=== PATIENT | male | born 1975 | race Caucasian/White ===

== ENCOUNTER 2016-07-06 18:30 | Emergency (ER) | payer MEDICARE, MEDICAID ==
[~2016-07-06] VITALS: Ht 177.8 cm; Wt 95.0 kg
[~2016-07-06 18:30] MED LIST: DULO1CAP2 PO; LITH300T3 PO; SERO100T PO
[2016-07-06 18:33] VITALS: BP 152/85; PULSE 68; RESP 14; TEMP 98.7; O2SAT 98
--- NOTE | 2016-07-06 22:57 | PD ---
HPI Chief Complaint: Psychiatric Symptoms Time Seen by Provider: 22:42 Travel History International Travel<30 days: No Contact w/Intl Traveler<30days: No Traveled to known affect area: No History of Present Illness HPI Patient is a 40-year-old male who presents emergency department for psychiatric evaluation. The patient states he has a history of schizoaffective disorder for which she takes lithium, Seroquel, and another antidepressant medication. The patient states she's been noncompliant with his medications for 2 and half weeks because he was only given a prescription for 5 days when he was discharged, last month, from the psychiatric department. The patient states he was supposed to follow-up at [facility], however, they will not take his insurance. The patient does complain of suicide ideation, denies any current homicidal ideation. He does note occasional auditory hallucinations, but denies any current voices. He denies any visual hallucinations or delusions. The patient did drink alcohol yesterday, last use marijuana 2 days ago, but denies any illicit drug use or alcohol use today. Symptoms are moderate, possibly exacerbated by history of schizoaffective disorder, and there are no current alleviating factors. PFSH Past Medical History Arthritis: No Asthma: No Autoimmune Disease: No Blood Disorders: No Anxiety: Yes Depression: Yes Heart Rhythm Problems: No Cancer: No Cardiovascular Problems: No High Cholesterol: No Chemotherapy: No Chest Pain: No Congestive Heart Failure: No COPD: No Cerebrovascular Accident: No Diabetes: No Diminished Hearing: No Endocrine: No GERD: No Genitourinary: No Headaches: No Hiatal Hernia: No Herniated Disk: Yes (x 4) Hypertension: Yes Immune Disorder: No Kidney Stones: No Musculoskeletal: Yes (herniated disk) Neurologic: No Psychiatric: Yes Reproductive: No Respiratory: No Migraines: No Myocardial Infarction: No Radiation Therapy: No Renal Failure: No Schizophrenia: Yes Seizures: Yes Sickle Cell Disease: No Sleep Apnea: No Thyroid Disease: No Ulcer: No Past Surgical History Abdominal Surgery: No AICD: No Arteriovenous Shunt: No Cardiac Surgery: No Ear Surgery: No Endocrine Surgery: No Eye Surgery: No Genitourinary Surgery: No Gynecologic Surgery: No Insulin Pump: No Joint Replacement: No Oral Surgery: No Pacemaker: No Thoracic Surgery: No Other Surgery: No Social History Alcohol Use: Yes (occassionally ) Tobacco Use: Yes (1PPD ) Substance Use: Yes (mArijuana) Allergies-Medications (Allergen,Severity, Reaction): Coded Allergies: Zoloft (Verified Allergy, Severe, Anaphylaxis, 07/06/16) Haldol (Verified Allergy, Mild, 07/06/16) Risperdal (Verified Allergy, Unknown, 07/06/16) Per CINTHIA Campa, [facility]. Reported Meds & Prescriptions Reported Meds & Active Scripts Active Seroquel (Quetiapine Fumarate) 100 Mg Tab 100 Mg PO DIRECTED 5 Days Take 100mg by mouth in the morning and 200mg by mouth at bedtime. [place] Carbonate 300 Mg Tab 300 Mg PO TID [address] (Duloxetine HCl) 30 Mg Capdr 30 Mg PO DAILY 5 Days Reported Lortab (Hydrocodone-Acetaminophen) 10-325 Mg Tab 1 Tab PO Q4H PRN Review of Systems Except as stated in HPI: all other systems reviewed are Neg General / Constitutional: No: Fever Cardiovascular: No: Chest Pain or Discomfort Respiratory: No: Shortness of Breath Gastrointestinal: No: Nausea, Vomiting, Abdominal Pain Psychiatric: Positive: Suicidal Ideations, Disorder of Thought, Mood Disorder, Substance Abuse, No: Homicidal Ideation Physical Exam Narrative GENERAL: Awake, alert, nontoxic-appearing 40-year-old male who appears his stated age and is in no acute respiratory distress. SKIN: Warm and dry. HEAD: Atraumatic. Normocephalic. EYES: Pupils equal and round. Apparent extra. The right eye. ENT: No nasal bleeding or discharge. Mucous membranes pink and moist. NECK: Trachea midline. No JVD. CARDIOVASCULAR: Regular rate and rhythm. No murmur appreciated. RESPIRATORY: No accessory muscle use. Clear to auscultation. Breath sounds equal bilaterally. MUSCULOSKELETAL: No obvious deformities. No clubbing. No cyanosis. No edema. NEUROLOGICAL: Awake and alert. No obvious cranial nerve deficits. Motor grossly within normal limits. Normal speech. Nonfocal. Oriented 4. Follows commands without difficulty. PSYCHIATRIC: Appropriate mood and affect; insight and judgment normal. Data Data Last Documented VS Vital Signs Date Time Temp Pulse Resp B/P Pulse Ox O2 Delivery O2 Flow Rate FiO2 07/06/16 23:00 58 16 07/06/16 18:33 98.7 152/85 98 Room Air Orders Complete Blood Count With Diff (07/06/16 22:50) Comprehensive Metabolic Panel (07/06/16 22:50) Drug Screen, Random Urine (07/06/16 22:50) Alcohol (Ethanol) (07/06/16 22:50) Psych Screen (07/06/16 22:50) [place] (Li) (07/06/16 22:50) Labs Laboratory Tests Test 07/07/16 00:00 White Blood Count 5.6 TH/MM3 Red Blood Count 5.59 MIL/MM3 Hemoglobin 15.9 GM/DL Hematocrit 46.1 % Mean Corpuscular Volume 82.4 FL Mean Corpuscular Hemoglobin 28.4 PG Mean Corpuscular Hemoglobin 34.5 % Concent Red Cell Distribution Width 13.7 % Platelet Count 198 TH/MM3 Mean Platelet Volume 9.7 FL Neutrophils (%) (Auto) 53.1 % Lymphocytes (%) (Auto) 28.4 % Monocytes (%) (Auto) 12.2 % Eosinophils (%) (Auto) 5.0 % Basophils (%) (Auto) 1.3 % Neutrophils # (Auto) 3.0 TH/MM3 Lymphocytes # (Auto) 1.6 TH/MM3 Monocytes # (Auto) 0.7 TH/MM3 Eosinophils # (Auto) 0.3 TH/MM3 Basophils # (Auto) 0.1 TH/MM3 CBC Comment DIFF FINAL Differential Comment Sodium Level 137 MEQ/L Potassium Level 4.1 MEQ/L Chloride Level 102 MEQ/L Carbon Dioxide Level 31.4 MEQ/L Anion Gap 4 MEQ/L Blood Urea Nitrogen 9 MG/DL Creatinine 0.99 MG/DL Estimat Glomerular Filtration 84 ML/MIN Rate Random Glucose 120 MG/DL Calcium Level 9.0 MG/DL Total Bilirubin 0.8 MG/DL Aspartate Amino Transf 23 U/L (AST/SGOT) Alanine Aminotransferase 27 U/L (ALT/SGPT) Alkaline Phosphatase 74 U/L Total Protein 6.7 GM/DL Albumin 4.0 GM/DL [place] Level LESS THAN 0.1 MEQ/L Ethyl Alcohol Level LESS THAN 3 MG/DL MDM Medical Decision Making Medical Screen Exam Complete: Yes Emergency Medical Condition: Yes Medical Record Reviewed: Yes Interpretation(s) Laboratory Tests Test 07/07/16 00:00 White Blood Count 5.6 TH/MM3 Red Blood Count 5.59 MIL/MM3 Hemoglobin 15.9 GM/DL Hematocrit 46.1 % Mean Corpuscular Volume 82.4 FL Mean Corpuscular Hemoglobin 28.4 PG Mean Corpuscular Hemoglobin 34.5 % Concent Red Cell Distribution Width 13.7 % Platelet Count 198 TH/MM3 Mean Platelet Volume 9.7 FL Neutrophils (%) (Auto) 53.1 % Lymphocytes (%) (Auto) 28.4 % Monocytes (%) (Auto) 12.2 % Eosinophils (%) (Auto) 5.0 % Basophils (%) (Auto) 1.3 % Neutrophils # (Auto) 3.0 TH/MM3 Lymphocytes # (Auto) 1.6 TH/MM3 Monocytes # (Auto) 0.7 TH/MM3 Eosinophils # (Auto) 0.3 TH/MM3 Basophils # (Auto) 0.1 TH/MM3 CBC Comment DIFF FINAL Differential Comment Sodium Level 137 MEQ/L Potassium Level 4.1 MEQ/L Chloride Level 102 MEQ/L Carbon Dioxide Level 31.4 MEQ/L Anion Gap 4 MEQ/L Blood Urea Nitrogen 9 MG/DL Creatinine 0.99 MG/DL Estimat Glomerular Filtration 84 ML/MIN Rate Random Glucose 120 MG/DL Calcium Level 9.0 MG/DL Total Bilirubin 0.8 MG/DL Aspartate Amino Transf 23 U/L (AST/SGOT) Alanine Aminotransferase 27 U/L (ALT/SGPT) Alkaline Phosphatase 74 U/L Total Protein 6.7 GM/DL Albumin 4.0 GM/DL [place] Level LESS THAN 0.1 MEQ/L Ethyl Alcohol Level LESS THAN 3 MG/DL Differential Diagnosis differential diagnosis includes schizoaffective disorder, mood disorder, substance induced mood disorder, suicidal ideation, depressive disorder, malingering. Narrative Course Labs are drawn and sent. Psychiatric evaluation was ordered. [place] is less than 0.1. Labs are unremarkable. The patient is medically cleared to be evaluated by psychiatry. Disposition as per psych. Diagnosis Primary Impression: Depression with suicidal ideation Additional Impression: Schizoaffective disorder, depressive type Condition: Stable Amrit Del Rio MD Jul 06, 2016 22:57
[2016-07-06] MEDS ORDERED: HYDR-3535 PO (23:43)
[2016-07-07 00:18] LABS: BASOPHIL # 0.1 TH/MM3 (0-0.2); BASOPHIL % 1.3 % (0.0-2.0); EOSINOPHIL # 0.3 TH/MM3 (0-0.4); HEMATOCRIT 46.1 % (39.0-51.0); HEMO FLAGS DIFF FINAL; LYMPH % 28.4 % (9.0-44.0); LYMPHOCYTE # 1.6 TH/MM3 (1.0-4.8); MEAN CELL VOLUME 82.4 FL (80.0-100.0); MEAN CORPUSCULAR HEMOGLOBIN 28.4 PG (27.0-34.0); MEAN CORPUSCULAR HGB CONC 34.5 % (32.0-36.0); MONO % 12.2 % (0.0-8.0); NEUT % 53.1 % (16.0-70.0); PLATELET COUNT 198 TH/MM3 (150-450); RED BLOOD COUNT 5.59 MIL/MM3 (4.50-5.90); RED CELL DISTRIBUTION WIDTH 13.7 % (11.6-17.2); WHITE BLOOD COUNT 5.6 TH/MM3 (4.0-11.0)
[2016-07-07 00:38] LABS: ALT (GPT) 27 U/L (12-78); ANION GAP 4 MEQ/L (5-15); AST (GOT) 23 U/L (15-37); BICARBONATE 31.4 MEQ/L (21.0-32.0); BLOOD UREA NITROGEN 9 MG/DL (7-18); CHLORIDE 102 MEQ/L (98-107); GLOMERULAR FILTRATION RATE 84 ML/MIN (>89); POTASSIUM 4.1 MEQ/L (3.5-5.1); SODIUM (NA) 137 MEQ/L (136-145)
[2016-07-07 00:41] LABS: ALKALINE PHOSPHATASE 74 U/L (45-117); TOTAL BILIRUBIN ADULT 0.8 MG/DL (0.2-1.0)
[2016-07-07 08:51] LABS: AMPHETAMINE, URINE NEG (NEG); BARBITURATES, URINE NEG (NEG); COCAINE, URINE NEG (NEG)
[2016-07-07 12:51] VITALS: BP 122/58; PULSE 56; RESP 18; TEMP 97.8; O2SAT 98
[2016-07-07 18:26] VITALS: BP 136/65; PULSE 88; RESP 17; O2SAT 95
[2016-07-07 22:43] VITALS: BP 139/71; PULSE 54; RESP 18; O2SAT 99
[2016-07-08 02:33] VITALS: BP 115/62; PULSE 57; RESP 18; O2SAT 100
[2016-07-08 06:27] VITALS: BP 115/67; PULSE 62; RESP 17; O2SAT 98
[2016-07-08 10:29] VITALS: BP 113/64; PULSE 68; RESP 16; O2SAT 98
--- NOTE | 2016-07-08 11:19 | PD ---
History of Present Illness Chief Complaint: Psychiatric Symptoms Time Seen by Provider: 10:45 Travel History International Travel<30 Days: No Contact w/Intl Traveler<30days: No Known affected area: No Legal Status Legal Status: Voluntary History of Present Illness: History of Present Illness HPI Patient is a 40-year-old male with history of schizoaffective disorder bipolar type who presents emergency department on a voluntary basis for psychiatric evaluation. As per Ed documentation included in this report "the patient states she's been noncompliant with his psychiatric medications for 2 and half weeks because he was only given a prescription for 5 days when he was discharged last month . The patient states he was supposed to follow-up at [facility] , however, they will not take his insurance. The patient does complain of suicide ideation, denies any current homicidal ideation. He does note occasional auditory hallucinations, but denies any current voices. He denies any visual hallucinations or delusions. The patient did drink alcohol yesterday , last use marijuana 2 days ago, but denies any illicit drug use or alcohol use today. No toxicology report is available at this time. BAL is less than 3. Patient has been monitored here in the ED for over 24 hours with no behavioral or suicidality.He has slept well and has eaten well. He has voiced no complaints. As per medical record review he was last hosp at [facility] on Jun 08 until May. At the time he was under the care of Dr. Suárez. In terms of psychiatric follow up he provides various different reasons for not adhering to his medications such as not having transportation, not having money to buy the medication. At some point he did report that his PCP Dr. Chong was prescribing his medications and that he planned on returning to him for follow up care. Patient alert and oriented, speech is clear and logical. He presents as very calm, engaging, cooperative. Reports he slept well.Does not appear to be responding to internal stimuli. There is no indication of any acute psychiatric symptomatology at this time. He reports that he has been experiencing difficulties for the past 12 years including that he believes that his house has been under video surveillance. He does not present any acute stressors prompting his seeking treatment at the ED except to say that he has been off his medications. Patient does not report suicidal ideation until we begin to discuss possible discharge from the ED. He then states " that I may become suicidal and may in fact try to obtain a weapon". When asked if he has a weapon he states he does not own any weapon but that he may know where to purchase one. PFSH Past Medical History Arthritis: No Asthma: No Autoimmune Disease: No Blood Disorders: No Anxiety: Yes Depression: Yes Heart Rhythm Problems: No Cancer: No Cardiovascular Problems: No High Cholesterol: No Chemotherapy: No Chest Pain: No Congestive Heart Failure: No COPD: No Cerebrovascular Accident: No Diabetes: No Diminished Hearing: No Endocrine: No GERD: No Genitourinary: No Headaches: No Hiatal Hernia: No Herniated Disk: Yes (x 4) Hypertension: Yes Immune Disorder: No Kidney Stones: No Musculoskeletal: Yes (herniated disk) Neurologic: No Psychiatric: Yes Reproductive: No Respiratory: No Migraines: No Myocardial Infarction: No Radiation Therapy: No Renal Failure: No Schizophrenia: Yes Seizures: Yes Sickle Cell Disease: No Sleep Apnea: No Thyroid Disease: No Ulcer: No Tetanus Vaccination: Unknown Influenza Vaccination: No Past Surgical History Surgical History: No Previous Surgery Abdominal Surgery: No AICD: No Arteriovenous Shunt: No Cardiac Surgery: No Ear Surgery: No Endocrine Surgery: No Eye Surgery: No Genitourinary Surgery: No Gynecologic Surgery: No Insulin Pump: No Joint Replacement: No Oral Surgery: No Pacemaker: No Thoracic Surgery: No Other Surgery: No Psychiatric History Psychiatric History Hx Psychiatric Treatment: [facility], [facility] [place] History of Inpatient [place]: [place] [place] Guns or firearms in home: No Social History Single male who lives by himself in a motel room. he reports he owns a home that he is remodeling. He reports he is disabled. Hx Alcohol Use: Yes (occassionally ) Hx Tobacco Use: Yes (1PPD ) Hx Substance Use: Yes (mArijuana) Substance Use Type: Crack, Marijuana, Cocaine Hx of Substance Use Treatment: No Family Psychiatric History Mother with reported hx of schizophrenia Allergies-Medications (Allergen,Severity, Reaction): Coded Allergies: Zoloft (Verified Allergy, Severe, Anaphylaxis, 07/06/16) Haldol (Verified Allergy, Mild, 07/06/16) Risperdal (Verified Allergy, Unknown, 07/06/16) Per CINTHIA Campa, [facility]. Reported Meds & Prescriptions Reported Meds & Active Scripts Active Seroquel (Quetiapine Fumarate) 100 Mg Tab 100 Mg PO DIRECTED 5 Days Take 100mg by mouth in the morning and 200mg by mouth at bedtime. [place] Carbonate 300 Mg Tab 300 Mg PO TID [address] (Duloxetine HCl) 30 Mg Capdr 30 Mg PO DAILY 5 Days Reported Lortab (Hydrocodone-Acetaminophen) 10-325 Mg Tab 1 Tab PO Q4H PRN Review of Systems Except as stated in HPI: all other systems reviewed are Neg Psychiatric: COMPLAINS OF: Mood changes Exam Alert: Yes [place]: Person (ox4) Mood: Calm Affect: Euthymic Speech: Clear, Logical Eye Contact: Indirect Memory Intact: Comment (not impaired) Hallucinations: Other (negative) Delusions: No Suicidal: Ideation (negative. On[place] conditional upon discussion of discharge. ) Homicidal: Ideation (Negative) Insight/Judgement Poor. Poor MDM Medical Decision Making Medical Record Reviewed: Yes Assessment/Plan 40 year old male with history of Schizoaffective disorder who presents under a voluntary status under a voluntary status who reported that he may become suicidal in the future if he were to be discharged. He also requests to be transferred to another facility and provides me with a brochure from [employer]. He is clearly bargaining and appears to be at least malingering and exaggerating his symptomatology in order to obtain assisted or other secondary gain. he does not present inminnent risk to self at this time and his symptoms appear to be conditional in nature. Patient at this time does not meet criteria for BA. He will be discharged at this time with a 10 day supply of medication Instructed to follow up with [facility]. Prior to leaving RN in [facility] pod informed me that patient refused his taxi home as he wanted to go to the mall to walk aroaund. Orders Diet Regular Basic (07/07/16 Lunch) Diet Regular Basic (07/07/16 Dinner) Hydroxyzine Pamoate (Vistaril) (07/07/16 21:45) Diet Regular Basic (07/08/16 Breakfast) Diet Regular Basic (07/08/16 Lunch) Results Vital Signs Date Time Temp Pulse Resp B/P Pulse Ox O2 Delivery O2 Flow Rate FiO2 07/08/16 10:29 68 16 113/64 98 Room Air 07/08/16 06:27 62 17 115/67 98 07/08/16 02:33 57 18 115/62 100 Room Air 07/07/16 22:43 54 18 139/71 99 Room Air 07/07/16 18:26 88 17 136/65 95 Room Air 07/07/16 12:51 97.8 56 18 122/58 98 Room Air Diagnosis Primary Impression: Adjustment disorder with mixed disturbance of emotions and conduct Additional Impression: Schizoaffective disorder, bipolar type Ruled Out: Depression with suicidal ideation Psychiatrically Cleared: Yes Prescriptions Quetiapine (Seroquel)100 Mg [id number] Mg PO BID #20 TAB Ref 0 Prov:Arianna Barksdale ARN 07/08/16 [place]ate 300 Mg [id number] Mg PO TID #30 CAP Ref 0 Prov:Arianna Barksdale ARN 07/08/16 Duloxetine (Jose STOVALL)30 Mg Capdr30 Mg PO DAILY #10 CAP Ref 0 Prov:Arianna Barksdale ARN 07/08/16 Disposition: 01 DISCHARGE HOME Condition: Stable Problem Qualifiers Arianna Barksdale ARN Jul 08, 2016 11:18
[2016-07-08] MEDS ORDERED: CYMB30CA PO (11:29)
[2016-07-08] MEDS ORDERED: LITH300C2 PO (11:30)
[2016-07-08] MEDS ORDERED: SERO100T PO (11:32)
[2016-07-08] MEDS ORDERED: LITHIUM CARBONATE 300 MG TAB PO SCH (13:00)
[2016-07-08] MEDS ORDERED: QUEtiapine FUMARATE 100 MG TAB PO SCH (21:00)
[2016-07-09] MEDS ORDERED: DULoxetine HCl DR 30 MG CAP PO SCH (09:00)
== END 2016-07-08 12:15 | disposition home or self-care (01) ==
LOC: NEPA 18:30 → NEPJ 07-08 12:15
DX: F43.25 Adjustment disorder with mixed disturbance of emotions and conduct (principal); F25.0 Schizoaffective disorder, bipolar type; I10 Essential (primary) hypertension; F17.210 Nicotine dependence, cigarettes, uncomplicated
CPT/HCPCS: 80053; 80178; 80307; 80320; 85025; 99284

== ENCOUNTER 2016-07-08 22:00 | Inpatient (IN) | payer MEDICARE, MEDICAID ==
[~2016-07-08] VITALS: Ht 177.8 cm; Wt 86.7 kg
[~2016-07-08 22:00] MED LIST changes: +CYMB30CA PO; +HYDR-3535 PO; +LITH300C2 PO
[2016-07-08 22:11] VITALS: BP 141/82; PULSE 80; RESP 16; TEMP 98.1; O2SAT 100
--- NOTE | 2016-07-08 22:23 | PD ---
HPI Chief Complaint: Psychiatric Symptoms Time Seen by Provider: 22:10 Travel History International Travel<30 days: No Contact w/Intl Traveler<30days: No Traveled to known affect area: No History of Present Illness HPI This is a 40-year-old male who reports a history of schizophrenia, bipolar disorder, anxiety and depression. He presents under [place] act initiated by the [employer]. According to his paperwork, "Yara stated he attempted to commit suicide 3 days ago which did not work. On today's date Yara stated he was having the urge to kill himself again." The patient reports that he came here voluntarily on July 06 for psychiatric evaluation. He was discharged this morning and he says that [place] and [place]. He was feeling increasingly depressed and suicidal and this prompted him to call 911. He was then placed under [place] act. He denies any drug or alcohol use tonight. He has been prescribed Seroquel, lithium and Cymbalta in the past and was given refills this morning however he never made it to the pharmacy to get them filled. He says that he's been feeling depressed, suicidal. He believes that there are cameras in his house and so he has been living in a motel for the past 9 months in order to avoid the cameras. He does not currently see a psychiatrist. He has no other complaints at this time. [facility] Past Medical History Arthritis: No Asthma: No Autoimmune Disease: No Blood Disorders: No Anxiety: Yes Depression: Yes Heart Rhythm Problems: No Cancer: No Cardiovascular Problems: No High Cholesterol: No Chemotherapy: No Chest Pain: No Congestive Heart Failure: No COPD: No Cerebrovascular Accident: No Diabetes: No Diminished Hearing: No Endocrine: No GERD: No Genitourinary: No Headaches: No Hiatal Hernia: No Herniated Disk: Yes (x 4) Hypertension: Yes Immune Disorder: No Kidney Stones: No Musculoskeletal: Yes (herniated disk) Neurologic: No Psychiatric: Yes Reproductive: No Respiratory: No Migraines: No Myocardial Infarction: No Radiation Therapy: No Renal Failure: No Schizophrenia: Yes Seizures: Yes Sickle Cell Disease: No Sleep Apnea: No Thyroid Disease: No Ulcer: No Tetanus Vaccination: Never Vaccinated Influenza Vaccination: No Past Surgical History Surgical History: No Previous Surgery Abdominal Surgery: No AICD: No Arteriovenous Shunt: No Cardiac Surgery: No Ear Surgery: No Endocrine Surgery: No Eye Surgery: No Genitourinary Surgery: No Gynecologic Surgery: No Insulin Pump: No Joint Replacement: No Oral Surgery: No Pacemaker: No Thoracic Surgery: No Other Surgery: No Social History Alcohol Use: Yes (occassionally ) Tobacco Use: Yes (1PPD ) Substance Use: Yes (mArijuana) Allergies-Medications (Allergen,Severity, Reaction): Coded Allergies: Zoloft (Verified Allergy, Severe, Anaphylaxis, 07/08/16) Haldol (Verified Allergy, Mild, 07/08/16) Risperdal (Verified Allergy, Unknown, 07/08/16) Per CINTHIA Campa, [facility]. Reported Meds & Prescriptions Reported Meds & Active Scripts Active Seroquel (Quetiapine Fumarate) 100 Mg Tab 100 Mg PO BID [place] Carbonate 300 Mg Cap 300 Mg PO TID Cymbalta DR (Duloxetine HCl) 30 Mg Capdr 30 Mg PO DAILY Seroquel (Quetiapine Fumarate) 100 Mg Tab 100 Mg PO DIRECTED 5 Days Take 100mg by mouth in the morning and 200mg by mouth at bedtime. [place] Carbonate 300 Mg Tab 300 Mg PO TID [address] (Duloxetine HCl) 30 Mg Capdr 30 Mg PO DAILY 5 Days Reported Lortab (Hydrocodone-Acetaminophen) 10-325 Mg Tab 1 Tab PO Q4H PRN Review of Systems Except as stated in HPI: all other systems reviewed are Neg Physical Exam Narrative GENERAL: Well-developed well-nourished male in no acute distress SKIN: Warm and dry. HEAD: Atraumatic. Normocephalic. EYES: Pupils equal and round. No scleral icterus. No injection or drainage. ENT: No nasal bleeding or discharge. Mucous membranes pink and moist. NECK: Trachea midline. No JVD. CARDIOVASCULAR: Regular rate and rhythm. No murmur appreciated. RESPIRATORY: No accessory muscle use. Clear to auscultation. Breath sounds equal bilaterally. GASTROINTESTINAL: Abdomen soft, non-tender, nondistended. MUSCULOSKELETAL: No obvious deformities. NEUROLOGICAL: Awake and alert. No obvious cranial nerve deficits. Motor grossly within normal limits. Normal speech. PSYCHIATRIC: Insight and judgment appear limited. Appropriate mood. Data Data Last Documented VS Vital Signs Date Time Temp Pulse Resp B/P Pulse Ox O2 Delivery O2 Flow Rate FiO2 07/08/16 22:11 98.1 80 16 141/82 100 Orders Drug Screen, Random Urine (07/08/16 22:16) Alcohol (Ethanol) (07/08/16 22:16) Psych Screen (07/08/16 22:16) [place] (Li) (07/08/16 22:16) Labs Laboratory Tests Test 07/08/16 22:10 [place] Level 1.4 MEQ/L Ethyl Alcohol Level LESS THAN 3 MG/DL MDM Medical Decision Making Medical Screen Exam Complete: Yes Emergency Medical Condition: Yes Medical Record Reviewed: Yes Differential Diagnosis Schizophrenia, medication noncompliance, acute psychosis, bipolar disorder, substance induced mood disorder, malingering Narrative Course 40-year-old male who reports a history of bipolar disorder and schizophrenia presents under [place] act for evaluation of suicidal ideation. He was just discharged this morning by psychiatry. He was given refills of Seroquel, lithium and Cymbalta however he has not started taking them. I have reviewed his lab work from 2 days ago and it was unremarkable. We will recheck his lithium level today although he says that he has not been taking the lithium. We will also recheck a drug screen and an alcohol level. Mental health screening discussed with the patient. Psychiatric screen ordered. The patient is medically cleared for psychiatric disposition. Dom Haddad Jul 08, 2016 22:23
[2016-07-09 01:23] LABS: AMPHETAMINE, URINE NEG (NEG); BARBITURATES, URINE NEG (NEG); COCAINE, URINE NEG (NEG)
[2016-07-09 06:00] VITALS: BP 97/52; PULSE 54; RESP 18; O2SAT 98
[2016-07-09 10:39] VITALS: BP 114/57; PULSE 55; RESP 17; TEMP 98.4; O2SAT 100
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
[2016-07-09] MEDS ORDERED: MAGNESIUM HYDROXIDE SUSP 30 ML CUP PO PRN (12:45)
[2016-07-09] MEDS ORDERED: LORazepam 2 MG/ML VIAL IM PRN ×2 (12:45)
[2016-07-09] MEDS ORDERED: ALUMINUM/MAGNESIUM/SIMETH 30 ML CUP PO PRN (12:45)
[2016-07-09] MEDS ORDERED: LITHIUM CARBONATE 300 MG TAB PO SCH (14:00)
[2016-07-09 14:06] VITALS: BP 114/57
[2016-07-09 14:23] VITALS: BP 111/68; PULSE 68; RESP 18; TEMP 98.4; O2SAT 97
[2016-07-09] MEDS: NICOTINE 21 MG/24 HR PATCH T-DERMAL SCH (15:34)
[2016-07-09] MEDS: DULoxetine HCl DR 30 MG CAP PO SCH (20:51)
[2016-07-09] MEDS: ACETAMINOPHEN 325 MG TAB PO PRN (20:51)
[2016-07-09] MEDS: LORazepam 0.5 MG TAB PO PRN (20:51)
[2016-07-09] MEDS: QUEtiapine FUMARATE 200 MG TAB PO SCH (21:48)
[2016-07-10 06:15] VITALS: BP 104/68; PULSE 52; RESP 18; TEMP 97.6
[2016-07-10 07:29] LABS: ANION GAP 6 MEQ/L (5-15); BLOOD UREA NITROGEN 13 MG/DL (7-18); CHLORIDE 104 MEQ/L (98-107); GLOMERULAR FILTRATION RATE 87 ML/MIN (>89); POTASSIUM 3.7 MEQ/L (3.5-5.1); SODIUM (NA) 140 MEQ/L (136-145)
[2016-07-10 07:30] LABS: HDL CHOLESTEROL 34.2 MG/DL (40.0-60.0)
[2016-07-10 07:31] LABS: LDL CHOLESTEROL 89 MG/DL (0-99)
[2016-07-10] MEDS: NICOTINE 21 MG/24 HR PATCH T-DERMAL SCH (08:27)
[2016-07-10] MEDS: QUEtiapine FUMARATE 100 MG TAB PO SCH (08:27)
[2016-07-10] MEDS: DULoxetine HCl DR 30 MG CAP PO SCH ×2 (09:17→20:10)
[2016-07-10] MEDS: LORazepam 0.5 MG TAB PO PRN (09:17)
[2016-07-10 10:44] LABS: HEMOGLOBIN A1a 0.7 %; HEMOGLOBIN A1b 1.2 %; HEMOGLOBIN Ao 88.1 %; HEMOGLOBIN LA1C 1.7 %; HEMOGLOBIN P3 3.1 %
--- NOTE | 2016-07-10 11:11 | HHI.PYPN ---
Subjective Remarks Patient was seen and discussed with the wait staff. Patient reported that he still has been feeling frustrated depressed but willing to continue to take the medication. No behavior or management problem reported. He still has lot of anger built-in and feels like he is going to explode. But his learning to control. Encouraged to participate in all the therapeutic activity on the floor. We will ask high school social science teacher to assist in finding an appropriate place. Continue with the same treatment Review of Systems Except as stated in HPI: all other systems reviewed are Neg Psychiatric: COMPLAINS OF: Mood changes, Depression, Delusions Objective Alert: Yes [place]: Person, Place, Situation Mood: Anxious, Depressed, Other (feels frustrated and angry) Affect: Labile Memory Intact: Recent (impaired) Hallucinations: Other (denies any active auditory or visual hallucinations) Delusions: Yes Delusion Type: Paranoid Suicidal: Ideation (denied any suicidal ideation intentions or plan) Homicidal: Ideation (denies but feels angry and wants to hurt people) Insight/Judgement Limited Labs Test 07/10/16 05:43 Sodium Level 140 MEQ/L Potassium Level 3.7 MEQ/L Chloride Level 104 MEQ/L Carbon Dioxide Level 30.0 MEQ/L Anion Gap 6 MEQ/L Blood Urea Nitrogen 13 MG/DL Creatinine 0.96 MG/DL Estimat Glomerular Filtration 87 ML/MIN Rate Random Glucose 81 MG/DL Calcium Level 9.0 MG/DL Triglycerides Level 146 MG/DL Cholesterol Level 152 MG/DL LDL Cholesterol 89 MG/DL HDL Cholesterol 34.2 MG/DL Cholesterol/HDL Ratio 4.44 RATIO Vitals/IOs Vital Signs Date Time Temp Pulse Resp B/P Pulse Ox O2 Delivery O2 Flow Rate FiO2 07/10/16 06:15 97.6 52 18 104/68 07/09/16 14:23 97 07/09/16 06:00 Room Air Intake and Output 07/09/16 07/09/16 07/10/16 08:00 16:00 00:00 Intake Total 480 ml Balance 480 ml Assessment & Plan Problem List: (1) Schizoaffective disorder, depressive type ICD Code: F25.1 (2) Cannabis abuse ICD Code: F12.10 Assessment & Plan Estimated LOS: days Justification for Cont. Inpt. Risk of decompensation and monitoring of the medication Request HC Surrog/Guard Advoc?: No Renzo Black MD Jul 10, 2016 11:11
[2016-07-10] MEDS: ACETAMINOPHEN 325 MG TAB PO PRN ×2 (14:36→20:10)
[2016-07-10 19:38] VITALS: BP 116/65; PULSE 73; RESP 17; TEMP 98.1; O2SAT 97
[2016-07-10] MEDS: QUEtiapine FUMARATE 200 MG TAB PO SCH (20:10)
[2016-07-10] MEDS: LORazepam 1 MG TAB PO PRN (20:10)
[2016-07-11 05:20] VITALS: BP 115/68; PULSE 60; RESP 16; TEMP 97.8
[2016-07-11] MEDS: QUEtiapine FUMARATE 100 MG TAB PO SCH (08:50)
[2016-07-11] MEDS: LORazepam 1 MG TAB PO PRN ×2 (08:50→18:16)
[2016-07-11] MEDS: NICOTINE 21 MG/24 HR PATCH T-DERMAL SCH (08:50)
[2016-07-11] MEDS: DULoxetine HCl DR 30 MG CAP PO SCH ×2 (08:50→20:39)
[2016-07-11] MEDS: ACETAMINOPHEN 325 MG TAB PO PRN (08:50)
[2016-07-11] MEDS: REMOVE OLD NICODERM (NICOTINE) PATCH TD SCH (08:50)
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
[2016-07-11] MEDS: IBUPROFEN 800 MG TAB PO PRN (18:16)
[2016-07-11 19:03] VITALS: BP 138/72; PULSE 73; RESP 18; O2SAT 97
[2016-07-11] MEDS: QUEtiapine FUMARATE 200 MG TAB PO SCH (20:39)
[2016-07-12] MEDS: LORazepam 1 MG TAB PO PRN ×3 (05:08→20:13)
[2016-07-12] MEDS: IBUPROFEN 800 MG TAB PO PRN ×3 (05:08→20:14)
[2016-07-12 05:33] VITALS: BP 129/58; PULSE 69; RESP 16; TEMP 96.6; O2SAT 96
[2016-07-12] MEDS: REMOVE OLD NICODERM (NICOTINE) PATCH TD SCH (09:00)
[2016-07-12] MEDS: DULoxetine HCl DR 30 MG CAP PO SCH ×2 (09:01→20:15)
[2016-07-12] MEDS: QUEtiapine FUMARATE 100 MG TAB PO SCH (09:02)
[2016-07-12] MEDS: NICOTINE 21 MG/24 HR PATCH T-DERMAL SCH (09:02)
--- NOTE | 2016-07-12 15:11 | HHI.PYPN ---
Subjective Remarks Patient was seen and case discussed with nursing. is perseverative on getting inpatient treatment for his hep C. Patient was advised this is an outpatient treatment protocol. Continues to think that cameras were in his house. Keeping to himself sleeping through most of the day Objective Alert: Yes [place]: Person, Place, Situation Mood: Anxious, Depressed, Other (feels frustrated and angry) Affect: Labile Memory Intact: Recent (impaired) Hallucinations: Other (denies any active auditory or visual hallucinations) Delusions: Yes Delusion Type: Paranoid Suicidal: Ideation (denied any suicidal ideation intentions or plan) Homicidal: Ideation (denies but feels angry and wants to hurt people) Insight/Judgement Poor Vitals/IOs Vital Signs Date Time Temp Pulse Resp B/P Pulse Ox O2 Delivery O2 Flow Rate FiO2 07/12/16 05:33 96.6 69 16 129/58 96 07/09/16 06:00 Room Air Assessment & Plan Problem List: (1) Schizoaffective disorder, depressive type ICD Code: F25.1 (2) Cannabis abuse ICD Code: F12.10 Assessment & Plan Continue current treatment plan Justification for Cont. Inpt. Patient would decompensate in a less restrictive setting Request HC Surrog/Guard Advoc?: No Bishop Doe DO Jul 12, 2016 15:11
[2016-07-12 18:45] VITALS: BP 119/58; PULSE 66; RESP 16; O2SAT 95
[2016-07-12] MEDS: QUEtiapine FUMARATE 200 MG TAB PO SCH (20:15)
[2016-07-13] MEDS: IBUPROFEN 800 MG TAB PO PRN ×3 (05:21→18:58)
[2016-07-13] MEDS: LORazepam 1 MG TAB PO PRN ×2 (05:21→11:28)
[2016-07-13 05:47] VITALS: BP 109/71; PULSE 63; RESP 16; TEMP 97; O2SAT 100
[2016-07-13] MEDS: DULoxetine HCl DR 30 MG CAP PO SCH ×2 (08:44→20:37)
[2016-07-13] MEDS: QUEtiapine FUMARATE 100 MG TAB PO SCH (08:44)
[2016-07-13] MEDS: REMOVE OLD NICODERM (NICOTINE) PATCH TD SCH (08:45)
[2016-07-13] MEDS: NICOTINE 21 MG/24 HR PATCH T-DERMAL SCH (08:45)
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
[2016-07-13] MEDS: diphenhydrAMINE HCL 50 MG CAP PO PRN (18:58)
[2016-07-13 19:10] VITALS: BP 126/82; PULSE 65; RESP 18; TEMP 97.2; O2SAT 100
[2016-07-13] MEDS: QUEtiapine FUMARATE 200 MG TAB PO SCH (20:37)
[2016-07-14] MEDS: LORazepam 1 MG TAB PO PRN ×2 (04:00→15:05)
[2016-07-14] MEDS: IBUPROFEN 800 MG TAB PO PRN ×3 (04:00→21:10)
[2016-07-14 06:02] VITALS: BP 124/60; PULSE 57; RESP 17; TEMP 97.4; O2SAT 100
[2016-07-14] MEDS: QUEtiapine FUMARATE 100 MG TAB PO SCH (08:53)
[2016-07-14] MEDS: DULoxetine HCl DR 30 MG CAP PO SCH ×2 (08:53→20:25)
[2016-07-14] MEDS: NICOTINE 21 MG/24 HR PATCH T-DERMAL SCH (08:55)
[2016-07-14] MEDS: REMOVE OLD NICODERM (NICOTINE) PATCH TD SCH (08:55)
--- NOTE | 2016-07-14 11:43 | HHI.PYPN ---
Subjective Remarks Patient was seen and discussed with the staffing coordinator. Patient reported that he has been feeling more depressed and frustrated wants to go back on the lithium but her his lithium level was 1.4 we will redraw the lithium level and see how much it is. No behavior or management problem reported. Patient is willing to go to an [facility] because he has been having difficulty with the outpatient follow-up when he runs out of the medication and comes back into the hospital and he wants to stop the cycle. Denied any active suicidal ideation intentions or plan. caseworker protective services to assist. Continue with the same treatment Review of Systems Except as stated in HPI: all other systems reviewed are Neg Psychiatric: COMPLAINS OF: Anxiety, Mood changes, Depression Objective Alert: Yes [place]: Person, Place, Situation Mood: Anxious, Depressed, Other (feels frustrated ) Affect: Labile Memory Intact: Recent (impaired) Hallucinations: Other (denies any active auditory or visual hallucinations) Delusions: Yes Delusion Type: Paranoid Suicidal: Ideation (patient denied any suicidal ideation or plan in the hospital) Homicidal: Ideation (patient denies any suicidal homicidal ideation or plan while he is in the hospital) Insight/Judgement Fair to limited Vitals/IOs Vital Signs Date Time Temp Pulse Resp B/P Pulse Ox O2 Delivery O2 Flow Rate FiO2 07/14/16 06:02 97.4 57 17 124/60 100 Assessment & Plan Problem List: (1) Schizoaffective disorder, depressive type ICD Code: F25.1 (2) Cannabis abuse ICD Code: F12.10 Assessment & Plan Estimated LOS: days Justification for Cont. Inpt. Risk for decompensation at a lower level of care and noncompliance Request HC Surrog/Guard Advoc?: No Renzo Black MD Jul 14, 2016 11:43
[2016-07-14 20:00] VITALS: BP 126/65; PULSE 67; RESP 18; TEMP 97.3
[2016-07-14] MEDS: QUEtiapine FUMARATE 200 MG TAB PO SCH (20:25)
[2016-07-15] MEDS: LORazepam 1 MG TAB PO PRN ×2 (05:19→17:23)
[2016-07-15] MEDS: IBUPROFEN 800 MG TAB PO PRN ×2 (05:20→17:23)
[2016-07-15 06:03] VITALS: BP 99/55; PULSE 53; RESP 18; TEMP 97.7; O2SAT 98
[2016-07-15] MEDS: DULoxetine HCl DR 30 MG CAP PO SCH ×2 (08:32→20:40)
[2016-07-15] MEDS: QUEtiapine FUMARATE 100 MG TAB PO SCH (08:32)
[2016-07-15] MEDS: NICOTINE 21 MG/24 HR PATCH T-DERMAL SCH (08:33)
[2016-07-15] MEDS: REMOVE OLD NICODERM (NICOTINE) PATCH TD SCH (08:33)
--- NOTE | 2016-07-15 13:29 | HHI.PYPN ---
Subjective Remarks Patient was seen and discussed with the staff radiologist. Patient claimed that he has been doing okay but still feels depressed and lonely and frustrated. Patient also reported that he feels safe in the hospital. Because of his past history of noncompliance in taking medication or running out of the medication he was encouraged to go to an [facility] we will ask social science teacher to check availability. No behavior or management problem reported. Patient is compliant in taking medication. No side effects were complained. Continue with the same treatment Review of Systems Except as stated in HPI: all other systems reviewed are Neg Psychiatric: COMPLAINS OF: Mood changes, Depression Objective Alert: Yes [place]: Person, Place, Situation Mood: Anxious, Depressed, Other (feels frustrated ) Affect: Labile Memory Intact: Recent (impaired) Hallucinations: Other (denies any active auditory or visual hallucinations) Delusions: Yes Delusion Type: Paranoid Suicidal: Ideation (patient denied any suicidal ideation or plan in the hospital) Homicidal: Ideation (patient denies any suicidal homicidal ideation or plan while he is in the hospital) Insight/Judgement Fair Vitals/IOs Vital Signs Date Time Temp Pulse Resp B/P Pulse Ox O2 Delivery O2 Flow Rate FiO2 07/15/16 06:03 97.7 53 18 99/55 98 Assessment & Plan Problem List: (1) Schizoaffective disorder, depressive type ICD Code: F25.1 (2) Cannabis abuse ICD Code: F12.10 Assessment & Plan Estimated LOS: days Justification for Cont. Inpt. Risk of decompensation and safety issue monitoring of the medication Request HC Surrog/Guard Advoc?: No Renzo Black MD Jul 15, 2016 13:29
[2016-07-15 18:00] VITALS: BP 147/76; PULSE 67; RESP 18; TEMP 98.9; O2SAT 100
[2016-07-15 20:28] VITALS: BP 147/76; PULSE 67; RESP 18; TEMP 98.9
[2016-07-15] MEDS: QUEtiapine FUMARATE 200 MG TAB PO SCH (20:41)
[2016-07-15] MEDS: diphenhydrAMINE HCL 50 MG CAP PO PRN (20:41)
[2016-07-16] MEDS: IBUPROFEN 800 MG TAB PO PRN ×3 (05:17→21:38)
[2016-07-16] MEDS: LORazepam 1 MG TAB PO PRN ×2 (05:17→17:15)
[2016-07-16 06:22] VITALS: BP 112/74; PULSE 59; RESP 16; TEMP 97.9
[2016-07-16] MEDS: NICOTINE 21 MG/24 HR PATCH T-DERMAL SCH (09:00)
[2016-07-16] MEDS: REMOVE OLD NICODERM (NICOTINE) PATCH TD SCH (09:00)
[2016-07-16] MEDS: QUEtiapine FUMARATE 100 MG TAB PO SCH (09:01)
[2016-07-16] MEDS: DULoxetine HCl DR 30 MG CAP PO SCH ×2 (09:02→21:32)
--- NOTE | 2016-07-16 11:12 | HHI.PYPN ---
Subjective Remarks Patient was seen and discussed with the staff training and development manager. Patient claimed that he has been feeling sad and depressed and tends to isolate himself and keeps to himself he was encouraged to participate in all the therapeutic activity on the floor. No behavior or management problem reported. Patient is worried about his transportation upon discharge and going to the doctors and getting the medication. Historically he has been running out of the medication and decompensating. Patient wants to resume his lithium will check his lithium level. Continue with the same treatment Review of Systems Except as stated in HPI: all other systems reviewed are Neg Psychiatric: COMPLAINS OF: Mood changes, Depression Objective Alert: Yes [place]: Person, Place, Situation Mood: Anxious, Depressed, Other (feels frustrated ) Affect: Labile Memory Intact: Recent (impaired) Hallucinations: Other (denies any active auditory or visual hallucinations) Delusions: Yes Delusion Type: Paranoid Suicidal: Ideation (patient denied any suicidal ideation or plan in the hospital) Homicidal: Ideation (patient denies any suicidal homicidal ideation or plan while he is in the hospital) Insight/Judgement Fair Remarks Attention and concentration improving. Gait normal. Language normal. Fund of knowledge average Labs Test 07/15/16 11:33 [place] Level LESS THAN 0.1 MEQ/L Vitals/IOs Vital Signs Date Time Temp Pulse Resp B/P Pulse Ox O2 Delivery O2 Flow Rate FiO2 07/16/16 06:22 97.9 59 16 112/74 07/15/16 18:00 100 Assessment & Plan Problem List: (1) Schizoaffective disorder, depressive type ICD Code: F25.1 (2) Cannabis abuse ICD Code: F12.10 Assessment & Plan Estimated LOS: days Justification for Cont. Inpt. Monitoring of the medication and risk for decompensation at a lower level of care Request HC Surrog/Guard Advoc?: No Renzo Black MD Jul 16, 2016 11:12
[2016-07-16] MEDS: LITHIUM CARBONATE 300 MG TAB PO SCH ×2 (14:39→21:34)
[2016-07-16 18:00] VITALS: BP 125/67; PULSE 63; RESP 18; TEMP 98.6; O2SAT 97
[2016-07-16] MEDS: diphenhydrAMINE HCL 50 MG CAP PO PRN (18:18)
[2016-07-16] MEDS: QUEtiapine FUMARATE 200 MG TAB PO SCH (21:32)
[2016-07-17] MEDS: LITHIUM CARBONATE 300 MG TAB PO SCH ×3 (05:03→20:01)
[2016-07-17] MEDS: LORazepam 1 MG TAB PO PRN ×2 (05:06→17:09)
[2016-07-17] MEDS: IBUPROFEN 800 MG TAB PO PRN ×2 (05:08→17:09)
[2016-07-17 05:59] VITALS: BP 107/62; PULSE 55; RESP 18; TEMP 97.6
[2016-07-17] MEDS: REMOVE OLD NICODERM (NICOTINE) PATCH TD SCH (09:00)
[2016-07-17] MEDS: DULoxetine HCl DR 30 MG CAP PO SCH ×2 (10:05→20:00)
[2016-07-17] MEDS: NICOTINE 21 MG/24 HR PATCH T-DERMAL SCH (10:06)
[2016-07-17] MEDS: QUEtiapine FUMARATE 100 MG TAB PO SCH (10:06)
--- NOTE | 2016-07-17 11:32 | HHI.PYPN ---
Subjective Remarks Patient was seen and discussed with the staffing director. Patient reported that he has been feeling little bit better on the lithium. But he is also complaining of auditory hallucination and visual hallucinations he has some trouble sleeping last night he was encouraged to stay out of the room and participate in all the therapeutic activity on the floor. No behavior problem reported. Denied any suicidal ideation intentions or plan. support services coordinator to assist him in trying to find an appropriate place for him continue with the same treatment Review of Systems Except as stated in HPI: all other systems reviewed are Neg Psychiatric: COMPLAINS OF: Mood changes, Depression, Hallucinations Objective Alert: Yes [place]: Person, Place, Situation Mood: Anxious, Depressed, Other (feels frustrated ) Affect: Labile Memory Intact: Recent (impaired) Hallucinations: Auditory, Visual Delusions: Yes Delusion Type: Paranoid Suicidal: Ideation (patient denied any suicidal ideation or plan in the hospital) Homicidal: Ideation (patient denies any suicidal homicidal ideation or plan while he is in the hospital) Insight/Judgement Fair to limited Vitals/IOs Vital Signs Date Time Temp Pulse Resp B/P Pulse Ox O2 Delivery O2 Flow Rate FiO2 07/17/16 05:59 97.6 55 18 107/62 07/16/16 18:00 97 Intake and Output 07/16/16 07/16/16 07/17/16 08:00 16:00 00:00 Intake Total 240 ml Balance 240 ml Assessment & Plan Problem List: (1) Schizoaffective disorder, depressive type ICD Code: F25.1 (2) Cannabis abuse ICD Code: F12.10 Assessment & Plan Estimated LOS: days Justification for Cont. Inpt. Monitoring of the medication and discussed decompensation Request HC Surrog/Guard Advoc?: No Renzo Black MD Jul 17, 2016 11:32
[2016-07-17 18:53] VITALS: BP 132/58; PULSE 69; RESP 18; O2SAT 98
[2016-07-17] MEDS: QUEtiapine FUMARATE 200 MG TAB PO SCH (20:00)
[2016-07-17] MEDS: diphenhydrAMINE HCL 50 MG CAP PO PRN (20:00)
[2016-07-18] MEDS: LORazepam 1 MG TAB PO PRN ×2 (05:15→16:37)
[2016-07-18 05:45] VITALS: BP 124/70; PULSE 57; RESP 16; TEMP 98
[2016-07-18] MEDS: LITHIUM CARBONATE 300 MG TAB PO SCH ×3 (05:56→21:02)
[2016-07-18] MEDS: IBUPROFEN 800 MG TAB PO PRN ×3 (05:56→20:20)
[2016-07-18] MEDS: REMOVE OLD NICODERM (NICOTINE) PATCH TD SCH (08:40)
[2016-07-18] MEDS: NICOTINE 21 MG/24 HR PATCH T-DERMAL SCH (08:40)
[2016-07-18] MEDS: QUEtiapine FUMARATE 100 MG TAB PO SCH (08:40)
[2016-07-18] MEDS: DULoxetine HCl DR 30 MG CAP PO SCH ×2 (08:40→20:20)
--- NOTE | 2016-07-18 17:50 | HHI.PYPN ---
Subjective Remarks Pt seen and discussed with staff. Pt c/o of depressed mood and feeling anxious and paranoid. Reports voices telling him cameras are watching him. [place] recently started and pt reports that historically lithium has worked well for his mood. No side effects. No SI/HI. Objective Alert: Yes [place]: Person, Place, Situation Mood: Anxious, Depressed, Other (feels frustrated ) Affect: Labile Memory Intact: Recent (impaired) Hallucinations: Auditory Delusions: Yes Delusion Type: Paranoid Suicidal: Ideation (patient denied any suicidal ideation or plan in the hospital) Homicidal: Ideation (patient denies any suicidal homicidal ideation or plan while he is in the hospital) Insight/Judgement poor Vitals/IOs Vital Signs Date Time Temp Pulse Resp B/P Pulse Ox O2 Delivery O2 Flow Rate FiO2 07/18/16 08:40 18 07/18/16 05:45 98.0 57 124/70 07/17/16 18:53 98 Assessment & Plan Problem List: (1) Schizoaffective disorder, depressive type ICD Code: F25.1 (2) Cannabis abuse ICD Code: F12.10 Assessment & Plan Continue current tx plan. Estimated LOS: days Justification for Cont. Inpt. impairments in reality testing. Request HC Surrog/Guard Advoc?: Jyotsna Carpenter MD Jul 18, 2016 17:50
[2016-07-18] MEDS: QUEtiapine FUMARATE 200 MG TAB PO SCH (20:20)
[2016-07-18] MEDS: diphenhydrAMINE HCL 50 MG CAP PO PRN (20:20)
[2016-07-18 21:39] VITALS: BP 133/77; PULSE 65; RESP 16; TEMP 98; O2SAT 96
[2016-07-19] MEDS: LORazepam 1 MG TAB PO PRN ×2 (05:20→16:54)
[2016-07-19] MEDS: LITHIUM CARBONATE 300 MG TAB PO SCH ×3 (05:20→22:00)
[2016-07-19] MEDS: IBUPROFEN 800 MG TAB PO PRN ×4 (05:23→21:19)
[2016-07-19 06:00] VITALS: BP 122/77; PULSE 67; RESP 16; TEMP 97.8
[2016-07-19] MEDS: REMOVE OLD NICODERM (NICOTINE) PATCH TD SCH (09:00)
[2016-07-19] MEDS: DULoxetine HCl DR 30 MG CAP PO SCH ×2 (10:14→21:00)
[2016-07-19] MEDS: NICOTINE 21 MG/24 HR PATCH T-DERMAL SCH (10:14)
[2016-07-19] MEDS: QUEtiapine FUMARATE 100 MG TAB PO SCH ×2 (10:16→21:00)
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
[2016-07-19 21:03] VITALS: BP 126/65; PULSE 72; TEMP 99.3; O2SAT 95
[2016-07-19] MEDS: diphenhydrAMINE HCL 50 MG CAP PO PRN (21:19)
[2016-07-20] MEDS: LORazepam 1 MG TAB PO PRN ×2 (05:25→20:02)
[2016-07-20] MEDS: IBUPROFEN 800 MG TAB PO PRN ×3 (05:26→15:50)
[2016-07-20 05:53] VITALS: BP 117/66; PULSE 68; RESP 16; TEMP 97.9
[2016-07-20] MEDS: LITHIUM CARBONATE 300 MG TAB PO SCH ×3 (06:00→21:10)
[2016-07-20] MEDS: REMOVE OLD NICODERM (NICOTINE) PATCH TD SCH (09:00)
[2016-07-20] MEDS: DULoxetine HCl DR 30 MG CAP PO SCH ×2 (09:22→20:02)
[2016-07-20] MEDS: QUEtiapine FUMARATE 100 MG TAB PO SCH ×2 (09:22→20:02)
[2016-07-20] MEDS: NICOTINE 21 MG/24 HR PATCH T-DERMAL SCH (09:23)
--- NOTE | 2016-07-20 10:50 | HHI.PYPN ---
Subjective Remarks Patient was seen and discussed with the staff development manager. Patient reported that he has not been feeling good he has been having some nightmare also complained of hearing voices feels frustrated. No other behavior or management problem reported. No side effects were complained. Continue with the same treatment adjust the medication Review of Systems Except as stated in HPI: all other systems reviewed are Neg Psychiatric: COMPLAINS OF: Mood changes, Depression, Hallucinations, Delusions Objective Alert: Yes [place]: Person, Place, Situation Mood: Anxious, Depressed, Other (having nightmares) Affect: Labile Memory Intact: Recent (impaired) Hallucinations: Auditory Delusions: Yes Delusion Type: Paranoid Suicidal: Ideation (patient denied any suicidal ideation or plan in the hospital) Homicidal: Ideation (patient denies any suicidal homicidal ideation or plan while he is in the hospital) Insight/Judgement Limited to fair Vitals/IOs Vital Signs Date Time Temp Pulse Resp B/P Pulse Ox O2 Delivery O2 Flow Rate FiO2 07/20/16 05:53 97.9 68 16 117/66 07/19/16 21:03 95 Assessment & Plan Problem List: (1) Schizoaffective disorder, depressive type ICD Code: F25.1 (2) Cannabis abuse ICD Code: F12.10 Assessment & Plan Estimated LOS: days Justification for Cont. Inpt. Monitoring of the medication and risk of decompensation Request HC Surrog/Guard Advoc?: Renzo Carrasco MD Jul 20, 2016 10:50
[2016-07-20 19:00] VITALS: BP 114/58; PULSE 76; RESP 12; TEMP 97.6; O2SAT 96
[2016-07-20] MEDS: diphenhydrAMINE HCL 50 MG CAP PO PRN (21:10)
[2016-07-21] MEDS: LITHIUM CARBONATE 300 MG TAB PO SCH ×3 (06:03→21:24)
[2016-07-21 06:17] VITALS: BP 116/68; PULSE 78; RESP 17; TEMP 97.6
[2016-07-21] MEDS: DULoxetine HCl DR 30 MG CAP PO SCH ×2 (08:52→20:36)
[2016-07-21] MEDS: QUEtiapine FUMARATE 100 MG TAB PO SCH ×2 (08:52→20:36)
[2016-07-21] MEDS: NICOTINE 21 MG/24 HR PATCH T-DERMAL SCH (08:52)
[2016-07-21] MEDS: REMOVE OLD NICODERM (NICOTINE) PATCH TD SCH (08:53)
[2016-07-21] MEDS: LORazepam 1 MG TAB PO PRN (09:26)
[2016-07-21] MEDS: IBUPROFEN 800 MG TAB PO PRN ×2 (09:27→19:26)
--- NOTE | 2016-07-21 10:25 | HHI.PYPN ---
Subjective Remarks Patient was seen and discussed with the staff toxicologist. Patient claims that he has been hearing voices telling him to hurt himself or someone else but his learning to control those impulses. He tends to isolate himself and keeps in his room he was encouraged to participate in all the therapeutic activity on the floor. No side effects were complained. Continue with the same treatment adjust the medication Review of Systems Except as stated in HPI: all other systems reviewed are Neg Psychiatric: COMPLAINS OF: Mood changes, Depression, Hallucinations Objective Alert: Yes [place]: Person, Place, Situation Mood: Anxious, Depressed, Other (having nightmares) Affect: Labile Memory Intact: Recent (impaired) Hallucinations: Auditory Delusions: Yes Delusion Type: Paranoid Suicidal: Ideation (patient denied any suicidal ideation or plan in the hospital) Homicidal: Ideation (patient denies any suicidal homicidal ideation or plan while he is in the hospital) Insight/Judgement Fair to limited Vitals/IOs Vital Signs Date Time Temp Pulse Resp B/P Pulse Ox O2 Delivery O2 Flow Rate FiO2 07/21/16 06:17 97.6 78 17 116/68 07/20/16 19:00 96 Assessment & Plan Problem List: (1) Schizoaffective disorder, depressive type ICD Code: F25.1 (2) Cannabis abuse ICD Code: F12.10 Assessment & Plan Estimated LOS: days Justification for Cont. Inpt. His current decompensation and monitoring of the medication Request HC Surrog/Guard Advoc?: No Renzo Black MD Jul 21, 2016 10:25
[2016-07-21] MEDS: ARIPiprazole 10 MG TAB PO SCH (11:39)
[2016-07-21 18:30] VITALS: BP 119/67; PULSE 82; RESP 18; TEMP 97.8; O2SAT 98
[2016-07-21] MEDS: LORazepam 0.5 MG TAB PO PRN (19:26)
[2016-07-22] MEDS: LITHIUM CARBONATE 300 MG TAB PO SCH ×3 (05:17→20:26)
[2016-07-22 05:56] VITALS: BP 108/57; PULSE 70; RESP 18; TEMP 96.9; O2SAT 100
[2016-07-22] MEDS: DULoxetine HCl DR 30 MG CAP PO SCH ×2 (08:21→20:26)
[2016-07-22] MEDS: NICOTINE 21 MG/24 HR PATCH T-DERMAL SCH (08:21)
[2016-07-22] MEDS: REMOVE OLD NICODERM (NICOTINE) PATCH TD SCH (08:21)
[2016-07-22] MEDS: ARIPiprazole 10 MG TAB PO SCH (08:21)
[2016-07-22] MEDS: LORazepam 0.5 MG TAB PO PRN ×2 (08:58→20:25)
[2016-07-22] MEDS: IBUPROFEN 800 MG TAB PO PRN ×2 (08:58→20:25)
--- NOTE | 2016-07-22 11:00 | HHI.PYPN ---
Subjective Remarks Patient was seen and discussed with the director of staff development. Patient claimed that he has been feeling better on the medication. No side effects were complained. He has been feeling somewhat depressed. We will adjust the medication. student services coordinator to assist in aftercare and discharge planning as patient does not wish to go to an assisted living facility. Patient denied any suicidal ideation intentions or plan. Review of Systems Except as stated in HPI: all other systems reviewed are Neg Psychiatric: COMPLAINS OF: Mood changes, Depression Objective Alert: Yes [place]: Person, Place, Situation Mood: Anxious, Depressed, Other (having nightmares) Affect: Labile Memory Intact: Recent (impaired) Hallucinations: Auditory (patient claims auditory hallucinations but he doesn' t seem to be may be manipulative to stay in the hospital) Delusions: Yes Delusion Type: Other (guarded) Suicidal: Ideation (patient denied any suicidal ideation or plan in the hospital) Homicidal: Ideation (patient denies any suicidal homicidal ideation or plan while he is in the hospital) Insight/Judgement Fair Labs Test 07/22/16 06:12 [place] Level 1.0 MEQ/L Vitals/IOs Vital Signs Date Time Temp Pulse Resp B/P Pulse Ox O2 Delivery O2 Flow Rate FiO2 07/22/16 05:56 96.9 70 18 108/57 100 Assessment & Plan Problem List: (1) Schizoaffective disorder, depressive type ICD Code: F25.1 (2) Cannabis abuse ICD Code: F12.10 Assessment & Plan Estimated LOS: days Justification for Cont. Inpt. Monitoring of the medication and risk of decompensation at a lower level of care Request HC Surrog/Guard Advoc?: No Renzo Black MD Jul 22, 2016 11:00
[2016-07-22 18:40] VITALS: BP 143/68; PULSE 73; RESP 18; TEMP 98.5; O2SAT 98
[2016-07-22] MEDS: diphenhydrAMINE HCL 50 MG CAP PO PRN (20:26)
[2016-07-22] MEDS: QUEtiapine FUMARATE 100 MG TAB PO SCH (20:26)
[2016-07-23 05:00] VITALS: BP 132/61; PULSE 63; RESP 18; TEMP 98.1; O2SAT 97
[2016-07-23] MEDS: LORazepam 0.5 MG TAB PO PRN ×2 (05:49→14:57)
[2016-07-23] MEDS: IBUPROFEN 800 MG TAB PO PRN ×2 (05:49→15:51)
[2016-07-23] MEDS: LITHIUM CARBONATE 300 MG TAB PO SCH ×3 (05:49→20:56)
[2016-07-23] MEDS: REMOVE OLD NICODERM (NICOTINE) PATCH TD SCH (09:00)
[2016-07-23] MEDS: ARIPiprazole 10 MG TAB PO SCH (09:21)
[2016-07-23] MEDS: DULoxetine HCl DR 30 MG CAP PO SCH ×2 (09:21→20:56)
[2016-07-23] MEDS: NICOTINE 21 MG/24 HR PATCH T-DERMAL SCH (09:22)
--- NOTE | 2016-07-23 10:24 | HHI.PYPN ---
Subjective Remarks Patient was seen and discussed with the staff forester. Patient reported that he has been feeling little bit better and wants to go back to his home willing to take the medication and follow-up as an outpatient. Denied any suicidal and/or homicidal ideation intentions or plan no behavior or management problem reported. He keeps to himself. No side effects were complained. Advised to continue with the same treatment probably discharge tomorrow we will ask social worker aide to assist Review of Systems Except as stated in HPI: all other systems reviewed are Neg Psychiatric: COMPLAINS OF: Mood changes, Depression Objective Alert: Yes [place]: Person, Place, Situation Mood: Anxious, Depressed Affect: Labile Memory Intact: Recent (impaired) Hallucinations: Auditory (patient denies any auditory or visual hallucination at this time) Delusions: Yes Delusion Type: Other (guarded) Suicidal: Ideation (patient denied any suicidal ideation or plan in the hospital) Homicidal: Ideation (patient denies any suicidal homicidal ideation or plan while he is in the hospital) Insight/Judgement Fair to limited Vitals/IOs Vital Signs Date Time Temp Pulse Resp B/P Pulse Ox O2 Delivery O2 Flow Rate FiO2 07/23/16 05:00 98.1 63 18 132/61 97 Assessment & Plan Problem List: (1) Schizoaffective disorder, depressive type ICD Code: F25.1 (2) Cannabis abuse ICD Code: F12.10 Assessment & Plan Estimated LOS: days Justification for Cont. Inpt. Monitoring of the medication and discharge planning Request HC Surrog/Guard Advoc?: No Renzo Black MD Jul 23, 2016 10:24
[2016-07-23 18:20] VITALS: BP 137/84; PULSE 79; RESP 17; TEMP 79.9; O2SAT 100
[2016-07-23] MEDS: QUEtiapine FUMARATE 100 MG TAB PO SCH (21:09)
[2016-07-23] MEDS: diphenhydrAMINE HCL 50 MG CAP PO PRN (21:09)
[2016-07-24] MEDS: LORazepam 0.5 MG TAB PO PRN ×2 (02:03→11:32)
[2016-07-24] MEDS: IBUPROFEN 800 MG TAB PO PRN ×2 (02:04→09:26)
[2016-07-24 05:07] VITALS: BP 116/75; PULSE 64; RESP 16; TEMP 97.6
[2016-07-24] MEDS: LITHIUM CARBONATE 300 MG TAB PO SCH ×2 (05:52→14:00)
[2016-07-24] MEDS: REMOVE OLD NICODERM (NICOTINE) PATCH TD SCH (09:00)
[2016-07-24] MEDS: ARIPiprazole 10 MG TAB PO SCH (09:19)
[2016-07-24] MEDS: DULoxetine HCl DR 30 MG CAP PO SCH (09:19)
[2016-07-24] MEDS: NICOTINE 21 MG/24 HR PATCH T-DERMAL SCH (09:20)
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
[2016-07-24] MEDS ORDERED: ARIP1TAB12 PO (10:30)
[2016-07-24] MEDS ORDERED: LITH300T3 PO (10:30)
[2016-07-24] MEDS ORDERED: DULO1CAP2 PO (10:30)
[2016-07-24] MEDS ORDERED: QUET1TAB8 PO (10:30)
== END 2016-07-24 14:38 | disposition home or self-care (01) | DRG 885 ==
LOC: NEPA 22:00 → NEDA 07-09 12:42 → H260 07-09 13:51
PROVIDERS: ADMIT Psychiatry & Neurology Psychiatry; ATTEND Psychiatry & Neurology Psychiatry
DX: F25.1 Schizoaffective disorder, depressive type (principal); R45.851 Suicidal ideations; R45.850 Homicidal ideations; F22 Delusional disorders; I10 Essential (primary) hypertension; B19.20 Unspecified viral hepatitis C without hepatic coma; F31.9 Bipolar disorder, unspecified; Z91.19 Patient's noncompliance with other medical treatment and regimen; F10.10 Alcohol abuse, uncomplicated; F12.10 Cannabis abuse, uncomplicated; Z72.0 Tobacco use
CPT/HCPCS: 80048; 80061; 80178; 80307; 80320; 83036; 99284; J2060; Q0163

== ENCOUNTER 2016-07-25 16:29 | Emergency (ER) | payer MEDICARE, MEDICAID ==
[~2016-07-25] VITALS: Ht 177.8 cm; Wt 87.0 kg
[~2016-07-25 16:29] MED LIST changes: +ARIP1TAB12 PO; +QUET1TAB8 PO
[2016-07-25 16:37] VITALS: BP 183/91; PULSE 95; RESP 18; TEMP 98.8; O2SAT 96
--- NOTE | 2016-07-25 16:42 | PD ---
HPI Chief Complaint: Psychiatric Symptoms Time Seen by Provider: 16:42 Travel History International Travel<30 days: No Contact w/Intl Traveler<30days: No Traveled to known affect area: No History of Present Illness HPI 40-year-old male presents to the emergency department under pitts act for psychiatric evaluation. Per the pitts act report the patient is expressing suicidal and homicidal ideations. The patient states that he is seeing people that are not there and hearing voices. States that there are people that put cameras in his house and have been spying on him. States that he hears voices from the TV telling him to shoot the people who are spying on him and then to shoot himself in the head. He denies any attempts to harm himself. Denies any ingestion of substances. Admits to drinking 1 shot of vodka last night. Admits to using marijuana occasionally. Denies any fever, chills, nausea, vomiting, chest pain, short of breath, abdominal pain. He does complain of feeling very anxious right now. No other complaints. PFSH Past Medical History Arthritis: No Asthma: No Autoimmune Disease: No Blood Disorders: No Anxiety: Yes Depression: Yes Heart Rhythm Problems: No High Cholesterol: No Chemotherapy: No Chest Pain: No Congestive Heart Failure: No COPD: No Cerebrovascular Accident: No Diminished Hearing: No Endocrine: No GERD: No Genitourinary: No Hiatal Hernia: No Herniated Disk: Yes (x 4) Hypertension: Yes Immune Disorder: No Kidney Stones: No Musculoskeletal: Yes (herniated disk) Neurologic: No Reproductive: No Respiratory: No Migraines: No Myocardial Infarction: No Radiation Therapy: No Renal Failure: No Schizophrenia: Yes Sickle Cell Disease: No Sleep Apnea: No Thyroid Disease: No Ulcer: No Past Surgical History Abdominal Surgery: No AICD: No Arteriovenous Shunt: No Cardiac Surgery: No Ear Surgery: No Endocrine Surgery: No Eye Surgery: No Genitourinary Surgery: No Gynecologic Surgery: No Insulin Pump: No Joint Replacement: No Oral Surgery: No Pacemaker: No Thoracic Surgery: No Other Surgery: No Social History Alcohol Use: Yes (occassionally ) Tobacco Use: Yes (1PPD ) Substance Use: Yes (MARIJUANA OCC) Allergies-Medications (Allergen,Severity, Reaction): Coded Allergies: Zoloft (Verified Allergy, Severe, Anaphylaxis, 07/25/16) Haldol (Verified Allergy, Mild, 07/25/16) Risperdal (Verified Allergy, Unknown, 07/25/16) Per CINTHIA Campa, [facility]. Reported Meds & Prescriptions Reported Meds & Active Scripts Active Quetiapine (Quetiapine Fumarate) 100 Mg Tab 300 Mg PO HS [address] (Duloxetine HCl) 30 Mg Capdr 30 Mg PO BID 14 Days Aripiprazole 10 Mg Tab 10 Mg PO DAILY 14 Days Peterson Carbonate 300 Mg Tab 300 Mg PO TID 5 Days Reported Lortab (Hydrocodone-Acetaminophen) 10-325 Mg Tab 1 Tab PO Q4H PRN Review of Systems Except as stated in HPI: all other systems reviewed are Neg Physical Exam Narrative GENERAL: Well-nourished and well-developed male patient in no acute distress. SKIN: Warm and dry. HEAD: Normocephalic and atraumatic. EYES: No injection, drainage, or hyphema noted. PERRLA. EOMI. ENT: No nasal drainage noted. Oropharynx is clear. NECK: Supple and the trachea is midline. CARDIOVASCULAR: Regular rate and rhythm. RESPIRATORY: Breath sounds are equal bilaterally with no accessory muscle use, wheezing, rhonchi, or crackles. GASTROINTESTINAL: Abdomen is soft, non-tender, and nondistended. MUSCULOSKELETAL: No obvious deformities, swelling, cyanosis, or ecchymosis is present throughout the upper and lower extremities. Patient has full range of motion without any signs of neurovascular compromise. NEUROLOGICAL: Awake, alert, and oriented. Normal speech and gait. Cranial nerves are grossly intact. Data Data Last Documented VS Vital Signs Date Time Temp Pulse Resp B/P Pulse Ox O2 Delivery O2 Flow Rate FiO2 07/25/16 16:37 98.8 95 18 183/91 96 Orders Complete Blood Count With Diff (07/25/16 16:41) Comprehensive Metabolic Panel (07/25/16 16:41) Drug Screen, Random Urine (07/25/16 16:41) Alcohol (Ethanol) (07/25/16 16:41) Salicylates (Aspirin) (07/25/16 16:41) Tylenol (Acetaminophen) (07/25/16 16:41) Psych Screen (07/25/16 16:41) Lorazepam (Ativan) (07/25/16 16:45) [place] (Li) (07/25/16 16:52) Iv Access Insert/Monitor (07/25/16 18:11) Sodium Chlor 0.9% 1000 Ml Inj (Ns 1000 M (07/25/16 18:11) Sodium Chloride 0.9% Flush (Ns Flush) (07/25/16 18:15) Sodium Chlor 0.9% 1000 Ml Inj (Ns 1000 M (07/25/16 18:11) Labs Laboratory Tests Test 07/25/16 16:46 White Blood Count 10.8 TH/MM3 Red Blood Count 5.57 MIL/MM3 Hemoglobin 16.1 GM/DL Hematocrit 46.9 % Mean Corpuscular Volume 84.2 FL Mean Corpuscular Hemoglobin 29.0 PG Mean Corpuscular Hemoglobin 34.4 % Concent Red Cell Distribution Width 13.6 % Platelet Count 242 TH/MM3 Mean Platelet Volume 9.2 FL Neutrophils (%) (Auto) 77.0 % Lymphocytes (%) (Auto) 9.8 % Monocytes (%) (Auto) 9.0 % Eosinophils (%) (Auto) 3.7 % Basophils (%) (Auto) 0.5 % Neutrophils # (Auto) 8.3 TH/MM3 Lymphocytes # (Auto) 1.1 TH/MM3 Monocytes # (Auto) 1.0 TH/MM3 Eosinophils # (Auto) 0.4 TH/MM3 Basophils # (Auto) 0.0 TH/MM3 CBC Comment DIFF FINAL Differential Comment Sodium Level 138 MEQ/L Potassium Level 3.9 MEQ/L Chloride Level 101 MEQ/L Carbon Dioxide Level 32.3 MEQ/L Anion Gap 5 MEQ/L Blood Urea Nitrogen 9 MG/DL Creatinine 1.33 MG/DL Estimat Glomerular Filtration 60 ML/MIN Rate Random Glucose 107 MG/DL Calcium Level 9.3 MG/DL Total Bilirubin 0.5 MG/DL Aspartate Amino Transf 24 U/L (AST/SGOT) Alanine Aminotransferase 60 U/L (ALT/SGPT) Alkaline Phosphatase 81 U/L Total Protein 7.5 GM/DL Albumin 4.4 GM/DL Salicylates Level LESS THAN 1.7 MG/DL Acetaminophen Level LESS THAN 2.0 MCG/ML Ethyl Alcohol Level LESS THAN 3 MG/DL MDM Medical Decision Making Medical Screen Exam Complete: Yes Emergency Medical Condition: Yes Differential Diagnosis Differential: Depression versus adjustment reaction versus anxiety versus PTSD versus psychosis NOS versus mood disorder NOS versus substance induced mood disorder versus ODD versus adjustment reaction versus schizophrenia versus bipolar disorder versus schizoaffective versus electrolyte abnormality Narrative Course Patient presents under a Pitts act. Physical examination and vital signs are essentially unremarkable. Patient has no medical complaints to report. Psych screen has been ordered. CBC is unremarkable. CMP does reveal some renal insufficiency with an elevated creatinine of 1.33, GFR 60. This is increased from the patient's baseline. He is given 2 L of IV fluid here in the emergency department. Salicylates is less than 1.7. Acetaminophen less than 2.0. EtOH less than 3. Patient has remained stable and without complaint here in the emergency department. He is medically clear for psychiatric evaluation and disposition. Diagnosis Primary Impression: Schizoaffective disorder, depressive type Additional Impression: Mild dehydration Gabby Quinonez Jul 25, 2016 16:42
[2016-07-25] MEDS ORDERED: LORazepam 1 MG TAB PO ONE (16:45)
[2016-07-25 17:29] LABS: AUTOMATED NEUTROPHIL # 8.3 TH/MM3 (1.8-7.7); BASOPHIL % 0.5 % (0.0-2.0); EOSINOPHIL # 0.4 TH/MM3 (0-0.4); EOSINOPHIL % 3.7 % (0.0-4.0); HEMATOCRIT 46.9 % (39.0-51.0); HEMO FLAGS DIFF FINAL; LYMPH % 9.8 % (9.0-44.0); LYMPHOCYTE # 1.1 TH/MM3 (1.0-4.8); MEAN CELL VOLUME 84.2 FL (80.0-100.0); MEAN CORPUSCULAR HGB CONC 34.4 % (32.0-36.0); PLATELET COUNT 242 TH/MM3 (150-450); RED BLOOD COUNT 5.57 MIL/MM3 (4.50-5.90); RED CELL DISTRIBUTION WIDTH 13.6 % (11.6-17.2); WHITE BLOOD COUNT 10.8 TH/MM3 (4.0-11.0)
[2016-07-25 17:40] LABS: ALT (GPT) 60 U/L (12-78); ANION GAP 5 MEQ/L (5-15); AST (GOT) 24 U/L (15-37); BICARBONATE 32.3 MEQ/L (21.0-32.0); BLOOD UREA NITROGEN 9 MG/DL (7-18); CHLORIDE 101 MEQ/L (98-107); GLOMERULAR FILTRATION RATE 60 ML/MIN (>89); POTASSIUM 3.9 MEQ/L (3.5-5.1); SODIUM (NA) 138 MEQ/L (136-145)
[2016-07-25 17:48] LABS: ALKALINE PHOSPHATASE 81 U/L (45-117); TOTAL BILIRUBIN ADULT 0.5 MG/DL (0.2-1.0)
[2016-07-25 17:52] LABS: ACETAMINOPHEN LESS THAN 2.0 MCG/ML (10.0-30.0)
[2016-07-25] MEDS ORDERED: SODIUM CHLOR 0.9% 1000 ML INJ 1,000 ML IV SCH ×2 (18:11)
[2016-07-25] MEDS ORDERED: SODIUM CHLORIDE 0.9% FLUSH 5 ML FLUSH IVF PRN (18:15)
[2016-07-25 19:38] LABS: AMPHETAMINE, URINE NEG (NEG); BARBITURATES, URINE NEG (NEG); COCAINE, URINE NEG (NEG)
[2016-07-25] MEDS ORDERED: ACETAMINOPHEN 500 MG CPLT PO ONE (20:30)
[2016-07-25 22:18] VITALS: BP 128/62; PULSE 85; RESP 18; TEMP 98.7; O2SAT 95
[2016-07-26 03:04] VITALS: BP 126/64; PULSE 90; RESP 17; O2SAT 98
[2016-07-26 06:19] VITALS: BP 117/60; PULSE 91; RESP 19; O2SAT 98
[2016-07-26 10:32] VITALS: BP 157/72; PULSE 91; RESP 18; O2SAT 99
--- NOTE | 2016-07-26 12:35 | PD ---
History of Present Illness Chief Complaint: Psychiatric Symptoms Time Seen by Provider: 11:50 Travel History International Travel<30 Days: No Contact w/Intl Traveler<30days: No Known affected area: No Legal Status Legal Status: Pitts Act Pitts Act Signed By: Betsy Sandy History of Present Illness: History of Present Illness 40-year-old male with history of schizoaffective disorder who presents to the emergency department under pitts act initiated by SANDOR. . Per the pitts act report the police were called to a hotel room in response to a suicidal person. The patient reported t police that he felt like he was going to have a seizure and that he was not feeling well. He went on to tell them that he believes that there were cameras in his home and that he was " going to blow those people away and that they deserve to ". He also reported that " he was going to kill himself and everyone else involved". He also reported that he felt like " his soul was about to be ripped from his body". The patient reported to ED staff that" he is seeing people that are not there and hearing voices States that he hears voices from the TV telling him to shoot the people who are spying on him and then to shoot himself in the head. He denies any attempts to harm himself ". His toxicology is negative for substances and his LI level is 0.6 meq. This patient has been monitored in J pod and he has not presented any behavioral concerns or any suicidality. [place] [facility] [place] E[place] reveals that he was discharged from the [facility] on Jul 24, 2015. He initially presented on a voluntary basis and was released after an evaluation. He then according to the record " went to the mall and spent the day there and then called the police and reported feeling suicidal and was placed under a BA". The patient is seen. He is asleep but awakens easily. He is alert and oriented. Speech is clear. He does not present significantly depressed although he states " I have been having bad suicidal depression and I feel that I will eventually will kill myself if I am discharged". He then goes on to present a list of reasons why he believes that he needs to be on the inpatient unit including feeling suicidal, believing that he saw a cat that was not a cat but an empty bottle, seeing shadows of people that are not there, hearing whispers that are frightening". He does not appear internally stimulated or distracted by these occurrences during our interview. He goes on to explain that his last hospitalization did not " fully stabilize me and I need further time to get my medications adjusted. He reports that he has blurred vision on the Seroquel and that when he take s the Abilify he feels like he is getting ready to " jump out of my skin". Brandi is clearly attempting by nay means possible to regain admission to IPU at this time. PFSH Past Medical History Arthritis: No Asthma: No Autoimmune Disease: No Blood Disorders: No Anxiety: Yes Depression: Yes Heart Rhythm Problems: No High Cholesterol: No Chemotherapy: No Chest Pain: No Congestive Heart Failure: No COPD: No Cerebrovascular Accident: No Diminished Hearing: No Endocrine: No GERD: No Genitourinary: No Hiatal Hernia: No Herniated Disk: Yes (x 4) Hypertension: Yes Immune Disorder: No Kidney Stones: No Musculoskeletal: Yes (herniated disk) Neurologic: No Reproductive: No Respiratory: No Migraines: No Myocardial Infarction: No Radiation Therapy: No Renal Failure: No Schizophrenia: Yes Sickle Cell Disease: No Sleep Apnea: No Thyroid Disease: No Ulcer: No Past Surgical History Abdominal Surgery: No AICD: No Arteriovenous Shunt: No Cardiac Surgery: No Ear Surgery: No Endocrine Surgery: No Eye Surgery: No Genitourinary Surgery: No Gynecologic Surgery: No Insulin Pump: No Joint Replacement: No Oral Surgery: No Pacemaker: No Thoracic Surgery: No Other Surgery: No Psychiatric History Psychiatric History Hx Psychiatric Treatment[place] [facility] [place] 24, [place]. History of Inpatient Treatment: Yes Guns or firearms in home: No Social History Single male with no children. Completed high school. He is on disability secondary to his vision impairment. Denies service and denies legal history. Hx Alcohol Use: Yes (occassionally ) Hx Tobacco Use: Yes (1PPD ) Hx Substance Use: Yes (MARIJUANA OCC) Substance Use Type: Crack, Marijuana, Cocaine Hx of Substance Use Treatment: No Family Psychiatric History None reported Allergies-Medications (Allergen,Severity, Reaction): Coded Allergies: Zoloft (Verified Allergy, Severe, Anaphylaxis, 07/25/16) Haldol (Verified Allergy, Mild, 07/25/16) Risperdal (Verified Allergy, Unknown, 07/25/16) Per CINTHIA Campa, [facility]. Reported Meds & Prescriptions Reported Meds & Active Scripts Active Quetiapine (Quetiapine Fumarate) 100 Mg Tab 300 Mg PO HS [address] (Duloxetine HCl) 30 Mg Capdr 30 Mg PO BID 14 Days Aripiprazole 10 Mg Tab 10 Mg PO DAILY 14 Days [place] Carbonate 300 Mg Tab 300 Mg PO TID 5 Days Reported Lortab (Hydrocodone-Acetaminophen) 10-325 Mg Tab 1 Tab PO Q4H PRN Review of Systems Except as stated in HPI: all other systems reviewed are Neg Psychiatric: COMPLAINS OF: Suicidal Ideation Exam Alert: Yes [place]: Person (ox4) Mood: Calm Affect: Euthymic Speech: Clear, Logical Eye Contact: Indirect Memory Intact: Comment (not impaired) Hallucinations: Auditory (reports hear a whisper) Delusions: Yes Delusion Type: Paranoid (reports that his house is bugged and wired) Suicidal: Ideation (reports he will eventually kill himself if he is discharged ) Homicidal: Ideation (reported on Ba) Insight/Judgement POor. Poor MDM Medical Decision Making Assessment/Plan 40 year old male with hx of schizoaffective disorder who was released from inpatient psychiatric unit on jul 24, 2016 who return on a BA for both suicidal and homicidal ideation.He presents multiple complains including that he believes that current prescribed medications are not helping him. Out of abundance of caution he will be maintained here in J pod until a bed becomes available at [facility]. He is insisting that we sent him to [place] but he has no insurance so he does not qualify for admission. Orders Complete Blood Count With Diff (07/25/16 16:41) Comprehensive Metabolic Panel (07/25/16 16:41) Drug Screen, Random Urine (07/25/16 16:41) Alcohol (Ethanol) (07/25/16 16:41) Salicylates (Aspirin) (07/25/16 16:41) Tylenol (Acetaminophen) (07/25/16 16:41) Psych Screen (07/25/16 16:41) Lorazepam (Ativan) (07/25/16 16:45) [place] (Li) (07/25/16 16:52) Iv Access Insert/Monitor (07/25/16 18:11) Sodium Chlor 0.9% 1000 Ml Inj (Ns 1000 M (07/25/16 18:11) Sodium Chloride 0.9% Flush (Ns Flush) (07/25/16 18:15) Sodium Chlor 0.9% 1000 Ml Inj (Ns 1000 M (07/25/16 18:11) Acetaminophen (Tylenol) (07/25/16 20:30) Diet Regular Basic (07/26/16 Breakfast) Diet Regular Basic (07/26/16 Lunch) Results Vital Signs Date Time Temp Pulse Resp B/P Pulse Ox O2 Delivery O2 Flow Rate FiO2 07/26/16 10:32 91 18 157/72 99 07/26/16 06:19 91 19 117/60 98 Room Air 07/26/16 03:04 90 17 126/64 98 07/25/16 22:18 98.7 85 18 128/62 95 Room Air 07/25/16 21:47 16 07/25/16 16:37 98.8 95 18 183/91 96 Laboratory Tests Test 07/25/16 07/25/16 07/25/16 16:46 17:06 19:24 White Blood Count 10.8 Red Blood Count 5.57 Hemoglobin 16.1 Hematocrit 46.9 Mean Corpuscular Volume 84.2 Mean Corpuscular Hemoglobin 29.0 Mean Corpuscular Hemoglobin 34.4 Concent Red Cell Distribution Width 13.6 Platelet Count 242 Mean Platelet Volume 9.2 Neutrophils (%) (Auto) 77.0 Lymphocytes (%) (Auto) 9.8 Monocytes (%) (Auto) 9.0 Eosinophils (%) (Auto) 3.7 Basophils (%) (Auto) 0.5 Neutrophils # (Auto) 8.3 Lymphocytes # (Auto) 1.1 Monocytes # (Auto) 1.0 Eosinophils # (Auto) 0.4 Basophils # (Auto) 0.0 CBC Comment DIFF FINAL Differential Comment Sodium Level 138 Potassium Level 3.9 Chloride Level 101 Carbon Dioxide Level 32.3 Anion Gap 5 Blood Urea Nitrogen 9 Creatinine 1.33 Estimat Glomerular Filtration 60 Rate Random Glucose 107 Calcium Level 9.3 Total Bilirubin 0.5 Aspartate Amino Transf 24 (AST/SGOT) Alanine Aminotransferase 60 (ALT/SGPT) Alkaline Phosphatase 81 Total Protein 7.5 Albumin 4.4 Salicylates Level LESS THAN 1.7 Acetaminophen Level LESS THAN 2.0 Ethyl Alcohol Level LESS THAN 3 [place] Level 0.6 Urine Opiates Screen NEG Urine Barbiturates Screen NEG Urine Amphetamines Screen NEG Urine Benzodiazepines Screen NEG Urine Cocaine Screen NEG Urine Cannabinoids Screen NEG Diagnosis Primary Impression: Schizoaffective disorder, depressive type Additional Impression: Mild dehydration Problem Qualifiers Arianna Barksdale Jul 26, 2016 12:35
[2016-07-26 15:05] VITALS: BP 147/72; PULSE 74; RESP 18
[2016-07-26] MEDS ORDERED: LITHIUM CARBONATE 300 MG TAB PO SCH (18:00)
[2016-07-26] MEDS ORDERED: DULoxetine HCl DR 30 MG CAP PO SCH (21:00)
[2016-07-26 22:30] VITALS: BP 145/77; PULSE 65; RESP 18; TEMP 97.5; O2SAT 96
[2016-07-27 02:19] VITALS: BP 129/69; PULSE 63; RESP 18; TEMP 97.3; O2SAT 99
[2016-07-27] MEDS ORDERED: ARIPiprazole 10 MG TAB PO SCH (09:00)
== END 2016-07-27 02:21 ==
LOC: NEPE 16:29 → NEPJ 07-27 02:21
DX: F25.1 Schizoaffective disorder, depressive type (principal); E86.0 Dehydration
CPT/HCPCS: 80053; 80178; 80307; 80320; 85025; 96360; 96361; 99283; J7030; 80329; G0480

== ENCOUNTER 2016-08-14 14:35 | Inpatient (IN) | payer OTHER, MEDICARE, MEDICAID ==
[~2016-08-14] VITALS: Ht 177.8 cm; Wt 83.4 kg
[~2016-08-14 14:35] MED LIST changes: -CYMB30CA PO; -LITH300C2 PO; -SERO100T PO
[2016-08-14 15:07] VITALS: BP 132/75; PULSE 70; RESP 18; TEMP 98.9; O2SAT 99
[2016-08-14] MEDS ORDERED: ALUMINUM/MAGNESIUM/SIMETH 30 ML CUP PO PRN (15:30)
[2016-08-14] MEDS ORDERED: MAGNESIUM HYDROXIDE SUSP 30 ML CUP PO PRN (15:30)
--- NOTE | 2016-08-14 15:32 | HHI.HP ---
Provisional Diagnosis Admission Date Aug 14, 2016 at 14:35 Ione I. Schizoaffective disorder bipolar type F 25.0, rule out substance-induced mood disorder f19.94 Certification of Person's Competence To Provide Express and Informed Consent I have personally examined Darius Livingston , a person being served at [facility] on, Aug 14, 2016 15:21. Express and informed consent means consent voluntarily given in writing, by a competent person, after sufficient explanation and disclosure of the subject matter involved to enable the person to make a knowing and willful decision without any element of force, fraud, deceit, duress, or other form of constraint or coercion. This person is 18 years of age or older, is not now known to be incompetent to consent to treatment with a guardian advocate, and does not have a health care surrogate or proxy currently making medical treatment decisions. I have found this person to be one of the following: []x Competent to provide express and informed consent, as defined above, for voluntary admission to this facility and is competent to provide express and informed consent for treatment. He/she has the consistent capacity to make well reasoned, willful, and knowing decisions concerning his or her medical or mental health treatment. The person fully and consistently understands the purpose of the admission for examination/placement and is fully capable of personally exercising all rights assured [place] [] Incompetent to provide express and informed consent to voluntary admission, and this is incompetent to provide express and informed consent to treatment. The person must be transferred to involuntary status and a petition for a guardian advocate filed with the Circuit Court. [] Refusing to provide express and informed consent to voluntary admission but is competent to provide express and informed consent for treatment. The person must be discharged or transferred to involuntary status. Form shall be completed within 24 hours of a person's arrival at the receiving facility and filed in the clinical record of each person: 1. Admitted on a voluntary basis 2. Permitted to provide express and informed consent to his/her own treatment 3. Allowed to transfer from involuntary to voluntary status 4. Prior to permitting a person to consent to his or her own treatment after having been previously found incompetent to consent to treatment. History of Present Illness Capacity: Has Capacity HPI Patient is a 40-year-old white male well known to us from multiple prior contacts. In fact this is patient's ninth mental health visit to [facility] since mid September 2015. He comes here under Pitts act from [facility] signed by a Matty COULTER stating see report from psych. Patient is seen screen at that facility urine toxicology positive for cocaine and marijuana. It appears she initially went there because he stated he was on his medications for one to 2 weeks. And feeling somewhat out of control. He did make vague suicidal statements at bedtime thus the [employer] act and transported here once he was medically cleared. At the present time patient sitting quietly in his room patient did recognize me from prior contact with him many years ago at [facility]. He states he is living up in [facility] at this time he ran out of his medications. He is a client at [facility] at the outpatient facility. Says she's been compliant with them. Though he does frequently use marijuana in the community. He stated the cocaine was at one time "hip" because he wanted to calm down not began his medication. At this time he does denies suicidality homicidality voices or visions. Patient does wish to get back on his medications. We did discuss options with him. He does feel somewhat insecure leaving the unit at this time he would like to get restarted on his medications in this environment and be discharged tomorrow. I agreed to that. Thus we'll son is medications as per the med reconciliation form [facility] and I am discharging tomorrow with prescriptions for him to fill in [facility] to follow-up with [facility] outpatient also make recommendation for follow-up AA/NA and follow- up voluntary says Mr. Tan substance abuse assessment Review of Systems Except as stated in HPI: all other systems reviewed are Neg Past Psych History Psychological trauma history Denies Violence risk - others (6 mos) Low Violence risk - self (6 mos) Low Substance Abuse History Drugs/Alcohol past 12 months Patient vague about alcohol use in this frequent marijuana use and intermittent cocaine use Past Family Social History Coded Allergies: Zoloft (Verified Allergy, Severe, Anaphylaxis, 07/25/16) Haldol (Verified Allergy, Mild, 07/25/16) Risperdal (Verified Allergy, Unknown, 07/25/16) Per CINTHIA Campa, [facility]. Past Medical History Patient has significant visual disabilities Active Scripts Quetiapine 100 Mg [id number] Mg PO HS 14 Days Ref 1 Prov:Renzo Black MD 07/24/[address] 30 Mg Capdr30 Mg PO BID 14 Days Ref 1 Prov:Renzo Black MD 07/24/16 Aripiprazole 10 Mg Tab10 Mg PO DAILY 14 Days Ref 1 Prov:Renzo Black MD 07/24/16 [place] Carbonate 300 Mg [id number] Mg PO TID 5 Days Ref 5 Prov:Wood Jiménez MD 06/12/16 Reported Medications Hydrocodone-Acetaminophen (Lortab)10-325 Mg Tab1 Tab PO Q4H PRN (PAIN) Ref 0 07/06/16 Current Medications Medications (Trade) Dose Ordered Sig/Carleen Route Start Time Stop Time Status Last Admin (Abilify) 10 mg DAILY PO 08/14/16 15:00 UNV (Cymbalta Dr) 30 mg BID PO 08/14/16 21:00 UNV (Lithotabs) 300 mg TID PO 08/14/16 18:00 UNV (SEROquel) 300 mg HS PO 08/14/16 21:00 UNV (Benadryl) 50 mg HS PRN PO 08/14/16 15:30 UNV (Tylenol) 650 mg Q4H PRN PO 08/14/16 15:30 UNV (Milk Of Magnesia Liq) 30 ml DAILY PRN PO 08/14/16 15:30 UNV (Mag-Al Plus Susp Liq) 30 ml Q6H PRN PO 08/14/16 15:30 UNV (Atarax) 50 mg Q6H PRN PO 08/14/16 15:30 UNV Family History Unknown at this time Social History Patient single lives by himself and [facility] Patient's Strengths (min. 2) Patient verbally able to access healthcare Physical Exam Patient seen screened for hospital [facility] exam reviewed and agreed with vital signs blood pressure 132/75 pulse 70 respirations 18 Vital Signs Vital Signs Date Time Temp Pulse Resp B/P Pulse Ox O2 Delivery O2 Flow Rate FiO2 08/14/16 15:07 98.9 70 18 132/75 99 Mental Status Examination Alert oriented somewhat disheveled white male visual limitations noted has thick currently orangey blond hair guarded but cooperative patient seen with nurse Carpio and medical student Karen Appearance Disheveled Speech: Rapid Orientation: x3 Memory: Unremarkable Thought Process: Logical, Linear Thought Content: Unremarkable Hallucination Type: None Attention and Concentration: Other (fair) Suicidal Ideation: No Previous Suicide Attempts: No Homicidal Ideation: No Previous Homicide Attempts: No Insight: Poor Judgement: Poor Affect: Euthymic, Irritable (slightly) Mood: Euthymic (to mildly labile) Motor Activity: Normal gait Assessment & Plan Problem List: (1) Schizoaffective disorder, bipolar type ICD Code: F25.0 (2) Drug-induced mood disorder ICD Code: F19.94 Assessment & Plan Estimated LOS: days patient to be restarted on his medications continue admission overnight patient to be discharged tomorrow with Rx is 1 month to follow-up outpatient [facility] Tan act also make referral to Zack Tan for voluntary assessment sinus abuse history, and referral to AA/NA Discharge Planning See above Request HC Surrog/Guard Advoc?: No Trevon Donald MD Aug 14, 2016 15:32
[2016-08-14] MEDS: LITHIUM CARBONATE 300 MG TAB PO SCH (17:31)
[2016-08-14] MEDS: hydrOXYzine HCL 50 MG TAB PO PRN (17:33)
[2016-08-14 18:48] VITALS: BP 137/70; PULSE 70; RESP 18; TEMP 97.8; O2SAT 96
[2016-08-14] MEDS: QUEtiapine FUMARATE 300 MG TAB PO SCH (20:57)
[2016-08-14] MEDS: DULoxetine HCl DR 30 MG CAP PO SCH (20:57)
[2016-08-14] MEDS ORDERED: diphenhydrAMINE HCL 50 MG CAP PO PRN (21:00)
[2016-08-15 05:54] VITALS: BP 113/60; PULSE 70; RESP 16; TEMP 96.5; O2SAT 98
[2016-08-15] MEDS: REMOVE OLD PATCH T-DERMAL SCH (09:00)
[2016-08-15] MEDS: LITHIUM CARBONATE 300 MG TAB PO SCH ×3 (09:58→17:20)
[2016-08-15] MEDS: NICOTINE 14 MG/24 HR PATCH T-DERMAL SCH (09:59)
[2016-08-15] MEDS: ARIPiprazole 10 MG TAB PO SCH (09:59)
[2016-08-15] MEDS: DULoxetine HCl DR 30 MG CAP PO SCH ×2 (09:59→20:47)
[2016-08-15] MEDS: hydrOXYzine HCL 50 MG TAB PO PRN ×2 (12:11→17:20)
--- NOTE | 2016-08-15 15:35 | HHI.PYPN ---
Subjective Remarks Pt seen and discussed with staff. Pt reports that he is tolerating medications without side effects. He reports mood is better today and less agitated. SI thoughts have decreased. He has been pacing the halls but has not been aggressive. No HI. Objective Alert: Yes [place]: Person, Place, Date, Situation Mood: Calm, Depressed Affect: Restricted Memory Intact: Immediate, Recent, Remote Hallucinations: Other (none) Delusions: No Delusion Type: Other (none) Suicidal: Plan (denies), Ideation (decreased) Homicidal: Ideation (none) Insight/Judgement limited Vitals/IOs Vital Signs Date Time Temp Pulse Resp B/P Pulse Ox O2 Delivery O2 Flow Rate FiO2 08/15/16 05:54 96.5 70 16 113/60 98 Intake and Output 08/14/16 08/14/16 08/15/16 08:00 16:00 00:00 Intake Total 480 ml Balance 480 ml Assessment & Plan Problem List: (1) Schizoaffective disorder, bipolar type ICD Code: F25.0 (2) Drug-induced mood disorder ICD Code: F19.94 Assessment & Plan Continue current tx plan. Estimated LOS: days Justification for Cont. Inpt. monitoring for impairments in safety Request HC Surrog/Guard Advoc?: No Jyotsna Bryan MD Aug 15, 2016 15:34
[2016-08-15] MEDS: ACETAMINOPHEN 325 MG TAB PO PRN (17:21)
[2016-08-15 18:48] VITALS: BP 132/72; PULSE 74; RESP 17; TEMP 98.6; O2SAT 98
[2016-08-15] MEDS: QUEtiapine FUMARATE 300 MG TAB PO SCH (20:47)
[2016-08-16 05:30] VITALS: BP 114/65; PULSE 72; RESP 17; TEMP 97.8; O2SAT 97
[2016-08-16] MEDS: NICOTINE 14 MG/24 HR PATCH T-DERMAL SCH (08:50)
[2016-08-16] MEDS: DULoxetine HCl DR 30 MG CAP PO SCH ×2 (08:50→20:33)
[2016-08-16] MEDS: LITHIUM CARBONATE 300 MG TAB PO SCH ×3 (08:50→17:45)
[2016-08-16] MEDS: ARIPiprazole 10 MG TAB PO SCH (08:50)
[2016-08-16] MEDS: REMOVE OLD PATCH T-DERMAL SCH (08:50)
[2016-08-16] MEDS: hydrOXYzine HCL 50 MG TAB PO PRN ×2 (09:03→15:47)
[2016-08-16] MEDS: ACETAMINOPHEN 325 MG TAB PO PRN (15:47)
--- NOTE | 2016-08-16 16:17 | HHI.PYPN ---
Subjective Remarks Pt seen and discussed with staff. Pt reports mood is improved and states that he has not had AH today. He denies SI today. No medication side effects. No agitation or behavioral problems. Objective Alert: Yes [place]: Person, Place, Date, Situation Mood: Calm Affect: Euthymic Memory Intact: Immediate, Recent, Remote Hallucinations: Other (none) Delusions: No Delusion Type: Other (none) Suicidal: Plan (denies), Ideation (decreased) Homicidal: Ideation (none) Insight/Judgement limited Labs Test 08/16/16 06:04 Green Level Level 0.4 MEQ/L Vitals/IOs Vital Signs Date Time Temp Pulse Resp B/P Pulse Ox O2 Delivery O2 Flow Rate FiO2 08/16/16 05:30 97.8 72 17 114/65 97 Assessment & Plan Problem List: (1) Schizoaffective disorder, bipolar type ICD Code: F25.0 (2) Drug-induced mood disorder ICD Code: F19.94 Assessment & Plan Pt improving. Continue current tx plan. Estimated LOS: days Justification for Cont. Inpt. risk of decompensation. Request HC Surrog/Guard Advoc?: Jyotsna Carpenter MD Aug 16, 2016 16:17
[2016-08-16 18:27] VITALS: BP 133/67; PULSE 74; RESP 16; TEMP 98.5; O2SAT 99
[2016-08-16] MEDS: QUEtiapine FUMARATE 300 MG TAB PO SCH (20:33)
[2016-08-17 05:01] VITALS: BP 116/61; PULSE 60; RESP 18; TEMP 97.8; O2SAT 98
[2016-08-17] MEDS: LITHIUM CARBONATE 300 MG TAB PO SCH ×2 (08:36→13:00)
[2016-08-17] MEDS: ARIPiprazole 10 MG TAB PO SCH (08:36)
[2016-08-17] MEDS: DULoxetine HCl DR 30 MG CAP PO SCH (08:36)
[2016-08-17] MEDS: hydrOXYzine HCL 50 MG TAB PO PRN (08:38)
[2016-08-17] MEDS: ACETAMINOPHEN 325 MG TAB PO PRN (08:38)
[2016-08-17] MEDS: NICOTINE 14 MG/24 HR PATCH T-DERMAL SCH (09:00)
[2016-08-17] MEDS: REMOVE OLD PATCH T-DERMAL SCH (09:00)
[2016-08-17] MEDS ORDERED: QUET1TAB10 PO (13:25)
[2016-08-17] MEDS ORDERED: ARIP1TAB12 PO (13:25)
[2016-08-17] MEDS ORDERED: DULO1CAP2 PO (13:25)
[2016-08-17] MEDS ORDERED: LITH300T3 PO (13:25)
--- NOTE | 2016-08-17 13:33 | HHI.DS ---
Psychiatry Discharge Summary Inpatient Psychiatric care?: Yes Advance Directive: No Reason Not Provided: Due to Patient Condition Mental Health AdvanceDirective: No Health Care Proxy: No Admission Admission Date Aug 14, 2016 at 14:35 Admission Diagnosis: (1) Schizoaffective disorder, bipolar type ICD Code: F25.0 (2) Cannabis abuse ICD Code: F12.10 Brief History Patient is a 40-year-old white male well known to us from multiple prior contacts. In fact this is patient's ninth mental health visit to [facility] since mid September 2015. He comes here under [employer] act from [facility] signed by a Matty Mccloud PAC stating see report from psych. Patient is seen screen at that facility urine toxicology positive for cocaine and marijuana. It appears she initially went there because he stated he was on his medications for one to 2 weeks. And feeling somewhat out of control. He did make vague suicidal statements at bedtime thus the [employer] act and transported here once he was medically cleared. At the present time patient sitting quietly in his room patient did recognize me from prior contact with him many years ago at [facility]. He states he is living up in [facility] at this time he ran out of his medications. He is a client at [facility] at the outpatient facility. Says she's been compliant with them. Though he does frequently use marijuana in the community. He stated the cocaine was at one time "hip" because he wanted to calm down not began his medication. At this time he does denies suicidality homicidality voices or visions. Patient does wish to get back on his medications. We did discuss options with him. He does feel somewhat insecure leaving the unit at this time he would like to get restarted on his medications in this environment and be discharged tomorrow. I agreed to that. Thus we'll son is medications as [facility] and I am discharging tomorrow with prescriptions for him to fill in [facility] to follow-up with [facility] outpatient also make recommendation for follow-up AA/NA and follow- up voluntary says Mr. Tan substance abuse assessment Tobacco Use In Past 30 Days: 5 or More Cigarettes/Day Alcohol Use: Monthly or Less Hospital Course Patient seen in the hospital was uneventful show compliance with his medications from admission. I did need to monitor the lithium levels to assure that it was within therapeutic range. What Cheer level drawn on 08/16 came back at 0.4. Patient seen with treatment team today states he had a good weekend denies suicidality homicidality voices or visions does wish to be discharged states he would like [facility] to fill month supply medication to make some remains compliant with it and has a supply until his appointment with [facility]. We will do that. We also gave strong recommendations and admonition for complete sobriety. 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 Patient reassured us that he does not have that intent though there is some skepticism on our part is to his ability to maintain this. In any event at the present time he no longer meets criteria for inpatient psychiatric hospitalization thus will discharged today referred to his home, Rx 1 month with supply of medication given a follow-up [facility] outpatient Results Blood Pressure 116 / 61 Vital Signs Date Time Temp Pulse Resp B/P Pulse Ox O2 Delivery O2 Flow Rate FiO2 08/17/16 05:01 97.8 60 18 116/61 98 Laboratory Tests Test 08/16/16 06:04 What Cheer Level 0.4 MEQ/L (0.5-1.5) Laboratory Results Test 08/16/16 06:04 What Cheer Level 0.4 MEQ/L (0.5-1.5) Summary of Procedures None done Pending results at discharge: No Medications # of Antipsychotic meds at D/C: 2 Appropriate >1 Antipsych meds?: 1 Approp Antipsych med options 1 - Minimum of three failed multiple trials of monotherapy. 2 - Documented plan to taper to monotherapy due to previous use of multiple meds OR cross-taper in progress at D/C. 3 - Documentation of augmentation of Clozapine. 4 - Justification other than those listed in allowable values 1-3, document here : Discharge Discharge Date: Aug 17, 2016 Discharge Diagnosis: (1) Schizoaffective disorder, bipolar type Diagnosis: Principal ICD Code: F25.0 (2) Cannabis abuse Diagnosis: Secondary ICD Code: F12.10 Mental Status Exam at Disch Alert oriented white male sitting calmly with us in treatment team he is normal active, mood is euthymic affect showed good range intensity, speech rate and rhythm are within normal limits though no formal thought disorders, daughter to visual hallucinations, no delusions, insight and judgment is poor to fair cognition grossly intact Pt Condition on Discharge: Stable Discharge Disposition: Discharge Home Discharge Instructions Diet Instructions: As Tolerated, No Restrictions Activities you can perform: Regular-No Restrictions Scheduled Appointment: Zack Tan Shahla Appointment Date: Aug 20, 2016 Appointment Time: 7:30am Discharge Time > 30 minutes Discharge/Advance Care Plan Health Problems: (1) Schizoaffective disorder, bipolar type (2) Drug-induced mood disorder Goals to promote your health * To prevent worsening of your condition and complications * To maintain your health at the optimal level Directions to meet your goals Take your medications as prescribed Follow your dietary instruction Follow activity as directed Keep your appointments as scheduled Take your immunizations and boosters as scheduled If your symptoms worsen call your PCP, if no PCP go to Urgent Care Center or Emergency Room For 18/01 questions related to your inpatient stay or results of tests pending at discharge, please contact Dr. Trevon Donald at Smoking is Dangerous to Your Health. Avoid second hand smoking Trevon Donald MD Aug 17, 2016 13:32
== END 2016-08-17 16:10 | disposition home or self-care (01) | DRG 885 ==
LOC: H260 14:35
PROVIDERS: ADMIT Psychiatry & Neurology Psychiatry; ATTEND Psychiatry & Neurology Psychiatry
DX: F25.0 Schizoaffective disorder, bipolar type (principal); F19.94 Other psychoactive substance use, unspecified with psychoactive substance-induced mood disorder; Z88.8 Allergy status to other drugs, medicaments and biological substances; F12.10 Cannabis abuse, uncomplicated; Z72.0 Tobacco use
CPT/HCPCS: 80178

== ENCOUNTER 2016-09-30 18:24 | Emergency (ER) | payer MEDICAID, MEDICARE, OTHER ==
[~2016-09-30] VITALS: Ht 177.8 cm; Wt 86.0 kg
[~2016-09-30 18:24] MED LIST changes: +QUET1TAB10 PO
[2016-09-30 18:38] VITALS: BP 119/56; PULSE 66; RESP 16; TEMP 98.8; O2SAT 96
[2016-09-30 20:04] VITALS: BP 120/59; PULSE 64; RESP 16; O2SAT 95
--- NOTE | 2016-09-30 20:14 | PD ---
HPI Chief Complaint: Anxiety Time Seen by Provider: 20:14 Travel History International Travel<30 days: No Contact w/Intl Traveler<30days: No Traveled to known affect area: No History of Present Illness HPI 40-year-old male with history of anxiety and polysubstance abuse presents to the emergency department for psychiatric evaluation. Patient states that he also has a seizure disorder but does not take any medication for this. He states his last seizure has not been for 2 years but feels as though he may be going to have one. Denies a recent head trauma. No focal deficits or weakness. Reports intermittent suicidal thoughts. No active plan. No other symptoms to report this time. PFSH Past Medical History Arthritis: No Asthma: No Autoimmune Disease: No Blood Disorders: No Anxiety: Yes Depression: Yes Heart Rhythm Problems: No Cancer: No Cardiovascular Problems: No High Cholesterol: No Chemotherapy: No Chest Pain: No Congestive Heart Failure: No COPD: No Cerebrovascular Accident: No Diminished Hearing: No Endocrine: No GERD: No Genitourinary: No Headaches: No Hiatal Hernia: No Herniated Disk: Yes (x 4) Hypertension: Yes Immune Disorder: No Kidney Stones: No Musculoskeletal: No Neurologic: No Psychiatric: Yes (Hx of treatment for depression) Reproductive: No Respiratory: No Migraines: No Myocardial Infarction: No Radiation Therapy: No Renal Failure: No Schizophrenia: Yes Sickle Cell Disease: No Sleep Apnea: No Thyroid Disease: No Ulcer: No Past Surgical History Abdominal Surgery: No AICD: No Arteriovenous Shunt: No Cardiac Surgery: No Ear Surgery: No Endocrine Surgery: No Eye Surgery: No Genitourinary Surgery: No Gynecologic Surgery: No Insulin Pump: No Joint Replacement: No Oral Surgery: No Pacemaker: No Thoracic Surgery: No Other Surgery: No Social History Alcohol Use: Yes (occassionally ) Tobacco Use: Yes (1PPD ) Substance Use: Yes Allergies-Medications (Allergen,Severity, Reaction): Coded Allergies: Zoloft (Verified Allergy, Severe, Anaphylaxis, 09/30/16) Haldol (Verified Allergy, Mild, 09/30/16) Risperdal (Verified Allergy, Unknown, 09/30/16) Per CINTHIA Campa, SMA. Reported Meds & Prescriptions Reported Meds & Active Scripts Active Quetiapine (Quetiapine Fumarate) 300 Mg Tab 300 Mg PO HS [place] Carbonate 300 Mg Tab 300 Mg PO TID Duloxetine DR (Duloxetine HCl) 30 Mg Capdr 30 Mg PO BID Aripiprazole 10 Mg Tab 10 Mg PO DAILY Quetiapine (Quetiapine Fumarate) 100 Mg Tab 300 Mg PO HS [address] (Duloxetine HCl) 30 Mg Capdr 30 Mg PO BID 14 Days Aripiprazole 10 Mg Tab 10 Mg PO DAILY 14 Days [place] Carbonate 300 Mg Tab 300 Mg PO TID 5 Days Reported Lortab (Hydrocodone-Acetaminophen) 10-325 Mg Tab 1 Tab PO Q4H PRN Review of Systems Except as stated in HPI: all other systems reviewed are Neg Physical Exam Narrative GENERAL: Unkempt male patient, in no acute distress SKIN: Focused skin assessment warm/dry. HEAD: Normocephalic. Atraumatic EYES: No scleral icterus. No injection or drainage. NECK: Supple, trachea midline. No JVD or lymphadenopathy. CARDIOVASCULAR: Regular rate and rhythm without murmurs, gallops, or rubs. RESPIRATORY: Breath sounds equal bilaterally. No accessory muscle use. GASTROINTESTINAL: Abdomen soft, non-tender, nondistended. MUSCULOSKELETAL: No cyanosis, or edema. BACK: Nontender without obvious deformity. No CVA tenderness. Data Data Last Documented VS Vital Signs Date Time Temp Pulse Resp B/P Pulse Ox O2 Delivery O2 Flow Rate FiO2 09/30/16 20:04 64 16 120/59 95 Room Air 09/30/16 18:38 98.8 Orders Complete Blood Count With Diff (09/30/16 20:23) Basic Metabolic Panel (Bmp) (09/30/16 20:23) Psych Screen (09/30/16 20:23) Drug Screen, Random Urine (09/30/16 20:23) Alcohol (Ethanol) (09/30/16 20:23) Labs Laboratory Tests Test 09/30/16 21:40 White Blood Count 5.3 TH/MM3 Red Blood Count 5.07 MIL/MM3 Hemoglobin 14.5 GM/DL Hematocrit 42.0 % Mean Corpuscular Volume 82.8 FL Mean Corpuscular Hemoglobin 28.6 PG Mean Corpuscular Hemoglobin 34.5 % Concent Red Cell Distribution Width 14.0 % Platelet Count 202 TH/MM3 Mean Platelet Volume 9.2 FL Neutrophils (%) (Auto) 59.6 % Lymphocytes (%) (Auto) 19.1 % Monocytes (%) (Auto) 14.9 % Eosinophils (%) (Auto) 5.6 % Basophils (%) (Auto) 0.8 % Neutrophils # (Auto) 3.2 TH/MM3 Lymphocytes # (Auto) 1.0 TH/MM3 Monocytes # (Auto) 0.8 TH/MM3 Eosinophils # (Auto) 0.3 TH/MM3 Basophils # (Auto) 0.0 TH/MM3 CBC Comment DIFF FINAL Differential Comment Sodium Level 140 MEQ/L Potassium Level 4.0 MEQ/L Chloride Level 104 MEQ/L Carbon Dioxide Level 31.7 MEQ/L Anion Gap 4 MEQ/L Blood Urea Nitrogen 14 MG/DL Creatinine 0.84 MG/DL Estimat Glomerular Filtration 102 ML/MIN Rate Random Glucose 93 MG/DL Calcium Level 8.5 MG/DL Urine Opiates Screen NEG Urine Barbiturates Screen NEG Urine Amphetamines Screen NEG Urine Benzodiazepines Screen POS Urine Cocaine Screen POS Urine Cannabinoids Screen POS Ethyl Alcohol Level LESS THAN 3 MG/DL MDM Medical Decision Making Medical Screen Exam Complete: Yes Emergency Medical Condition: Yes Medical Record Reviewed: Yes Differential Diagnosis Substance abuse versus mood disorder versus personality disorder versus adjustment reaction disorder Narrative Course 40-year-old male presents to emergency department voluntarily for psychiatric evaluation. Patient appears without distress. He is restful in the stretcher. Reports polysubstance abuse and history of anxiety. Vital signs are stable. CBC and BMP are without acute concern. Toxicologies positive for benzodiazepines, cocaine, cannabinoids. Alcohol is less than 3. Patient is medically cleared for psychiatric screening for further evaluation and disposition. Mental health screening discussed with the patient. Psychiatric screen ordered. Diagnosis Primary Impression: Drug-induced mood disorder Condition: Stable Nina Stephenson Sep 30, 2016 20:14
[2016-09-30 22:00] LABS: AUTOMATED NEUTROPHIL # 3.2 TH/MM3 (1.8-7.7); BASOPHIL % 0.8 % (0.0-2.0); EOSINOPHIL # 0.3 TH/MM3 (0-0.4); EOSINOPHIL % 5.6 % (0.0-4.0); HEMO FLAGS DIFF FINAL; LYMPH % 19.1 % (9.0-44.0); MEAN CELL VOLUME 82.8 FL (80.0-100.0); MEAN CORPUSCULAR HEMOGLOBIN 28.6 PG (27.0-34.0); MEAN CORPUSCULAR HGB CONC 34.5 % (32.0-36.0); MONO % 14.9 % (0.0-8.0); NEUT % 59.6 % (16.0-70.0); PLATELET COUNT 202 TH/MM3 (150-450); RED BLOOD COUNT 5.07 MIL/MM3 (4.50-5.90); WHITE BLOOD COUNT 5.3 TH/MM3 (4.0-11.0)
[2016-09-30 22:08] LABS: AMPHETAMINE, URINE NEG (NEG); BARBITURATES, URINE NEG (NEG); COCAINE, URINE POS (NEG)
[2016-09-30 22:15] LABS: ANION GAP 4 MEQ/L (5-15); BICARBONATE 31.7 MEQ/L (21.0-32.0); BLOOD UREA NITROGEN 14 MG/DL (7-18); CHLORIDE 104 MEQ/L (98-107); GLOMERULAR FILTRATION RATE 102 ML/MIN (>89); SODIUM (NA) 140 MEQ/L (136-145)
[2016-09-30 23:11] VITALS: BP 137/68; PULSE 68; RESP 18; O2SAT 99
[2016-10-01 02:00] VITALS: BP 114/64; PULSE 66; RESP 18; O2SAT 97
[2016-10-01 06:00] VITALS: BP 117/64; PULSE 76; RESP 18; O2SAT 98
[2016-10-01] MEDS ORDERED: LORazepam 1 MG TAB PO PRN (14:30)
[2016-10-01] MEDS ORDERED: LORazepam 2 MG/ML VIAL IV PUSH PRN ×4 (14:30)
[2016-10-01] MEDS ORDERED: LORazepam 2 MG TAB PO PRN (14:30)
[2016-10-01] MEDS ORDERED: FLUMAZENIL 0.5 MG/5 ML VIAL IV PUSH PRN (14:30)
--- NOTE | 2016-10-01 14:36 | PD.CONS ---
Provisional Diagnosis Admission Date 09/30/2016 [place] I. 1. Polysubstance Dependence with associated mood disorder Rule-out some degree of malingering or factitious disorder One[place] II. Deferred Oneill V. GAF is 40 presently History of Present Illness Service Psychiatry Consult Requested By ED Reason for Consult Voluntary psychiatric evaluation. Primary Care Physician No Primary Care Physician HPI Mr. Livingston is a 40 year-old male, well known to the psychiatric service here from multiple prior psychiatric admissions and ED visits. He was most recently admitted here under Dr. Donald in July of this year. He returned yesterday requesting voluntary psychiatric evaluation with complaints of anxiety and intermittent suicidal thoughts. EMR reviewed. Patient seen and examined. Chart reviewed. Case discussed with nursing staff. Patient presents to me as a fairly manipulative and vague historian. His stated goal in coming into the ED is "I want to be admitted here or to another hospital." He can provide no rationale for how hospitalizing him now will change the trajectory of his illness when so many prior hospitalizations have failed to do so. He says that he is "too ready to commit suicide" and says that in particular he was thinking about cutting himself on glass. He says that he has been non-adherent with his psychotropic medications and has not followed up with outpatient psychiatry. Besides the SI, he volunteers no other psychiatric symptomatology at present. With prompting, he reports that he has been experiencing AH since he was a child with voices that "say my name" and "whispers." No reported VH or other hallucinatory material. No depressive or hypomanic/manic symptoms to speak of besides the SI. No delusions. The remainder of the psychiatric ROS is negative. Past psychiatric history: Patient has prior chart diagnoses of substance use issues and schizoaffective disorder. He is not following presently with an outpatient psychiatrist. He reports that after leaving the hospital here in July, he has been hospitalized since at the [facility] and most recently at [facility] about a month and a half ago. He reports a suicide attempt in the last few months by OD on Tylenol PM. He reports that he does best on a combination of Cymbalta, Abilify, Seroquel and lithium. Family history: Reports a history of psychiatric illness on his mother's side of the family. His maternal grandfather reportedly attempted suicide. Chemical dependency history: Patient reports ongoing use of cannabis, cocaine, Suboxone, Valium "to keep me calm," and alcohol. Social history: Patient lives alone in a [place] the country in [place]. He graduated high school and is presently on disability. He is single with no children. He denies any or legal history. He denies any access to guns or firearms. Review of Systems Except as stated in HPI: all other systems reviewed are Neg Past Family Social History Coded Allergies: Zoloft (Verified Allergy, Severe, Anaphylaxis, 09/30/16) Haldol (Verified Allergy, Mild, 09/30/16) Risperdal (Verified Allergy, Unknown, 09/30/16) Per CINTHIA Campa, [facility]. Past Medical History See EMR. Patient reports a history of Hep C, herniated discs and visual impairment. Active Scripts Quetiapine 300 Mg Grr625 Mg PO HS #30 TAB Ref 0 Prov:Trevon Donald MD 08/17/16 [place] Carbonate 300 Mg [id number] Mg PO TID #90 TAB Ref 0 Prov:Trevon Donald MD 08/17/[address] 30 Mg Capdr30 Mg PO BID #60 CAP Ref 0 Prov:Trevon Donald MD 08/17/16 Aripiprazole 10 Mg Tab10 Mg PO DAILY #30 TAB Ref 0 Prov:Trevon Donald MD 08/17/16 Reported Medications Hydrocodone-Acetaminophen (Lortab)10-325 Mg Tab1 Tab PO Q4H PRN (PAIN) Ref 0 07/06/16 Discontinued Scripts Quetiapine 100 Mg [id number] Mg PO HS 14 Days Ref 1 Prov:Renzo Black MD 07/24/[address] 30 Mg Capdr30 Mg PO BID 14 Days Ref 1 Prov:Renzo Black MD 07/24/16 Aripiprazole 10 Mg Tab10 Mg PO DAILY 14 Days Ref 1 Prov:Renzo Black MD 07/24/16 [place] Carbonate 300 Mg [id number] Mg PO TID 5 Days Ref 5 Prov:Wood Jiménez MD 06/12/16 Family History See above Social History See above Patient's Strengths (min. 2) Able to access care. Verbally fluent. Physical Exam Physical examination completed by ED provider. On my examination today, the patient appears to be in no acute physical distress. No motor abnormalities noted. Labs and vital signs reviewed: Vital Signs Vital Signs Date Time Temp Pulse Resp B/P Pulse Ox O2 Delivery O2 Flow Rate FiO2 10/01/16 06:00 76 18 117/64 98 Room Air 09/30/16 18:38 98.8 Lab Results Item Value Date Time White Blood Count 5.3 TH/MM3 09/30/162139 Hemoglobin 14.5 GM/DL 09/30/162139 Platelet Count 202 TH/MM3 09/30/162139 Sodium Level 140 MEQ/L 09/30/162139 Potassium Level 4.0 MEQ/L 09/30/162139 Chloride Level 104 MEQ/L 09/30/162139 Carbon Dioxide Level 31.7 MEQ/L 09/30/162139 Anion Gap 4 MEQ/L L 09/30/162139 Blood Urea Nitrogen 14 MG/DL 09/30/162139 Creatinine 0.84 MG/DL 09/30/162139 Urine Benzodiazepines Screen POS H 09/30/162139 Urine Cocaine Screen POS H 09/30/162139 Urine Cannabinoids Screen POS H 09/30/162139 Ethyl Alcohol Level LESS THAN 3 MG/DL 09/30/162139 Mental Status Examination Patient is in hospital gown. He is fairly well groomed and maintaining basic hygiene. He is awake and alert and oriented to person and hospital at least. No evidence of delirium. No motor abnormalities noted. Speech is within normal limits for rate, tone and volume. Language and fund of knowledge seem approximately average. Mood is reportedly depressed but affect is fairly full and reactive and inconsistent with stated mood. Thought process linear. No loosening of associations. No evident delusions. Claims auditory hallucinations as detailed above but does not appear internally stimulated. No other reported hallucinatory material. Reports suicidal ideation with plan to cut himself with a piece of glass. No reported urge to hurt himself on the inpatient psychiatric unit. No homicidal ideation. Insight and judgment are fair at best. Previous Suicide Attempts: No Previous Homicide Attempts: No Assessment & Plan Problem List: (1) Other psychoactive substance dependence with psychoactive substance-induced mood disorder ICD Code: F19.24 Assessment & Plan Mr. Livingston is a 40-year-old male with psychiatric history as detailed above who presents voluntarily requesting psychiatric evaluation. Patient has had multiple prior hospitalizations both here and at other facilities without much change in the trajectory of his illness. Substance misuse has also been a near constant feature, although perhaps this is escalating as prior to his current presentation his urine toxicology has only ever been positive for cannabinoids here. I detect a distinct strain of manipulativeness in his presentation, although it is not immediately clear to me what his secondary gain is. It is possible he may simply derives some satisfaction from the sick role, in this case due to psychiatric symptomatology. Given that the patient is voicing ongoing suicidal ideation and given that he has several risk factors for self-harm, I will recommend inpatient level of care. Given that the substance use issues are perhaps worsening, I think a dual diagnosis unit is appropriate. I have instructed the nursing staff to send packets for possible admission to regional dual diagnosis centers. Patient to be retained in the J- pod until transfer to dual diagnosis unit can be arranged. I provided the patient with a CIWA scale with Ativan for the management of any withdrawal in the meantime. Seizure and fall precautions. Case discussed with nurse in the J -pod. Thank you very much for this consultation. Discharge Planning To dual diagnosis unit. Request HC Surrog/Guard Advoc?: No Wood Jiménez MD Oct 01, 2016 14:36
== END 2016-10-01 15:50 ==
LOC: NEDAMB 18:24 → NEPJ 10-01 15:50
DX: F19.94 Other psychoactive substance use, unspecified with psychoactive substance-induced mood disorder (principal); Z79.899 Other long term (current) drug therapy
CPT/HCPCS: 80048; 80307; 85025; 99285

== ENCOUNTER 2016-12-08 20:09 | Emergency (ER) | payer OTHER ==
[~2016-12-08] VITALS: Ht 177.8 cm; Wt 86.0 kg
[~2016-12-08 20:09] MED LIST changes: -QUET1TAB8 PO
[2016-12-08 20:11] VITALS: BP 146/73; PULSE 63; RESP 16; TEMP 99; O2SAT 98
[2016-12-08 23:28] LABS: AUTOMATED NEUTROPHIL # 3.8 TH/MM3 (1.8-7.7); BASOPHIL # 0.1 TH/MM3 (0-0.2); BASOPHIL % 0.9 % (0.0-2.0); EOSINOPHIL # 0.4 TH/MM3 (0-0.4); EOSINOPHIL % 5.3 % (0.0-4.0); HEMATOCRIT 48.7 % (39.0-51.0); HEMO FLAGS DIFF FINAL; LYMPH % 26.9 % (9.0-44.0); LYMPHOCYTE # 1.9 TH/MM3 (1.0-4.8); MEAN CELL VOLUME 82.4 FL (80.0-100.0); MEAN CORPUSCULAR HEMOGLOBIN 28.8 PG (27.0-34.0); MEAN CORPUSCULAR HGB CONC 34.9 % (32.0-36.0); MONO % 12.1 % (0.0-8.0); NEUT % 54.8 % (16.0-70.0); PLATELET COUNT 175 TH/MM3 (150-450); RED BLOOD COUNT 5.91 MIL/MM3 (4.50-5.90); RED CELL DISTRIBUTION WIDTH 14.2 % (11.6-17.2)
[2016-12-08 23:30] LABS: BLOOD, URINE NEG (NEG); GLUCOSE,URINE NEG (NEG); KETONE, URINE NEG (NEG); NITRITE,URINE NEG (NEG); URINE COLOR YELLOW (YELLW/STRAW)
[2016-12-08 23:35] LABS: COMMENT (UR) CULT NOT INDICATED; CULTURE IF INDICATED CULT NOT INDICATED
[2016-12-08 23:38] LABS: AMPHETAMINE, URINE NEG (NEG); BARBITURATES, URINE NEG (NEG); COCAINE, URINE NEG (NEG)
[2016-12-08 23:50] LABS: ANION GAP 8 MEQ/L (5-15); AST (GOT) 70 U/L (15-37); BICARBONATE 29.3 MEQ/L (21.0-32.0); BLOOD UREA NITROGEN 15 MG/DL (7-18); CHLORIDE 101 MEQ/L (98-107); GLOMERULAR FILTRATION RATE 84 ML/MIN (>89); POTASSIUM 4.4 MEQ/L (3.5-5.1); SODIUM (NA) 138 MEQ/L (136-145)
[2016-12-08 23:51] LABS: ACETAMINOPHEN LESS THAN 2.0 MCG/ML (10.0-30.0); ALKALINE PHOSPHATASE 91 U/L (45-117); ALT (GPT) 209 U/L (12-78); TOTAL BILIRUBIN ADULT 0.5 MG/DL (0.2-1.0)
--- NOTE | 2016-12-09 01:08 | PD ---
HPI Chief Complaint: Psychiatric Symptoms Time Seen by Provider: 22:50 Travel History International Travel<30 days: No Contact w/Intl Traveler<30days: No Traveled to known affect area: No History of Present Illness HPI This is a patient who has a history of psychiatric disease who presents to the emergency department having been off of his psychiatric medications for one month. He reports he is having increasing depression and thoughts of hurting himself. He denies any specific plan. His thoughts of been more frequent to the point where he thought he needed to come to the emergency department. He acknowledges using marijuana from time to time. PFSH Past Medical History Arthritis: No Asthma: No Autoimmune Disease: No Blood Disorders: No Anxiety: Yes Depression: Yes Heart Rhythm Problems: No Cancer: No Cardiovascular Problems: No High Cholesterol: No Chemotherapy: No Chest Pain: No Congestive Heart Failure: No COPD: No Cerebrovascular Accident: No Diminished Hearing: No Endocrine: No GERD: No Genitourinary: No Headaches: No Hiatal Hernia: No Herniated Disk: Yes (x 4) Hypertension: Yes Immune Disorder: No Kidney Stones: No Musculoskeletal: No Neurologic: No Psychiatric: Yes (Hx of treatment for depression) Reproductive: No Respiratory: No Immunizations Current: Yes Migraines: No Myocardial Infarction: No Radiation Therapy: No Renal Failure: No Schizophrenia: Yes Sickle Cell Disease: No Sleep Apnea: No Thyroid Disease: No Ulcer: No Tetanus Vaccination: Unknown Influenza Vaccination: No Past Surgical History Abdominal Surgery: No AICD: No Arteriovenous Shunt: No Cardiac Surgery: No Ear Surgery: No Endocrine Surgery: No Eye Surgery: No Genitourinary Surgery: No Gynecologic Surgery: No Insulin Pump: No Joint Replacement: No Oral Surgery: No Pacemaker: No Thoracic Surgery: No Other Surgery: No Social History Alcohol Use: Yes (occassionally ) Tobacco Use: Yes (1PPD ) Substance Use: Yes (Cocaine--5days/mo. (last use yesterday), Suboxone 3x/week ( last yesterday)) Allergies-Medications (Allergen,Severity, Reaction): Coded Allergies: Zoloft (Verified Allergy, Severe, Anaphylaxis, 12/08/16) Haldol (Verified Allergy, Mild, 12/08/16) Risperdal (Verified Allergy, Unknown, 12/08/16) Per CINTHIA Campa, SMA. Reported Meds & Prescriptions Reported Meds & Active Scripts Active Quetiapine (Quetiapine Fumarate) 300 Mg Tab 300 Mg PO HS [place] Carbonate 300 Mg Tab 300 Mg PO TID Duloxetine DR (Duloxetine HCl) 30 Mg Capdr 30 Mg PO BID Aripiprazole 10 Mg Tab 10 Mg PO DAILY Review of Systems Except as stated in HPI: all other systems reviewed are Neg Physical Exam Narrative GENERAL:Well appearing, no acute distress SKIN: Focused skin assessment warm and dry. HEAD: Atraumatic. Normocephalic. EYES: Pupils equal and round. No injection or drainage. ENT: Moist mucous membranes NECK: Trachea midline. CARDIOVASCULAR: Regular rate and rhythm. No murmur appreciated. RESPIRATORY: Clear to auscultation. Breath sounds equal bilaterally. GASTROINTESTINAL: Abdomen soft, non-tender, nondistended. MUSCULOSKELETAL: No obvious deformities. NEUROLOGICAL: Awake and alert. No obvious cranial nerve deficits. Moving all extremities. PSYCHIATRIC: Appropriate mood and affect; insight and judgment normal. Data Data Last Documented VS Vital Signs Date Time Temp Pulse Resp B/P Pulse Ox O2 Delivery O2 Flow Rate FiO2 12/08/16 20:11 99.0 63 16 146/73 98 Room Air Orders Complete Blood Count With Diff (12/08/16 22:34) Comprehensive Metabolic Panel (12/08/16 22:34) Urinalysis - C+S If Indicated (12/08/16 22:34) Psych Screen (12/08/16 22:34) Drug Screen, Random Urine (12/08/16 22:34) Alcohol (Ethanol) (12/08/16 22:34) Salicylates (Aspirin) (12/08/16 22:34) Tylenol (Acetaminophen) (12/08/16 22:34) Labs Laboratory Tests Test 12/08/16 23:15 White Blood Count 7.0 TH/MM3 Red Blood Count 5.91 MIL/MM3 Hemoglobin 17.0 GM/DL Hematocrit 48.7 % Mean Corpuscular Volume 82.4 FL Mean Corpuscular Hemoglobin 28.8 PG Mean Corpuscular Hemoglobin 34.9 % Concent Red Cell Distribution Width 14.2 % Platelet Count 175 TH/MM3 Mean Platelet Volume 10.1 FL Neutrophils (%) (Auto) 54.8 % Lymphocytes (%) (Auto) 26.9 % Monocytes (%) (Auto) 12.1 % Eosinophils (%) (Auto) 5.3 % Basophils (%) (Auto) 0.9 % Neutrophils # (Auto) 3.8 TH/MM3 Lymphocytes # (Auto) 1.9 TH/MM3 Monocytes # (Auto) 0.8 TH/MM3 Eosinophils # (Auto) 0.4 TH/MM3 Basophils # (Auto) 0.1 TH/MM3 CBC Comment DIFF FINAL Differential Comment Urine Color YELLOW Urine Turbidity CLEAR Urine pH 7.0 Urine Specific [place] 1.016 Urine Protein NEG mg/dL Urine Glucose (UA) NEG mg/dL Urine Ketones NEG mg/dL Urine Occult Blood NEG Urine Nitrite NEG Urine Bilirubin NEG Urine Urobilinogen 4.0 MG/DL Urine Leukocyte Esterase NEG Urine WBC LESS THAN 1 /hpf Microscopic Urinalysis Comment CULT NOT INDICATED Sodium Level 138 MEQ/L Potassium Level 4.4 MEQ/L Chloride Level 101 MEQ/L Carbon Dioxide Level 29.3 MEQ/L Anion Gap 8 MEQ/L Blood Urea Nitrogen 15 MG/DL Creatinine 0.99 MG/DL Estimat Glomerular Filtration 84 ML/MIN Rate Random Glucose 88 MG/DL Calcium Level 9.1 MG/DL Total Bilirubin 0.5 MG/DL Aspartate Amino Transf 70 U/L (AST/SGOT) Alanine Aminotransferase 209 U/L (ALT/SGPT) Alkaline Phosphatase 91 U/L Total Protein 7.1 GM/DL Albumin 3.7 GM/DL Salicylates Level 2.5 MG/DL Urine Opiates Screen NEG Acetaminophen Level LESS THAN 2.0 MCG/ML Urine Barbiturates Screen NEG Urine Amphetamines Screen NEG Urine Benzodiazepines Screen NEG Urine Cocaine Screen NEG Urine Cannabinoids Screen POS Ethyl Alcohol Level LESS THAN 3 MG/DL MDM Medical Decision Making Medical Screen Exam Complete: Yes Emergency Medical Condition: Yes Interpretation(s) No leukocytosis Electrolytes are reassuring Alcohol is negative Urine drug screen was positive for cannabinoid Differential Diagnosis Depression, schizoaffective disorder, substance induced mood disorder Narrative Course This is a 41-year-old male who presents to the emergency department with increasing thoughts of hurting himself in the setting of being off his medications for one month. He also acknowledges cannabis use. He has no active medical issues and his labs are reassuring. I think patient is appropriate for voluntary psychiatric evaluation. Tana Davenport MD Dec 09, 2016 01:08
[2016-12-09 07:36] VITALS: BP 147/80; PULSE 54; RESP 14; O2SAT 99
[2016-12-09 10:02] VITALS: BP 173/81; PULSE 63; RESP 18; TEMP 98; O2SAT 98
--- NOTE | 2016-12-09 11:28 | PD ---
History of Present Illness Chief Complaint: Psychiatric Symptoms Time Seen by Provider: 11:15 Travel History International Travel<30 Days: No Contact w/Intl Traveler<30days: No Known affected area: No Legal Status Legal Status: Voluntary History of Present Illness: 41-year-old male with significant history of mental illness, reportedly diagnosed with schizophrenia, now being evaluated for suicidal ideation. Patient has previously been seen by Dr. Tyra bob and diagnosed is highly manipulative. This physician also finds the patient to be quite manipulative. He is saying he did not purchase his psychotropic medicines for the last 2 months because he could not afford them. However he receives Social Security disability and inherited the house in which she lives. This physician offered to write prescriptions for his medicines and the patient is now saying that even if he purchased them, they would take 10 days to work. He indicates he does not follow through because of his mental disorder. However, he specifically recited all of his medicines and their doses, including Abilify, Seroquel, Cymbalta, lithium, and Depakote. He knows where to get them. He knows how much they cost. He knows how they work. And he obviously knows where he is treated, at [facility]. Finally, however, the patient indicates that he is suicidal and would like to be admitted to the [facility], where he has been previously. PFSH Past Medical History Arthritis: No Asthma: No Autoimmune Disease: No Blood Disorders: No Anxiety: Yes Depression: Yes Heart Rhythm Problems: No Cancer: No Cardiovascular Problems: No High Cholesterol: No Chemotherapy: No Chest Pain: No Congestive Heart Failure: No COPD: No Cerebrovascular Accident: No Diminished Hearing: No Endocrine: No GERD: No Genitourinary: No Headaches: No Hiatal Hernia: No Herniated Disk: Yes (x 4) Hypertension: Yes Immune Disorder: No Kidney Stones: No Musculoskeletal: No Neurologic: No Psychiatric: Yes (Hx of treatment for depression) Reproductive: No Respiratory: No Immunizations Current: Yes Migraines: No Myocardial Infarction: No Radiation Therapy: No Renal Failure: No Schizophrenia: Yes Sickle Cell Disease: No Sleep Apnea: No Thyroid Disease: No Ulcer: No Tetanus Vaccination: Unknown Influenza Vaccination: No Past Surgical History Abdominal Surgery: No AICD: No Arteriovenous Shunt: No Cardiac Surgery: No Ear Surgery: No Endocrine Surgery: No Eye Surgery: No Genitourinary Surgery: No Gynecologic Surgery: No Insulin Pump: No Joint Replacement: No Oral Surgery: No Pacemaker: No Thoracic Surgery: No Other Surgery: No Psychiatric History Psychiatric History Hx Psychiatric Treatment: .Bipolar I with psychotic features, anxiety, depression History of Inpatient Treatment: Yes Social History Hx Alcohol Use: Yes (occassionally ) Hx Tobacco Use: Yes (1PPD ) Hx Substance Use: Yes (Cocaine--5days/mo. (last use yesterday), Suboxone 3x/ week (last yesterday)) Substance Use Type: Alcohol, Marijuana, Nicotine/Cigarettes, Benzos (Valium, Xanax), Cocaine, Other Other Substances Used: marajuana 10 days/mo. (last yesterday), ETOH 1x/week 1/ 2 pt.vodka, 1PPD cig Hx of Substance Use Treatment: No Allergies-Medications (Allergen,Severity, Reaction): Coded Allergies: Zoloft (Verified Allergy, Severe, Anaphylaxis, 12/08/16) Haldol (Verified Allergy, Mild, 12/08/16) Risperdal (Verified Allergy, Unknown, 12/08/16) Per CINTHIA Campa, [facility]. Reported Meds & Prescriptions Reported Meds & Active Scripts Active Quetiapine (Quetiapine Fumarate) 300 Mg Tab 300 Mg PO HS [place] Carbonate 300 Mg Tab 300 Mg PO TID Duloxetine DR (Duloxetine HCl) 30 Mg Capdr 30 Mg PO BID Aripiprazole 10 Mg Tab 10 Mg PO DAILY Review of Systems Except as stated in HPI: all other systems reviewed are Neg Exam Exam Limitations: Poor Historian Alert: Yes [place]: Person, Place, Date, Situation Mood: Calm Affect: Appropriate Speech: Clear, Logical Eye Contact: Indirect Memory Intact: Immediate, Recent, Remote, Comment Suicidal: Plan, Ideation Insight/Judgement Adequate [facility] Medical Decision Making Medical Record Reviewed: Yes Assessment/Plan 41-year-old male with reported history of major mental illness and blindness. Patient is reporting that he is unable to care for himself and that he is suicidal. Despite the fact that this physician feels he is highly manipulative , this does not lessen the degree of dangerousness that he may do something to harm himself. Therefore this physician is admitting the patient to the [facility] for further treatment and stabilization upon his multiple medicines. Orders Complete Blood Count With Diff (12/08/16 22:34) Comprehensive Metabolic Panel (12/08/16 22:34) Urinalysis - C+S If Indicated (12/08/16 22:34) Psych Screen (12/08/16 22:34) Drug Screen, Random Urine (12/08/16 22:34) Alcohol (Ethanol) (12/08/16 22:34) Salicylates (Aspirin) (12/08/16 22:34) Tylenol (Acetaminophen) (12/08/16 22:34) Diet Regular Basic (12/09/16 Breakfast) Diet Regular Basic (12/09/16 Lunch) Results Vital Signs Date Time Temp Pulse Resp B/P Pulse Ox O2 Delivery O2 Flow Rate FiO2 12/09/16 10:02 98.0 63 18 173/81 98 Room Air 12/09/16 07:36 54 14 147/80 99 Room Air 12/08/16 20:11 99.0 63 16 146/73 98 Room Air Laboratory Tests Test 12/08/16 23:15 White Blood Count 7.0 Red Blood Count 5.91 Hemoglobin 17.0 Hematocrit 48.7 Mean Corpuscular Volume 82.4 Mean Corpuscular Hemoglobin 28.8 Mean Corpuscular Hemoglobin 34.9 Concent Red Cell Distribution Width 14.2 Platelet Count 175 Mean Platelet Volume 10.1 Neutrophils (%) (Auto) 54.8 Lymphocytes (%) (Auto) 26.9 Monocytes (%) (Auto) 12.1 Eosinophils (%) (Auto) 5.3 Basophils (%) (Auto) 0.9 Neutrophils # (Auto) 3.8 Lymphocytes # (Auto) 1.9 Monocytes # (Auto) 0.8 Eosinophils # (Auto) 0.4 Basophils # (Auto) 0.1 CBC Comment DIFF FINAL Differential Comment Urine Color YELLOW Urine Turbidity CLEAR Urine pH 7.0 Urine Specific [place] 1.016 Urine Protein NEG Urine Glucose (UA) NEG Urine Ketones NEG Urine Occult Blood NEG Urine Nitrite NEG Urine Bilirubin NEG Urine Urobilinogen 4.0 Urine Leukocyte Esterase NEG Urine WBC LESS THAN 1 Microscopic Urinalysis Comment CULT NOT INDICATED Sodium Level 138 Potassium Level 4.4 Chloride Level 101 Carbon Dioxide Level 29.3 Anion Gap 8 Blood Urea Nitrogen 15 Creatinine 0.99 Estimat Glomerular Filtration 84 Rate Random Glucose 88 Calcium Level 9.1 Total Bilirubin 0.5 Aspartate Amino Transf 70 (AST/SGOT) Alanine Aminotransferase 209 (ALT/SGPT) Alkaline Phosphatase 91 Total Protein 7.1 Albumin 3.7 Salicylates Level 2.5 Urine Opiates Screen NEG Acetaminophen Level LESS THAN 2.0 Urine Barbiturates Screen NEG Urine Amphetamines Screen NEG Urine Benzodiazepines Screen NEG Urine Cocaine Screen NEG Urine Cannabinoids Screen POS Ethyl Alcohol Level LESS THAN 3 Diagnosis Primary Impression: History of depressed bipolar disorder Rio Perdue MD Dec 09, 2016 11:28
[2016-12-09 13:12] VITALS: BP 173/80; TEMP 98
== END 2016-12-09 14:01 ==
LOC: NEPD 20:09 → NEPJ 12-09 14:01
DX: F31.9 Bipolar disorder, unspecified (principal); R45.851 Suicidal ideations; F20.9 Schizophrenia, unspecified; I10 Essential (primary) hypertension; Z87.891 Personal history of nicotine dependence
CPT/HCPCS: 80053; 80307; 81001; 85025; 99285

== ENCOUNTER 2016-12-23 20:19 | Emergency (ER) | payer OTHER ==
[~2016-12-23] VITALS: Ht 172.7 cm; Wt 85.0 kg
[~2016-12-23 20:19] MED LIST changes: -HYDR-3535 PO
[2016-12-23 20:27] VITALS: BP 138/77; PULSE 76; RESP 16; TEMP 98.9; O2SAT 97
--- NOTE | 2016-12-23 20:33 | PD ---
HPI Chief Complaint: Medical Clearance Time Seen by Provider: 20:33 Travel History International Travel<30 days: No Contact w/Intl Traveler<30days: No Traveled to known affect area: No History of Present Illness HPI 41-year-old male with a history of psychiatric illness presents to the emergency department by EMS for psychiatric evaluation. The patient states he has not been on any of his psych meds for about 3 weeks. States that he is feeling suicidal. He denies any attempts to harm himself. States that he would like to speak with the psychiatrist. He admits to marijuana use. Denies alcohol use. Denies IV drug use. He states that earlier today he felt "as though I was going to have a seizure." States he hasn't had a seizure in 2 years however he has been off of his Depakote. States that he feels as though his skin is crawling and his tongue is thick. He also complains of anxiety. He denies any chest pain, shortness of breath, abdominal pain, nausea, vomiting , diarrhea, headache, dizziness. No other complaints. PFSH Past Medical History Arthritis: No Asthma: No Autoimmune Disease: No Blood Disorders: No Anxiety: Yes Depression: Yes Heart Rhythm Problems: No Cancer: No Cardiovascular Problems: No High Cholesterol: No Chemotherapy: No Chest Pain: No Congestive Heart Failure: No COPD: No Cerebrovascular Accident: No Diminished Hearing: No Endocrine: No GERD: No Genitourinary: No Headaches: No Hiatal Hernia: No Herniated Disk: Yes (x 4) Hypertension: Yes Immune Disorder: No Kidney Stones: No Musculoskeletal: No Neurologic: No Psychiatric: Yes (Hx of treatment for depression) Reproductive: No Respiratory: No Immunizations Current: Yes Migraines: No Myocardial Infarction: No Radiation Therapy: No Renal Failure: No Schizophrenia: Yes Sickle Cell Disease: No Sleep Apnea: No Thyroid Disease: No Ulcer: No Tetanus Vaccination: Unknown Influenza Vaccination: No Past Surgical History Surgical History: No Previous Surgery Abdominal Surgery: No AICD: No Arteriovenous Shunt: No Cardiac Surgery: No Ear Surgery: No Endocrine Surgery: No Eye Surgery: No Genitourinary Surgery: No Gynecologic Surgery: No Insulin Pump: No Joint Replacement: No Oral Surgery: No Pacemaker: No Thoracic Surgery: No Other Surgery: No Social History Alcohol Use: Yes (occassionally ) Tobacco Use: Yes (1PPD ) Substance Use: Yes (Cocaine--5days/mo. (last use yesterday), Suboxone 3x/week ( last yesterday)) Allergies-Medications (Allergen,Severity, Reaction): Coded Allergies: Zoloft (Verified Allergy, Severe, Anaphylaxis, 12/23/16) Haldol (Verified Allergy, Mild, 12/23/16) Risperdal (Verified Allergy, Unknown, 12/23/16) Shashi Campa RN, SMA. Reported Meds & Prescriptions Reported Meds & Active Scripts Active Quetiapine (Quetiapine Fumarate) 300 Mg Tab 300 Mg PO HS [place] Carbonate 300 Mg Tab 300 Mg PO TID Duloxetine DR (Duloxetine HCl) 30 Mg Capdr 30 Mg PO BID Aripiprazole 10 Mg Tab 10 Mg PO DAILY Review of Systems Except as stated in HPI: all other systems reviewed are Neg Physical Exam Narrative GENERAL: Well-nourished and well-developed pleasant male patient in no acute distress who is nontoxic appearing. SKIN: Warm and dry. HEAD: Normocephalic and atraumatic. EYES: No injection, drainage, or hyphema noted. PERRLA. EOMI. ENT: No nasal drainage noted. Oropharynx is clear. NECK: Supple and the trachea is midline. CARDIOVASCULAR: Regular rate and rhythm. RESPIRATORY: Breath sounds are equal bilaterally with no accessory muscle use, wheezing, rhonchi, or crackles. GASTROINTESTINAL: Abdomen is soft, non-tender, and nondistended. MUSCULOSKELETAL: No obvious deformities, swelling, cyanosis, or ecchymosis is present throughout the upper and lower extremities. Patient has full range of motion without any signs of neurovascular compromise. NEUROLOGICAL: Awake, alert, and oriented. Normal speech and gait. Cranial nerves are grossly intact. Data Data Last Documented VS Vital Signs Date Time Temp Pulse Resp B/P Pulse Ox O2 Delivery O2 Flow Rate FiO2 12/23/16 20:28 16 12/23/16 20:27 98.9 76 138/77 97 Orders Complete Blood Count With Diff (12/23/16 20:32) Comprehensive Metabolic Panel (12/23/16 20:32) Valproic Acid (Depakene) (12/23/16 20:32) Psych Screen (12/23/16 20:32) Drug Screen, Random Urine (12/23/16 20:32) Alcohol (Ethanol) (12/23/16 20:32) Lorazepam (Ativan) (12/23/16 20:45) Labs Laboratory Tests Test 12/23/16 20:40 White Blood Count 7.0 TH/MM3 Red Blood Count 5.76 MIL/MM3 Hemoglobin 16.4 GM/DL Hematocrit 47.5 % Mean Corpuscular Volume 82.5 FL Mean Corpuscular Hemoglobin 28.5 PG Mean Corpuscular Hemoglobin 34.5 % Concent Red Cell Distribution Width 14.1 % Platelet Count 193 TH/MM3 Mean Platelet Volume 10.3 FL Neutrophils (%) (Auto) 56.7 % Lymphocytes (%) (Auto) 23.6 % Monocytes (%) (Auto) 13.7 % Eosinophils (%) (Auto) 5.1 % Basophils (%) (Auto) 0.9 % Neutrophils # (Auto) 4.0 TH/MM3 Lymphocytes # (Auto) 1.6 TH/MM3 Monocytes # (Auto) 1.0 TH/MM3 Eosinophils # (Auto) 0.4 TH/MM3 Basophils # (Auto) 0.1 TH/MM3 CBC Comment DIFF FINAL Differential Comment Sodium Level 138 MEQ/L Potassium Level 4.3 MEQ/L Chloride Level 104 MEQ/L Carbon Dioxide Level 27.9 MEQ/L Anion Gap 6 MEQ/L Blood Urea Nitrogen 12 MG/DL Creatinine 1.01 MG/DL Estimat Glomerular Filtration 82 ML/MIN Rate Random Glucose 103 MG/DL Calcium Level 8.7 MG/DL Total Bilirubin 0.4 MG/DL Aspartate Amino Transf 436 U/L (AST/SGOT) Alanine Aminotransferase 699 U/L (ALT/SGPT) Alkaline Phosphatase 100 U/L Total Protein 7.0 GM/DL Albumin 3.7 GM/DL Valproic Acid (Depakene) Level LESS THAN 3 MCG/ML Ethyl Alcohol Level LESS THAN 3 MG/DL [facility] Medical Decision Making Medical Screen Exam Complete: Yes Emergency Medical Condition: Yes Differential Diagnosis Differential: Depression versus adjustment reaction versus anxiety versus PTSD versus psychosis NOS versus mood disorder NOS versus substance induced mood disorder versus ODD versus adjustment reaction versus schizophrenia versus bipolar disorder versus schizoaffective versus electrolyte abnormality versus dementia versus malingering. Narrative Course Patient presents by EMS requesting psychiatric evaluation. Patient has been seen in our emergency department multiple times for similar complaints. Physical examination and vital signs are essentially unremarkable. Patient is complaining of anxiety. He is given Ativan 1 mg orally. He does not meet [place] Act criteria and will remain voluntary to speak with psychiatry. Psych screen has been ordered. The labs are unremarkable for any acute abnormalities. The patient is medically cleared for psychiatric evaluation and disposition. Diagnosis Primary Impression: Mood disorder Additional Impression: Noncompliance with medication regimen Gabby Quinonez Dec 23, 2016 20:33
[2016-12-23] MEDS ORDERED: LORazepam 1 MG TAB PO ONE (20:45)
[2016-12-23 20:57] LABS: BASOPHIL # 0.1 TH/MM3 (0-0.2); BASOPHIL % 0.9 % (0.0-2.0); EOSINOPHIL # 0.4 TH/MM3 (0-0.4); EOSINOPHIL % 5.1 % (0.0-4.0); HEMATOCRIT 47.5 % (39.0-51.0); HEMO FLAGS DIFF FINAL; LYMPH % 23.6 % (9.0-44.0); LYMPHOCYTE # 1.6 TH/MM3 (1.0-4.8); MEAN CELL VOLUME 82.5 FL (80.0-100.0); MEAN CORPUSCULAR HEMOGLOBIN 28.5 PG (27.0-34.0); MEAN CORPUSCULAR HGB CONC 34.5 % (32.0-36.0); MONO % 13.7 % (0.0-8.0); NEUT % 56.7 % (16.0-70.0); PLATELET COUNT 193 TH/MM3 (150-450); RED BLOOD COUNT 5.76 MIL/MM3 (4.50-5.90); RED CELL DISTRIBUTION WIDTH 14.1 % (11.6-17.2)
[2016-12-23 21:14] LABS: ALKALINE PHOSPHATASE 100 U/L (45-117); TOTAL BILIRUBIN ADULT 0.4 MG/DL (0.2-1.0)
[2016-12-23 21:25] LABS: ALT (GPT) 699 U/L (12-78); ANION GAP 6 MEQ/L (5-15); AST (GOT) 436 U/L (15-37); BICARBONATE 27.9 MEQ/L (21.0-32.0); BLOOD UREA NITROGEN 12 MG/DL (7-18); CHLORIDE 104 MEQ/L (98-107); GLOMERULAR FILTRATION RATE 82 ML/MIN (>89); POTASSIUM 4.3 MEQ/L (3.5-5.1); SODIUM (NA) 138 MEQ/L (136-145)
[2016-12-23 23:15] VITALS: BP 157/89; PULSE 58; RESP 18; TEMP 99; O2SAT 98
[2016-12-24 00:27] LABS: AMPHETAMINE, URINE NEG (NEG); BARBITURATES, URINE NEG (NEG); COCAINE, URINE NEG (NEG)
[2016-12-24 02:07] VITALS: BP 107/58; PULSE 70; RESP 18; TEMP 96; O2SAT 99
[2016-12-24 06:15] VITALS: BP 115/74; PULSE 66; RESP 18; O2SAT 99
== END 2016-12-24 09:09 | disposition short-term general hospital (02) ==
LOC: NEPE 20:19 → NEPJ 12-24 09:09
DX: F39 Unspecified mood [affective] disorder (principal); F41.9 Anxiety disorder, unspecified; F32.9 Major depressive disorder, single episode, unspecified; I10 Essential (primary) hypertension; F20.9 Schizophrenia, unspecified; F17.200 Nicotine dependence, unspecified, uncomplicated; Z91.14 Patient's other noncompliance with medication regimen; Z79.899 Other long term (current) drug therapy; Z88.8 Allergy status to other drugs, medicaments and biological substances
CPT/HCPCS: 80053; 80164; 80307; 85025; 99285

== ENCOUNTER 2017-03-19 15:22 | Emergency (ER) | payer OTHER ==
[~2017-03-19] VITALS: Ht 177.8 cm; Wt 85.0 kg
[2017-03-19 15:24] VITALS: BP 145/78; PULSE 66; RESP 13; TEMP 99.5; O2SAT 98
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
[2017-03-19 16:32] LABS: BASOPHIL % 0.6 % (0.0-2.0); EOSINOPHIL # 0.2 TH/MM3 (0-0.4); EOSINOPHIL % 2.8 % (0.0-4.0); HEMATOCRIT 51.3 % (39.0-51.0); HEMO FLAGS DIFF FINAL; LYMPH % 17.1 % (9.0-44.0); LYMPHOCYTE # 1.4 TH/MM3 (1.0-4.8); MEAN CELL VOLUME 85.2 FL (80.0-100.0); MEAN CORPUSCULAR HEMOGLOBIN 28.7 PG (27.0-34.0); MEAN CORPUSCULAR HGB CONC 33.7 % (32.0-36.0); MONO % 8.1 % (0.0-8.0); NEUT % 71.4 % (16.0-70.0); PLATELET COUNT 196 TH/MM3 (150-450); RED BLOOD COUNT 6.02 MIL/MM3 (4.50-5.90); RED CELL DISTRIBUTION WIDTH 13.9 % (11.6-17.2); WHITE BLOOD COUNT 8.4 TH/MM3 (4.0-11.0)
[2017-03-19 16:54] LABS: ANION GAP 5 MEQ/L (5-15)
[2017-03-19 17:00] LABS: ALKALINE PHOSPHATASE 84 U/L (45-117); ALT (GPT) 138 U/L (12-78); AST (GOT) 74 U/L (15-37); BICARBONATE 28.8 MEQ/L (21.0-32.0); BLOOD UREA NITROGEN 14 MG/DL (7-18); CHLORIDE 103 MEQ/L (98-107); GLOMERULAR FILTRATION RATE 85 ML/MIN (>89); POTASSIUM 3.6 MEQ/L (3.5-5.1); SODIUM (NA) 137 MEQ/L (136-145); TOTAL BILIRUBIN ADULT 0.5 MG/DL (0.2-1.0)
[2017-03-19 17:02] LABS: ACETAMINOPHEN LESS THAN 2.0 MCG/ML (10.0-30.0); ALCOHOL LESS THAN 3 MG/DL (0-5)
[2017-03-19 22:27] VITALS: BP 139/73; PULSE 51; RESP 18; O2SAT 97
[2017-03-20 02:00] VITALS: BP 145/67; PULSE 56; RESP 18; O2SAT 95
[2017-03-20 06:12] VITALS: BP 151/69; PULSE 59; RESP 18; O2SAT 95
[2017-03-20 10:58] VITALS: BP 137/63; PULSE 57; RESP 17; TEMP 98.8; O2SAT 97
[2017-03-20 15:00] VITALS: BP 138/65; PULSE 72; RESP 18; O2SAT 98
[2017-03-20 22:06] VITALS: BP 128/69; PULSE 60; RESP 18
[2017-03-21 06:30] VITALS: BP 113/66; PULSE 85; RESP 18
[2017-03-21 10:47] VITALS: BP 125/58; PULSE 63; RESP 18
[2017-03-21 17:26] VITALS: BP 124/75; PULSE 73; RESP 18
--- NOTE | 2017-03-21 19:52 | PD ---
History of Present Illness Chief Complaint: Psychiatric Symptoms Time Seen by Provider: 19:30 Travel History International Travel<30 Days: No Contact w/Intl Traveler<30days: No Known affected area: No Legal Status Legal Status: Voluntary History of Present Illness: 41-year-old male schizophrenic with recent depressed and suicidal thoughts. Thoughts of killing himself with a gunshot. Reportedly has access to a weapon. Patient is currently diana for safety and wants to go home. However, he is off his medicines and agrees to start back on them tonight. He wants Abilify 10 mg by mouth daily at bedtime and this is being prescribed by this physician. He is also getting ibuprofen for headache. Patient has been treated by [facility] in the past and is willing to go back there for treatment in the future. Denies suicidal or homicidal ideation, plan or intent. Denies psychotic symptoms and cognition is baseline. PFSH Past Medical History Medical History: Denies Significant Hx Arthritis: No Asthma: No Autoimmune Disease: No Blood Disorders: No Anxiety: Yes Depression: Yes Heart Rhythm Problems: No Cancer: No Cardiovascular Problems: No High Cholesterol: No Chemotherapy: No Chest Pain: No Congestive Heart Failure: No COPD: No Cerebrovascular Accident: No Diminished Hearing: No Endocrine: No GERD: No Genitourinary: No Headaches: No Hiatal Hernia: No Herniated Disk: Yes (x 4) Hypertension: Yes Immune Disorder: No Kidney Stones: No Musculoskeletal: No Neurologic: No Psychiatric: Yes (Hx of treatment for depression) Reproductive: No Respiratory: No Immunizations Current: Yes Migraines: No Myocardial Infarction: No Radiation Therapy: No Renal Failure: No Schizophrenia: Yes Sickle Cell Disease: No Sleep Apnea: No Thyroid Disease: No Ulcer: No Past Surgical History Abdominal Surgery: No AICD: No Arteriovenous Shunt: No Cardiac Surgery: No Ear Surgery: No Endocrine Surgery: No Eye Surgery: No Genitourinary Surgery: No Gynecologic Surgery: No Insulin Pump: No Joint Replacement: No Oral Surgery: No Pacemaker: No Thoracic Surgery: No Other Surgery: No Psychiatric History Psychiatric History Hx Psychiatric Treatment: .Bipolar I with psychotic features, anxiety, depression. Patient also admits to previous diagnosis of schizophrenia, which appears more likely. History of Inpatient Treatment: Yes Guns or firearms in home: No Social History Hx Alcohol Use: Yes Hx Tobacco Use: No Hx Substance Use: Yes Substance Use Type: Marijuana, Cocaine Other Substances Used: DENIES ANY CURRENT USE Hx of Substance Use Treatment: No Allergies-Medications (Allergen,Severity, Reaction): Coded Allergies: sertraline (Unverified Allergy, Severe, Anaphylaxis, 02/09/17) haloperidol (Unverified Allergy, Mild, 02/09/17) risperidone (Unverified Allergy, Unknown, 02/09/17) Per Lokesh RN, [facility]. Reported Meds & Prescriptions Reported Meds & Active Scripts Active Quetiapine (Quetiapine Fumarate) 300 Mg Tab 300 Mg PO HS [place] Carbonate 300 Mg Tab 300 Mg PO TID Duloxetine DR (Duloxetine HCl) 30 Mg Capdr 30 Mg PO BID Aripiprazole 10 Mg Tab 10 Mg PO DAILY Review of Systems Except as stated in HPI: all other systems reviewed are Neg Exam Alert: Yes [place]: Person, Place, Date, Situation Mood: Calm Affect: Appropriate Speech: Clear, Logical Eye Contact: Normal Memory Intact: Immediate, Recent, Remote Insight/Judgement Adequate MDM Medical Decision Making Medical Record Reviewed: Yes Assessment/Plan Patient interviewed at bedside, chart reviewed and case discussed with nurse Bob. Patient to be restarted on Abilify this evening and will be reevaluated in the morning for discharge. He is currently calm, pleasant and cooperative and diana for safety. However, he remains at risk for self- injurious behavior. We will reevaluate in the morning regarding disposition. Orders Orders Diet Regular Basic (03/21/17 Breakfast) Diet Regular Basic (03/21/17 Lunch) Diet Regular Basic (03/21/17 Dinner) Aripiprazole (Abilify) (03/21/17 21:00) Ibuprofen (Motrin) (03/21/17 20:00) Results Vital Signs Date Time Temp Pulse Resp B/P (MAP) Pulse Ox O2 Delivery O2 Flow Rate FiO2 03/21/17 17:26 73 18 124/75 (91) 03/21/17 10:47 63 18 125/58 (80) 03/21/17 06:30 85 18 113/66 (82) 9/23/17 22:06 60 18 128/69 (88) Diagnosis Primary Impression: Paranoid type schizophrenia, chronic state Condition: Stable Rio Perdue MD Mar 21, 2017 19:52
[2017-03-21] MEDS ORDERED: IBUPROFEN 400 MG TAB PO ONE (20:00)
[2017-03-21] MEDS ORDERED: ARIPiprazole 10 MG TAB PO SCH (21:00)
[2017-03-21 23:23] VITALS: BP 138/68; PULSE 62; RESP 18
[2017-03-22 06:10] VITALS: BP 121/63; PULSE 62; RESP 18
--- NOTE | 2017-03-22 08:14 | PD ---
Data Data Last Documented VS Vital Signs Date Time Temp Pulse Resp B/P (MAP) Pulse Ox O2 Delivery O2 Flow Rate FiO2 03/22/17 06:10 62 18 121/63 (82) 03/20/17 15:00 98 Room Air 03/20/17 10:58 98.8 Orders Orders Complete Blood Count With Diff (03/19/17 15:47) Comprehensive Metabolic Panel (03/19/17 15:47) Psych Screen (03/19/17 15:47) Drug Screen, Random Urine (03/19/17 15:47) Alcohol (Ethanol) (03/19/17 15:47) Salicylates (Aspirin) (03/19/17 15:47) Tylenol (Acetaminophen) (03/19/17 15:47) Diet Regular Basic (03/20/17 Breakfast) Diet Regular Basic (03/20/17 Lunch) Diet Regular Basic (03/20/17 Dinner) Diet Regular Basic (03/21/17 Breakfast) Diet Regular Basic (03/21/17 Lunch) Diet Regular Basic (03/21/17 Dinner) Aripiprazole (Abilify) (03/21/17 21:00) Ibuprofen (Motrin) (03/21/17 20:00) Diet Regular Basic (03/22/17 Breakfast) Labs Laboratory Tests Test 03/19/17 16:00 03/19/17 16:05 Urine Opiates Screen NEG Urine Barbiturates Screen NEG Urine Amphetamines Screen NEG Urine Benzodiazepines Screen NEG Urine Cocaine Screen NEG Urine Cannabinoids Screen NEG White Blood Count 8.4 TH/MM3 Red Blood Count 6.02 MIL/MM3 Hemoglobin 17.3 GM/DL Hematocrit 51.3 % Mean Corpuscular Volume 85.2 FL Mean Corpuscular Hemoglobin 28.7 PG Mean Corpuscular Hemoglobin Concent 33.7 % Red Cell Distribution Width 13.9 % Platelet Count 196 TH/MM3 Mean Platelet Volume 8.7 FL Neutrophils (%) (Auto) 71.4 % Lymphocytes (%) (Auto) 17.1 % Monocytes (%) (Auto) 8.1 % Eosinophils (%) (Auto) 2.8 % Basophils (%) (Auto) 0.6 % Neutrophils # (Auto) 6.0 TH/MM3 Lymphocytes # (Auto) 1.4 TH/MM3 Monocytes # (Auto) 0.7 TH/MM3 Eosinophils # (Auto) 0.2 TH/MM3 Basophils # (Auto) 0.0 TH/MM3 CBC Comment DIFF FINAL Differential Comment Blood Urea Nitrogen 14 MG/DL Creatinine 0.98 MG/DL Random Glucose 106 MG/DL Total Protein 7.2 GM/DL Albumin 4.2 GM/DL Calcium Level 9.0 MG/DL Alkaline Phosphatase 84 U/L Aspartate Amino Transf (AST/SGOT) 74 U/L Alanine Aminotransferase (ALT/SGPT) 138 U/L Total Bilirubin 0.5 MG/DL Sodium Level 137 MEQ/L Potassium Level 3.6 MEQ/L Chloride Level 103 MEQ/L Carbon Dioxide Level 28.8 MEQ/L Anion Gap 5 MEQ/L Estimat Glomerular Filtration Rate 85 ML/MIN Salicylates Level 2.2 MG/DL Acetaminophen Level LESS THAN 2.0 MCG/ML Ethyl Alcohol Level LESS THAN 3 MG/DL MDM Supervised Visit with FRANCINE: Yes Narrative Course I was asked by psych screener to reevaluate this patient is been seen by psychiatrist and deemed not to be a threat to himself or others. This is a 41- year-old male with a history of schizophrenia which is chronic. He presented voluntarily last night for evaluation by the psychiatry department, he was cleared medically overnight by PA, at this time he has no medical complaints ambulatory. Has lazy eye on the right. No indication further medical or psychiatric workup he is cleared for discharge. Diagnosis Primary Impression: Paranoid type schizophrenia, chronic state Condition: Stable Zeferino Lopez MD Mar 22, 2017 08:14
[2017-03-22] MEDS ORDERED: ARIP1TAB12 PO (09:59)
[2017-03-22] MEDS ORDERED: DULO1CAP2 PO (09:59)
[2017-03-22] MEDS ORDERED: IBUP1TAB5 PO (09:59)
[2017-03-22 10:09] VITALS: BP 121/63; PULSE 62; RESP 18
[2017-03-22 11:06] VITALS: BP 128/85; PULSE 85; RESP 18; O2SAT 99
[2017-03-27] MEDS ORDERED: IBUP1TAB5 PO (00:39)
[2017-03-27] MEDS ORDERED: ABIL10TA8 PO (00:39)
== END 2017-03-22 11:13 | disposition home or self-care (01) ==
LOC: NEPD 15:22 → NEPJ 03-22 11:13
DX: F20.0 Paranoid schizophrenia (principal); M54.6 Pain in thoracic spine; I10 Essential (primary) hypertension; F17.200 Nicotine dependence, unspecified, uncomplicated; Z86.59 Personal history of other mental and behavioral disorders
CPT/HCPCS: 80053; 80307; 85025; 99284

== ENCOUNTER 2017-03-26 15:19 | Inpatient (IN) | payer OTHER, MEDICARE ==
[~2017-03-26] VITALS: Ht 177.8 cm; Wt 98.5 kg
[~2017-03-26 15:19] MED LIST changes: +IBUP400T20 PO
[2017-03-26 15:21] VITALS: BP 143/80; PULSE 80; RESP 13; TEMP 99.1; O2SAT 96
[2017-03-26 16:46] VITALS: BP 135/81; PULSE 67; RESP 16; TEMP 98.7; O2SAT 95
[2017-03-26 17:21] LABS: AUTOMATED NEUTROPHIL # 5.5 TH/MM3 (1.8-7.7); BASOPHIL # 0.1 TH/MM3 (0-0.2); BASOPHIL % 0.7 % (0.0-2.0); EOSINOPHIL # 0.3 TH/MM3 (0-0.4); EOSINOPHIL % 3.1 % (0.0-4.0); HEMATOCRIT 53.1 % (39.0-51.0); HEMO FLAGS DIFF FINAL; LYMPH % 20.1 % (9.0-44.0); LYMPHOCYTE # 1.7 TH/MM3 (1.0-4.8); MEAN CELL VOLUME 84.8 FL (80.0-100.0); MEAN CORPUSCULAR HGB CONC 34.2 % (32.0-36.0); MONO % 10.3 % (0.0-8.0); NEUT % 65.8 % (16.0-70.0); PLATELET COUNT 192 TH/MM3 (150-450); RED BLOOD COUNT 6.26 MIL/MM3 (4.50-5.90); RED CELL DISTRIBUTION WIDTH 13.6 % (11.6-17.2); WHITE BLOOD COUNT 8.4 TH/MM3 (4.0-11.0)
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
[2017-03-26 17:37] LABS: ANION GAP 2 MEQ/L (5-15)
[2017-03-26 17:42] LABS: ALKALINE PHOSPHATASE 81 U/L (45-117); ALT (GPT) 160 U/L (12-78); AST (GOT) 73 U/L (15-37); BICARBONATE 31.6 MEQ/L (21.0-32.0); BLOOD UREA NITROGEN 14 MG/DL (7-18); CHLORIDE 104 MEQ/L (98-107); GLOMERULAR FILTRATION RATE 98 ML/MIN (>89); POTASSIUM 3.7 MEQ/L (3.5-5.1); SODIUM (NA) 138 MEQ/L (136-145); TOTAL BILIRUBIN ADULT 0.3 MG/DL (0.2-1.0)
[2017-03-26] MEDS ORDERED: IBUPROFEN 800 MG TAB PO ONE (17:45)
[2017-03-26 17:48] LABS: ACETAMINOPHEN LESS THAN 2.0 MCG/ML (10.0-30.0)
[2017-03-26 17:49] LABS: ALCOHOL LESS THAN 3 MG/DL (0-5)
[2017-03-26 21:50] VITALS: BP 133/71; PULSE 75; RESP 17; O2SAT 98
[2017-03-27] MEDS ORDERED: IBUP400T20 PO (00:39)
[2017-03-27] MEDS ORDERED: DULO1CAP2 PO (00:39)
[2017-03-27] MEDS ORDERED: ARIP1TAB5 PO (00:39)
[2017-03-27] MEDS ORDERED: diphenhydrAMINE HCL 50 MG CAP PO PRN (01:30)
[2017-03-27] MEDS ORDERED: diphenhydrAMINE HCL 50 MG/ML VIAL IM PRN (01:45)
[2017-03-27] MEDS ORDERED: diphenhydrAMINE HCL 50 MG CAP - HS PRN PO (01:45)
[2017-03-27] MEDS ORDERED: MAGNESIUM HYDROXIDE SUSP 30 ML CUP PO PRN (01:45)
[2017-03-27] MEDS ORDERED: LORazepam 2 MG/ML VIAL IM PRN (01:45)
[2017-03-27] MEDS ORDERED: diphenhydrAMINE HCL 50 MG/ML VIAL - HS PRN IM (01:45)
[2017-03-27] MEDS ORDERED: ACETAMINOPHEN 325 MG TAB PO PRN (01:45)
[2017-03-27] MEDS ORDERED: ALUMINUM/MAGNESIUM/SIMETH 30 ML CUP PO PRN (01:45)
[2017-03-27 02:09] VITALS: BP 148/71; PULSE 53; RESP 17; TEMP 97.3; O2SAT 98
[2017-03-27] MEDS: ARIPiprazole 10 MG TAB PO SCH (08:13)
[2017-03-27] MEDS: DULoxetine HCl DR 30 MG CAP PO SCH ×2 (08:13→20:26)
[2017-03-27] MEDS: NICOTINE 21 MG/24 HR PATCH T-DERMAL SCH (08:13)
[2017-03-27] MEDS: LORazepam 1 MG TAB PO PRN ×2 (10:38→20:27)
[2017-03-27 18:25] VITALS: BP 138/63; PULSE 74; RESP 18; TEMP 98.6; O2SAT 98
--- NOTE | 2017-03-27 19:40 | HHI.HP ---
Provisional Diagnosis Admission Date Mar 27, 2017 at 01:23 [place]. Schizoaffective disorder Certification of Person's Competence To Provide Express and Informed Consent I have personally examined Darius Livingston , a person being served at [facility] on, Mar 27, 2017 19:40. Express and informed consent means consent voluntarily given in writing, by a competent person, after sufficient explanation and disclosure of the subject matter involved to enable the person to make a knowing and willful decision without any element of force, fraud, deceit, duress, or other form of constraint or coercion. This person is 18 years of age or older, is not now known to be incompetent to consent to treatment with a guardian advocate, and does not have a health care surrogate or proxy currently making medical treatment decisions. I have found this person to be one of the following: [x] Competent to provide express and informed consent, as defined above, for voluntary admission to this facility and is competent to provide express and informed consent for treatment. He/she has the consistent capacity to make well reasoned, willful, and knowing decisions concerning his or her medical or mental health treatment. The person fully and consistently understands the purpose of the admission for examination/placement and is fully capable of personally exercising all rights assured [place] Incompetent to provide express and informed consent to voluntary admission, and this is incompetent to provide express and informed consent to treatment. The person must be transferred to involuntary status and a petition for a guardian advocate filed with the Circuit Court. [] Refusing to provide express and informed consent to voluntary admission but is competent to provide express and informed consent for treatment. The person must be discharged or transferred to involuntary status. Form shall be completed within 24 hours of a person's arrival at the receiving facility and filed in the clinical record of each person: 1. Admitted on a voluntary basis 2. Permitted to provide express and informed consent to his/her own treatment 3. Allowed to transfer from involuntary to voluntary status 4. Prior to permitting a person to consent to his or her own treatment after having been previously found incompetent to consent to treatment. History of Present Illness Capacity: Has Capacity HPI Patient is a 41 y/o man, single, domiciled alone, unemployed on SSD, past psychiatric history of schizoaffective disorder, previous psychiatric admissions, two prior suicide attempts, no previous self injurious behavior who brought self to ED endorsing suicidal ideations and having attempted to walk into traffic trying to get hit by a car as well as endorsing perceptual disturbances. As per ED note, patient endorsed suicidal ideations, walked in front of traffic trying to get hit by car. Stated that he is going blind and endorsed auditory hallucinations. Work up showed: Utox (-), head CT (-), neck xray (-), CXR (-). Patient was seen on the psychiatry unit eating lunch but able to engage in interview with commercial lines underwriter and nurse. He states that he is losing more of his eyesight and felt depressed. He reports also missing his parents who in 2010 and 2012. He states that he has not taken his medications for the past couple of month and had been having suicidal ideations x 1 month. He states that the SI have been worsening and a couple of days ago had walked in front of traffic but did not get hit. He reports that a friend had advised him to go get help and upon his las ED visit was provided prescriptions which he had lost. He reports that lately he has been having AH whispering, last time being last night, noted decreased sleep, energy lately, no change in appetite, concentration, mood being more depressed after stopping his medications, occasional feeling of helplessness and hopelessness. Currently he reports feeling good denies SI, HI, AVH or delusions at this time. Family psychiatric history: mother with schizophrenia, no suicides. Past psychiatric history: previous psychiatric diagnosis of schizoaffective disorder, 7-8 previous psychiatric admissions, two previous suicide attempts, denies self injurious behavior. No history of abuse. Has outpatient psychiatrist at [facility], last seen 6 months ago. Substance use history: Tobacco (+), THC and cocaine use (last use was 4 months ago; denies previous rehabs or detox programs. Past medical history: denies Allergies: Haldol, Risperdal, Geodon, zoloft Social history: single, no children, living in house, alone, unemployed on SSD, highest education: high school diploma. Contact: Adrian Reggie [phone] Review of Systems Except as stated in HPI: all other systems reviewed are Neg Past Psych History Psychological trauma history denies Violence risk - others (6 mos) low Violence risk - self (6 mos) moderate Substance Abuse History Drugs/Alcohol past 12 months Tobacco (+), THC and cocaine use (last use was 4 months ago; denies previous rehabs or detox programs. Past Family Social History Coded Allergies: sertraline (Unverified Allergy, Severe, Anaphylaxis, 02/09/17) haloperidol (Unverified Allergy, Mild, 02/09/17) risperidone (Unverified Allergy, Unknown, 02/09/17) Per Lokesh RN, SMA. Reported Medications Ibuprofen (Ibuprofen) 400 Mg Tab, 400 MG PO Q8H Y for HEADACHE, TAB 0 Refills 03/27/[address] (Duloxetine DR) 30 Mg Capdr, 30 MG PO BID, #30 CAP 0 Refills 03/27/17 Aripiprazole (Abilify) 10 Mg Tab, 10 MG PO DAILY, #30 TAB 0 Refills 03/27/17 Discontinued Scripts Ibuprofen (Ibuprofen) 400 Mg Tab, 400 MG PO Q8H Y for HEADACHE, #30 TAB 0 Refills Prov:Rio Perdue MD 03/22/17 Duloxetine (Duloxetine DR) 30 Mg Capdr, 30 MG PO BID for health, #60 CAP 0 Refills Prov:Rio Perdue MD 03/22/17 Aripiprazole (Aripiprazole) 10 Mg Tab, 10 MG PO DAILY for health, #30 TAB 0 Refills Prov:Rio Perdue MD 03/22/17 Quetiapine (Quetiapine) 300 Mg Tab, 300 MG PO HS for health, #30 TAB 0 Refills Prov:Trevon Donald MD 08/17/16 [place] Carbonate ([place] Carbonate) 300 Mg Tab, 300 MG PO TID for health, #90 TAB 0 Refills Prov:Trevon Donald MD 08/17/16 Current Medications Medications (Trade) Dose Ordered Sig/Carleen Route Start Time Stop Time Status Last Admin (Abilify) 10 mg DAILY PO 03/27/17 09:00 03/27/17 08:13 (Cymbalta ) 30 mg BID PO 03/27/17 09:00 03/27/17 08:13 (Motrin) 400 mg Q8H PRN PO 03/27/17 01:30 (Ativan) 1 mg Q6H PRN PO 03/27/17 01:45 03/27/17 10:38 (Ativan Inj) 1 mg Q6H PRN IM 03/27/17 01:45 (Benadryl) 50 mg Q6H PRN PO 03/27/17 01:30 (Benadryl Inj) 50 mg Q6H PRN IM 03/27/17 01:45 (Benadryl) 50 mg HS PRN PO 03/27/17 01:45 (Benadryl Inj) 50 mg HS PRN IM 03/27/17 01:45 (Tylenol) 650 mg Q4H PRN PO 03/27/17 01:45 (Milk Of Magnesia Liq) 30 ml DAILY PRN PO 03/27/17 01:45 (Mag-Al Plus Susp Liq) 30 ml Q6H PRN PO 03/27/17 01:45 (Habitrol 21 Mg Patch.24 Hr) 1 patch DAILY T-DERMAL 03/27/17 09:00 03/27/17 08:13 Miscellaneous Information 1 HS T-DERMAL 03/27/17 21:00 Family History mother with schizophrenia, no suicides. Social History single, no children, living in house, alone, unemployed on SSD, highest education: high school diploma. Contact: Adrian Paredes [phone] Patient's Strengths (min. 2) verbal and communicative Physical Exam Patient found to be in no acute distress, no noted gross motor abnormalities but noted with right eye strabismus, no tremors of EPS, no noted psychomotor agitation of retardation. Vital Signs Vital Signs Date Time Temp Pulse Resp B/P (MAP) Pulse Ox O2 Delivery O2 Flow Rate FiO2 03/27/17 18:25 98.6 74 18 138/63 (88) 98 03/26/17 16:46 Room Air Mental Status Examination Appearance appears stated age, in casual clothing, fair hygiene and grooming, calm and cooperative with interview; fair eye contact Speech: Unremarkable Orientation: x3 Memory: Unremarkable Thought Process: Logical, Organized Thought Content: Unremarkable Language fluent and spontaneous Fund of Knowledge fair Hallucination Type: Auditory Attention and Concentration: Good Suicidal Ideation: Yes Previous Suicide Attempts: Yes Homicidal Ideation: No Previous Homicide Attempts: No Insight: Poor Judgment: Poor Affect: Euthymic Mood: Anxious Motor Activity: Normal gait Assessment & Plan Problem List: (1) Schizoaffective disorder ICD Codes: F25.9 - Schizoaffective disorder, unspecified Assessment & Plan Estimated LOS: 5-7 days. Patient is a 41 y/o man, single, domiciled alone, unemployed on SSD, past psychiatric history of schizoaffective disorder, previous psychiatric admissions, two prior suicide attempts, no previous self injurious behavior who brought self to ED endorsing suicidal ideations and having attempted to walk into traffic trying to get hit by a car as well as endorsing perceptual disturbances. Patient admitted on voluntary status. Will continue Cymbalta 30mg PO BID and abilify 10mg PO daily for psychosis. Monitor for medication response and ADRs. Continue to monitor mood and behavior. Discharge planning in progress. Discharge Planning At risk for further decompensation if at lower level of care. Carols Martinez MD Mar 27, 2017 19:40
[2017-03-27] MEDS: IBUPROFEN 400 MG TAB PO PRN (20:27)
[2017-03-27] MEDS: REMOVE OLD NICOTINE PATCH T-DERMAL SCH (20:27)
[2017-03-28 05:59] VITALS: BP 128/60; PULSE 65; RESP 18; TEMP 98.2; O2SAT 97
[2017-03-28] MEDS: ARIPiprazole 10 MG TAB PO SCH (09:09)
[2017-03-28] MEDS: DULoxetine HCl DR 30 MG CAP PO SCH ×2 (09:09→20:18)
[2017-03-28] MEDS: NICOTINE 21 MG/24 HR PATCH T-DERMAL SCH (09:10)
[2017-03-28] MEDS: LORazepam 1 MG TAB PO PRN ×2 (11:58→20:21)
--- NOTE | 2017-03-28 15:28 | HHI.PYPN ---
Subjective Remarks Patient was seen and case discussed with nursing. Today, patient is minimizing all of his symptoms. He claims that his depression, suicidal ideation, and voices have all resolved. Compliant with medications and behaving well on the unit. Objective Alert: Yes [place]: Person, Place, Date Mood: Depressed Affect: Blunted Memory Intact: Immediate (grossly intact) Hallucinations: Auditory (denies) Delusions: Yes Delusion Type: Paranoid (likely responding) Suicidal: Ideation (denies but poor historian) Homicidal: Ideation (denies) Insight/Judgment Poor Vitals/IOs Vital Signs Date Time Temp Pulse Resp B/P (MAP) Pulse Ox O2 Delivery O2 Flow Rate FiO2 03/28/17 05:59 98.2 65 18 128/60 (82) 97 03/26/17 16:46 Room Air Assessment & Plan Problem List: (1) Schizoaffective disorder ICD Codes: F25.9 - Schizoaffective disorder, unspecified Assessment & Plan Continue current treatment plan Justification for Cont. Inpt. Patient will decompensate in a less restrictive setting Bishop Doe DO Mar 28, 2017 15:28
[2017-03-28 18:00] VITALS: BP 133/71; PULSE 73; RESP 18; TEMP 99.7; O2SAT 98
[2017-03-28] MEDS: REMOVE OLD NICOTINE PATCH T-DERMAL SCH (20:18)
[2017-03-28] MEDS: IBUPROFEN 400 MG TAB PO PRN (21:17)
[2017-03-29 05:44] VITALS: BP 112/60; PULSE 64; RESP 18; TEMP 98.1; O2SAT 97
[2017-03-29] MEDS: NICOTINE 21 MG/24 HR PATCH T-DERMAL SCH (08:18)
[2017-03-29] MEDS: ARIPiprazole 10 MG TAB PO SCH (08:18)
[2017-03-29] MEDS: DULoxetine HCl DR 30 MG CAP PO SCH ×2 (08:18→21:21)
[2017-03-29 11:33] LABS: ALT (GPT) 120 U/L (12-78); ANION GAP 7 MEQ/L (5-15); AST (GOT) 44 U/L (15-37); BICARBONATE 30.4 MEQ/L (21.0-32.0); BLOOD UREA NITROGEN 13 MG/DL (7-18); CHLORIDE 101 MEQ/L (98-107); GLOMERULAR FILTRATION RATE 110 ML/MIN (>89); POTASSIUM 3.9 MEQ/L (3.5-5.1); SODIUM (NA) 138 MEQ/L (136-145)
[2017-03-29 11:35] LABS: ALKALINE PHOSPHATASE 75 U/L (45-117); HDL CHOLESTEROL 48.4 MG/DL (40.0-60.0); LDL CHOLESTEROL 101 MG/DL (0-99); TOTAL BILIRUBIN ADULT 0.5 MG/DL (0.2-1.0)
[2017-03-29] MEDS: IBUPROFEN 400 MG TAB PO PRN (14:37)
[2017-03-29] MEDS: LORazepam 1 MG TAB PO PRN ×2 (14:37→21:21)
[2017-03-29 15:46] LABS: HEMOGLOBIN A1a 0.9 %; HEMOGLOBIN A1b 1.4 %; HEMOGLOBIN Ao 86.7 %; HEMOGLOBIN LA1C 1.9 %; HEMOGLOBIN P3 3.3 %
[2017-03-29 15:47] VITALS: BP 125/68; PULSE 93; RESP 18; TEMP 98.7; O2SAT 97
--- NOTE | 2017-03-29 16:03 | HHI.PYPN ---
Subjective Remarks Patient seen for follow-up, chart reviewed. Patient found sitting on hospital bed, calm and cooperative with interview. He states feeling "pretty well", he reports that over the weekend things went ok. He deneis any AH, last tie being two days ago. He reports his mood being more stable, and would like to be discharged home. Patient had submitted a ROR but recinded it for further observation and for opportunity for safe discharge plan. He states that he no longer feels depressed and states that his reasons to live are to have a family of his own in the future, accomplish his bucket list and to enjoy life. At this time denies SI, HI, AVH or delusions. Review of Systems Except as stated in HPI: all other systems reviewed are Neg Objective Alert: Yes [place]: Person, Place, Date Mood: Calm, Depressed Affect: Restricted, Blunted Memory Intact: Immediate (grossly intact) Hallucinations: Auditory (denies) Delusions: Yes Delusion Type: Other Suicidal: Ideation (denies) Homicidal: Ideation (denies) Insight/Judgment Fair insight, impulse control and judgment Labs labs reviewed Test 03/29/17 09:15 Blood Urea Nitrogen 13 MG/DL Creatinine 0.78 MG/DL Random Glucose 83 MG/DL Total Protein 7.5 GM/DL Albumin 3.8 GM/DL Calcium Level 9.0 MG/DL Alkaline Phosphatase 75 U/L Aspartate Amino Transf (AST/SGOT) 44 U/L Alanine Aminotransferase (ALT/SGPT) 120 U/L Total Bilirubin 0.5 MG/DL Sodium Level 138 MEQ/L Potassium Level 3.9 MEQ/L Chloride Level 101 MEQ/L Carbon Dioxide Level 30.4 MEQ/L Anion Gap 7 MEQ/L Estimat Glomerular Filtration Rate 110 ML/MIN Triglycerides Level 162 MG/DL Cholesterol Level 182 MG/DL LDL Cholesterol 101 MG/DL HDL Cholesterol 48.4 MG/DL Cholesterol/HDL Ratio 3.76 RATIO Vitals/IOs Vital Signs Date Time Temp Pulse Resp B/P (MAP) Pulse Ox O2 Delivery O2 Flow Rate FiO2 03/29/17 15:47 98.7 93 18 125/68 (87) 97 03/26/17 16:46 Room Air Assessment & Plan Problem List: (1) Schizoaffective disorder ICD Codes: F25.9 - Schizoaffective disorder, unspecified Assessment & Plan Patient noted to have improved mood, denies any perceptual disturbances, denies any SI. Continue current treatment. Discharge likely tomorrow. Discharge planning in progress. Justification for Cont. Inpt. At risk for further decompensation if at lower level of care. Carlos Martinez MD Mar 29, 2017 16:03
[2017-03-29] MEDS: REMOVE OLD NICOTINE PATCH T-DERMAL SCH (21:00)
[2017-03-30 06:09] VITALS: BP 110/67; PULSE 67; RESP 18; TEMP 98; O2SAT 96
[2017-03-30] MEDS: NICOTINE 21 MG/24 HR PATCH T-DERMAL SCH (08:35)
[2017-03-30] MEDS: DULoxetine HCl DR 30 MG CAP PO SCH (08:36)
[2017-03-30] MEDS: ARIPiprazole 10 MG TAB PO SCH (08:36)
[2017-03-30] MEDS: LORazepam 1 MG TAB PO PRN (08:37)
[2017-03-30] MEDS: IBUPROFEN 400 MG TAB PO PRN (08:37)
[2017-03-30] MEDS ORDERED: ARIP1TAB12 PO (10:22)
[2017-03-30] MEDS ORDERED: DULO1CAP2 PO (10:22)
--- NOTE | 2017-03-30 10:22 | HHI.DS ---
Psychiatry Discharge Summary Inpatient Psychiatric care?: Yes Advance Directive: No Reason Not Provided: REFUSES Mental Health AdvanceDirective: No Health Care Proxy: No Admission Admission Date Mar 27, 2017 at 01:23 Admission Diagnosis: (1) Schizoaffective disorder ICD Code: F25.9 - Schizoaffective disorder, unspecified Brief History Patient is a 41 y/o man, single, domiciled alone, unemployed on SSD, past psychiatric history of schizoaffective disorder, previous psychiatric admissions, two prior suicide attempts, no previous self injurious behavior who brought self to ED endorsing suicidal ideations and having attempted to walk into traffic trying to get hit by a car as well as endorsing perceptual disturbances. As per ED note, patient endorsed suicidal ideations, walked in front of traffic trying to get hit by car. Stated that he is going blind and endorsed auditory hallucinations. Work up showed: Utox (-), head CT (-), neck xray (-), CXR (-). Patient was seen on the psychiatry unit eating lunch but able to engage in interview with commercial lines underwriter and nurse. He states that he is losing more of his eyesight and felt depressed. He reports also missing his parents who in 2010 and 2012. He states that he has not taken his medications for the past couple of month and had been having suicidal ideations x 1 month. He states that the SI have been worsening and a couple of days ago had walked in front of traffic but did not get hit. He reports that a friend had advised him to go get help and upon his las ED visit was provided prescriptions which he had lost. He reports that lately he has been having AH whispering, last time being last night, noted decreased sleep, energy lately, no change in appetite, concentration, mood being more depressed after stopping his medications, occasional feeling of helplessness and hopelessness. Currently he reports feeling good denies SI, HI, AVH or delusions at this time. Family psychiatric history: mother with schizophrenia, no suicides. Past psychiatric history: previous psychiatric diagnosis of schizoaffective disorder, 7-8 previous psychiatric admissions, two previous suicide attempts, denies self injurious behavior. No history of abuse. Has outpatient psychiatrist at [facility], last seen 6 months ago. Substance use history: Tobacco (+), THC and cocaine use (last use was 4 months ago; denies previous rehabs or detox programs. Past medical history: denies Allergies: Haldol, Risperdal, Geodon, zoloft Social history: single, no children, living in house, alone, unemployed on SSD, highest education: high school diploma. Contact: Adrian Paredes [phone] Tobacco Use In Past 30 Days: 5 or More Cigarettes/Day Alcohol Use: 2-3 Times Per Week Hospital Course Patient is a 41 y/o man, single, domiciled alone, unemployed on SSD, past psychiatric history of schizoaffective disorder, previous psychiatric admissions, two prior suicide attempts, no previous self injurious behavior who brought self to ED endorsing suicidal ideations and having attempted to walk into traffic trying to get hit by a car as well as endorsing perceptual disturbances. Patient was started on aripiprazole and duloxetine which he tolerated well. Patient was noted to be with improved mood, participatory in groups and activities, and cooperative with staff. Upon discharge, patient denied any SI, HI, AVH or delusions. He agrees to continue treatment and outpatient follow up for continuity of care. Supportive psychotherapy provided. I have counseled the patient regarding warning signs for need to return to the psychiatric emergency room as part of a general safety plan. Results Blood Pressure 110 / 67 Vital Signs Date Time Temp Pulse Resp B/P (MAP) Pulse Ox O2 Delivery O2 Flow Rate FiO2 03/30/17 06:09 98.0 67 18 110/67 (81) 96 03/26/17 16:46 Room Air Laboratory Tests Test 03/29/17 09:15 Aspartate Amino Transf (AST/SGOT) 44 U/L (15-37) Alanine Aminotransferase (ALT/SGPT) 120 U/L (12-78) Triglycerides Level 162 MG/DL (42-150) LDL Cholesterol 101 MG/DL (0-99) Laboratory Results Test 03/29/17 09:15 Cholesterol Level 182 MG/DL (120-200) HDL Cholesterol 48.4 MG/DL (40.0-60.0) Hemoglobin A1c 5.2 % (4.3-6.0) LDL Cholesterol 101 MG/DL (0-99) Triglycerides Level 162 MG/DL (42-150) Summary of Procedures none Pending results at discharge: No Medications # of Antipsychotic meds at D/C: 1 Approp Antipsych med options 1 - Minimum of three failed multiple trials of monotherapy. 2 - Documented plan to taper to monotherapy due to previous use of multiple meds OR cross-taper in progress at D/C. 3 - Documentation of augmentation of Clozapine. 4 - Justification other than those listed in allowable values 1-3, document here : Discharge Discharge Date: Mar 30, 2017 Discharge Diagnosis: (1) Schizoaffective disorder Diagnosis: Principal ICD Code: F25.9 - Schizoaffective disorder, unspecified Mental Status Exam at Disch Appearance/Behavior: appears stated age, in casual clothing, calm and cooperative with interview. Fair eye contact Speech: normal rate, tone and prosody Mood: good Affect: euthymic TP: linear, goal-directed, future oriented TC: denies SI, HI, AVH or delusions Insight/Impulse control/judgment: fair Pt Condition on Discharge: Stable Discharge Disposition: Discharge Home Discharge Instructions Diet Instructions: As Tolerated, No Restrictions Activities you can perform: Regular-No Restrictions Scheduled Appointment: Zack Gale Appointment Date: Apr 02, 2017 Appointment Time: 7:30 am Discharge Time > 30 minutes Discharge/Advance Care Plan Health Problems: (1) Schizoaffective disorder Goals to promote your health * To prevent worsening of your condition and complications * To maintain your health at the optimal level Directions to meet your goals Take your medications as prescribed Follow your dietary instruction Follow activity as directed Keep your appointments as scheduled Take your immunizations and boosters as scheduled If your symptoms worsen call your PCP, if no PCP go to Urgent Care Center or Emergency Room For 18/01 questions related to your inpatient stay or results of tests pending at discharge, please contact Dr. Carlos Martinez at Smoking is Dangerous to Your Health. Avoid second hand smoking Carlos Martinez MD Mar 30, 2017 10:22
== END 2017-03-30 12:30 | disposition home or self-care (01) | DRG 885 ==
LOC: NEPD 15:19 → NEDA 03-27 01:23 → H270 03-27 02:02
PROVIDERS: ADMIT Student in an Organized Health Care Education/Training Program; ATTEND Student in an Organized Health Care Education/Training Program
DX: F25.9 Schizoaffective disorder, unspecified (principal); R45.851 Suicidal ideations; Z91.5 Personal history of self-harm; Z81.8 Family history of other mental and behavioral disorders; Z91.14 Patient's other noncompliance with medication regimen; Z72.0 Tobacco use; I10 Essential (primary) hypertension; M54.2 Cervicalgia; Y09 Assault by unspecified means; Y93.9 Activity, unspecified; Y92.9 Unspecified place or not applicable; Y99.9 Unspecified external cause status
CPT/HCPCS: 80053; 80061; 80307; 83036; 85025; Q0163

== ENCOUNTER 2017-04-06 15:41 | Emergency (ER) | payer OTHER ==
[~2017-04-06] VITALS: Ht 185.4 cm; Wt 80.0 kg
[~2017-04-06 15:41] MED LIST changes: +ARIP1TAB5 PO; -LITH300T3 PO; -QUET1TAB10 PO
[2017-04-06 15:57] VITALS: BP 141/88; PULSE 83; RESP 18; TEMP 98.6; O2SAT 99
--- NOTE | 2017-04-06 16:09 | PD ---
HPI Chief Complaint: Psychiatric Symptoms Time Seen by Provider: 15:57 Travel History International Travel<30 days: No Contact w/Intl Traveler<30days: No Traveled to known affect area: No History of Present Illness HPI 41 year old male presents to the emergency department under [place] act by local police for suicidal ideation. The patient states he has been depressed since his parents in 2012. However, his depression has worsened the past 2 days. He reports feeling suicidal with a plan to jump in front of traffic. Patient is also depressed because he is losing his eyesight and becoming blind. Reports history of bipolar disorder. He has no medical complaints at this time. He denies any attempt at this point to hurt himself. Patient states he rarely takes alcohol, smokes tobacco. He also admits to smoking cocaine 2 days ago. He denies any other illicit drug use. He denies any IVDU. PFSH Past Medical History Arthritis: No Asthma: No Autoimmune Disease: No Blood Disorders: No Anxiety: Yes Depression: Yes Heart Rhythm Problems: No Cancer: No Cardiovascular Problems: No High Cholesterol: No Chemotherapy: No Chest Pain: No Congestive Heart Failure: No COPD: No Cerebrovascular Accident: No Diminished Hearing: No Endocrine: No GERD: No Genitourinary: No Headaches: No Hiatal Hernia: No Herniated Disk: Yes (x 4) Hypertension: Yes Immune Disorder: No Kidney Stones: No Musculoskeletal: No Neurologic: No Psychiatric: Yes (depression) Reproductive: No Respiratory: No Immunizations Current: Yes Migraines: No Myocardial Infarction: No Radiation Therapy: No Renal Failure: No Schizophrenia: Yes Seizures: Yes Sickle Cell Disease: No Sleep Apnea: No Thyroid Disease: No Ulcer: No ?: Not Past Surgical History Abdominal Surgery: No AICD: No Arteriovenous Shunt: No Cardiac Surgery: No Ear Surgery: No Endocrine Surgery: No Eye Surgery: No Genitourinary Surgery: No Gynecologic Surgery: No Insulin Pump: No Joint Replacement: No Oral Surgery: No Pacemaker: No Thoracic Surgery: No Other Surgery: No Social History Alcohol Use: Yes (once or twice a month) Tobacco Use: Yes (PPD) Substance Use: No Allergies-Medications (Allergen,Severity, Reaction): Coded Allergies: sertraline (Unverified Allergy, Severe, Anaphylaxis, 02/09/17) haloperidol (Unverified Allergy, Mild, 02/09/17) risperidone (Unverified Allergy, Unknown, 02/09/17) Per CINTHIA Campa, [facility]. ziprasidone (Verified Allergy, Unknown, 04/06/17) Reported Meds & Prescriptions Reported Meds & Active Scripts Active Reported Duloxetine DR (Duloxetine HCl) 30 Mg Capdr 30 Mg PO BID Abilify (Aripiprazole) 10 Mg Tab 10 Mg PO DAILY Review of Systems Except as stated in HPI: all other systems reviewed are Neg Physical Exam Narrative GENERAL: Well-nourished, well-developed male patient, ambulatory. Afebrile. SKIN: Focused skin assessment warm/dry. HEAD: Normocephalic. Atraumatic. EYES: No scleral icterus. No injection or drainage. NECK: Supple, trachea midline. No JVD or lymphadenopathy. CARDIOVASCULAR: Regular rate and rhythm without murmurs, gallops, or rubs. RESPIRATORY: Breath sounds equal bilaterally. No accessory muscle use. Lungs sounds are clear to auscultation. GASTROINTESTINAL: Abdomen soft, non-tender, nondistended. MUSCULOSKELETAL: No cyanosis, or edema. PSYCHIATRIC: No delusional thought processes. No hallucinations. Data Data Last Documented VS Vital Signs Date Time Temp Pulse Resp B/P (MAP) Pulse Ox O2 Delivery O2 Flow Rate FiO2 04/06/17 15:59 89 18 04/06/17 15:57 98.6 141/88 (105) 99 Room Air Orders Orders Complete Blood Count With Diff (04/06/17 15:57) Comprehensive Metabolic Panel (04/06/17 15:57) Psych Screen (04/06/17 15:57) Drug Screen, Random Urine (04/06/17 15:57) Labs Laboratory Tests Test 04/06/17 15:57 04/06/17 16:11 Blood Urea Nitrogen 9 MG/DL Creatinine 1.08 MG/DL Random Glucose 86 MG/DL Total Protein 8.0 GM/DL Albumin 4.1 GM/DL Calcium Level 9.3 MG/DL Alkaline Phosphatase 76 U/L Aspartate Amino Transf (AST/SGOT) 50 U/L Alanine Aminotransferase (ALT/SGPT) 107 U/L Total Bilirubin 0.5 MG/DL Sodium Level 138 MEQ/L Potassium Level 4.0 MEQ/L Chloride Level 103 MEQ/L Carbon Dioxide Level 28.9 MEQ/L Anion Gap 6 MEQ/L Estimat Glomerular Filtration Rate 76 ML/MIN White Blood Count 9.4 TH/MM3 Red Blood Count 6.29 MIL/MM3 Hemoglobin 18.5 GM/DL Hematocrit 53.7 % Mean Corpuscular Volume 85.4 FL Mean Corpuscular Hemoglobin 29.4 PG Mean Corpuscular Hemoglobin Concent 34.4 % Red Cell Distribution Width 13.7 % Platelet Count 259 TH/MM3 Mean Platelet Volume 9.0 FL Neutrophils (%) (Auto) 72.5 % Lymphocytes (%) (Auto) 15.2 % Monocytes (%) (Auto) 8.3 % Eosinophils (%) (Auto) 3.2 % Basophils (%) (Auto) 0.8 % Neutrophils # (Auto) 6.8 TH/MM3 Lymphocytes # (Auto) 1.4 TH/MM3 Monocytes # (Auto) 0.8 TH/MM3 Eosinophils # (Auto) 0.3 TH/MM3 Basophils # (Auto) 0.1 TH/MM3 CBC Comment DIFF FINAL Differential Comment Urine Opiates Screen NEG Urine Barbiturates Screen NEG Urine Amphetamines Screen NEG Urine Benzodiazepines Screen NEG Urine Cocaine Screen NEG Urine Cannabinoids Screen NEG MDM Medical Decision Making Medical Screen Exam Complete: Yes Emergency Medical Condition: Yes Medical Record Reviewed: Yes Differential Diagnosis Bipolar disorder versus depression versus anxiety versus schizoaffective versus substance abuse Narrative Course 41-year-old male presents to the emergency department under Pitts act for suicidal ideation. CBC, CMP, urine drug screen are ordered and pending. CBC shows no acute abnormality. CMP shows elevated AST 50, ALT is 107. These appear chronic when reviewing previous labs. UDS is negative. Patient is medically cleared for psychiatric screening and disposition. Mental health screening discussed with the patient. Psychiatric screen ordered. Diagnosis Primary Impression: Depression with suicidal ideation Condition: Christal Hill Apr 06, 2017 16:09
[2017-04-06 16:27] LABS: AUTOMATED NEUTROPHIL # 6.8 TH/MM3 (1.8-7.7); BASOPHIL # 0.1 TH/MM3 (0-0.2); BASOPHIL % 0.8 % (0.0-2.0); EOSINOPHIL # 0.3 TH/MM3 (0-0.4); EOSINOPHIL % 3.2 % (0.0-4.0); HEMATOCRIT 53.7 % (39.0-51.0); HEMO FLAGS DIFF FINAL; LYMPH % 15.2 % (9.0-44.0); LYMPHOCYTE # 1.4 TH/MM3 (1.0-4.8); MEAN CELL VOLUME 85.4 FL (80.0-100.0); MEAN CORPUSCULAR HEMOGLOBIN 29.4 PG (27.0-34.0); MEAN CORPUSCULAR HGB CONC 34.4 % (32.0-36.0); MONO % 8.3 % (0.0-8.0); NEUT % 72.5 % (16.0-70.0); PLATELET COUNT 259 TH/MM3 (150-450); RED BLOOD COUNT 6.29 MIL/MM3 (4.50-5.90); RED CELL DISTRIBUTION WIDTH 13.7 % (11.6-17.2); WHITE BLOOD COUNT 9.4 TH/MM3 (4.0-11.0)
[2017-04-06 17:02] LABS: ALKALINE PHOSPHATASE 76 U/L (45-117); TOTAL BILIRUBIN ADULT 0.5 MG/DL (0.2-1.0)
[2017-04-06 17:03] LABS: ALT (GPT) 107 U/L (12-78); ANION GAP 6 MEQ/L (5-15); AST (GOT) 50 U/L (15-37); BICARBONATE 28.9 MEQ/L (21.0-32.0); BLOOD UREA NITROGEN 9 MG/DL (7-18); CHLORIDE 103 MEQ/L (98-107); GLOMERULAR FILTRATION RATE 76 ML/MIN (>89); SODIUM (NA) 138 MEQ/L (136-145)
[2017-04-06 18:30] VITALS: BP 144/84; PULSE 66; RESP 18; TEMP 98.7; O2SAT 99
[2017-04-07 06:18] VITALS: BP 130/68; PULSE 75; RESP 18; O2SAT 98
[2017-04-07 15:27] VITALS: BP 134/64; PULSE 75; RESP 18; O2SAT 95
[2017-04-07 18:34] VITALS: BP 142/70; PULSE 64; RESP 18; O2SAT 97
[2017-04-07 22:01] VITALS: BP 132/72; PULSE 95; RESP 18; O2SAT 97
[2017-04-08 02:00] VITALS: BP 142/81; PULSE 96; RESP 18; TEMP 98.6; O2SAT 95
[2017-04-08 06:16] VITALS: BP 147/69; PULSE 66; RESP 18; TEMP 98.1; O2SAT 98
--- NOTE | 2017-04-08 09:43 | PD ---
History of Present Illness Chief Complaint: Psychiatric Symptoms Time Seen by Provider: 09:10 Travel History International Travel<30 Days: No Contact w/Intl Traveler<30days: No Known affected area: No Legal Status Legal Status: Pitts Act Pitts Act Signed By: Lia Layton History of Present Illness: History of Present Illness 41 year old male with history of schizoaffective disorder, bipolar type, substance use dis order who presents to the emergency department under [place] act by local police for suicidal ideation. The patient states he has been depressed since his parents in 2012. However, his depression has worsened the past 2 days. He reports feeling suicidal with a plan to jump in front of traffic. He denies any attempt at this point to hurt himself. He also admits to smoking cocaine 2 days ago. He denies any other illicit drug use. He denies any IVDU. EMR reviewed. Multiple Ed visits as well as admissions to [facility] psychiatry dept. He was released on Mar 30, 2017 but failed to keep follow up appointment at [facility]. He has also admitted to using crack 2 days ago. Patient monitored here in ED over extended period of time with no suicidality. This morning he reports that he is doing better. No hallucinations , no douglas, no suicidal or homicidal ideation. He slept well and presented no behavioral dysregulation. He states he will follow up with [facility]. [facility] Past Medical History Arthritis: No Asthma: No Autoimmune Disease: No Blood Disorders: No Bipolar Disorder: Yes Anxiety: Yes Depression: Yes Heart Rhythm Problems: No Cancer: No Cardiovascular Problems: No High Cholesterol: No Chemotherapy: No Chest Pain: No Congestive Heart Failure: No COPD: No Cerebrovascular Accident: No Diminished Hearing: No Endocrine: No Gastrointestinal Disorders: No GERD: No Genitourinary: No Headaches: No Hiatal Hernia: No Heparin Induced Thrombocytopen: No Herniated Disk: Yes (x 4) Hypertension: Yes Immune Disorder: No Implanted Vascular Access Dvce: No Kidney Stones: No Musculoskeletal: No Neurologic: No Psychiatric: Yes (depression) Reproductive: No Respiratory: No Immunizations Current: Yes Migraines: No Myocardial Infarction: No Radiation Therapy: No Renal Failure: No Schizophrenia: Yes Seizures: Yes Sickle Cell Disease: No Sleep Apnea: No Thyroid Disease: No Ulcer: No ?: Not Past Surgical History Abdominal Surgery: No AICD: No Arteriovenous Shunt: No Cardiac Surgery: No Ear Surgery: No Endocrine Surgery: No Eye Surgery: No Genitourinary Surgery: No Gynecologic Surgery: No Insulin Pump: No Joint Replacement: No Neurologic Surgery: No Oral Surgery: No Pacemaker: No Thoracic Surgery: No Other Surgery: No Psychiatric History Psychiatric History Hx Psychiatric Treatment: HX OF BIPOLAR DISORDER. PAST DX OF SCHIZOPHRENIA. HAS BEEN ADMITTED MANY TIMES TO [facility]. Discharged from [facility] on 2016. History of Inpatient Treatment: Yes Guns or firearms in home: No Social History Single male. Lives by himself. On SSI. , Hx Alcohol Use: Yes (once or twice a month) Hx Tobacco Use: Yes (PPD) Hx Substance Use: No (HX OF COCAINE) Substance Use Type: Marijuana, Cocaine Other Substances Used: Last used 2 days ago Hx of Substance Use Treatment: No Family Psychiatric History Mother with schizophrenia Allergies-Medications (Allergen,Severity, Reaction): Coded Allergies: sertraline (Unverified Allergy, Severe, Anaphylaxis, 04/06/17) haloperidol (Unverified Allergy, Mild, 04/06/17) risperidone (Unverified Allergy, Unknown, 04/06/17) Per CINTHIA Campa, [facility]. ziprasidone (Verified Allergy, Unknown, 04/06/17) Reported Meds & Prescriptions Reported Meds & Active Scripts Active Reported Duloxetine DR (Duloxetine HCl) 30 Mg Capdr 30 Mg PO BID Abilify (Aripiprazole) 10 Mg Tab 10 Mg PO DAILY Review of Systems Eyes: COMPLAINS OF: Vision loss Mental Status Examination Appearance: Appropriate Consciousness: Alert Orientation: x4 Motor Activity: Normal gait Speech: Unremarkable Language: Adequate Fund of Knowledge: Adequate Attention and Concentration: Adequate Memory: Unremarkable Mood: Appropriate, Good Affect: Appropriate Thought Process & Associations: Intact, Logical, Goal directed Thought Content: Appropriate Hallucination Type: None Delusion Type: None Suicidal Ideation: No Suicidal Plan: No Suicidal Intention: No Homicidal Ideation: No Homicidal Plan: No Homicidal Intention: No Insight: Poor Judgment: Poor MDM Medical Decision Making Medical Record Reviewed: Yes Assessment/Plan 41 year old male with history of schizoaffective disorder, bipolar type, substance use dis order who presents to the emergency department under [place] act by local police for suicidal ideation. The patient states he has been depressed since his parents in 2012. However, his depression has worsened the past 2 days. He reports feeling suicidal with a plan to jump in front of traffic. he did not make any attempt at harming self. Patient at this time is not suicidal or homicidal . He will be discharged to follow up with [facility]. manager fleet to assist with setting up appointment. Psychoeducation. Emphasis on importance on following up with outpatient. Lift BA. Orders Orders Diet Regular Basic (04/07/17 Lunch) Diet Regular Basic (04/07/17 Dinner) Diet Regular Basic (04/08/17 Breakfast) Results Vital Signs Date Time Temp Pulse Resp B/P (MAP) Pulse Ox O2 Delivery O2 Flow Rate FiO2 04/08/17 06:16 98.1 66 18 147/69 (95) 98 Room Air 04/08/17 02:00 98.6 96 18 142/81 (101) 95 Room Air 04/07/17 22:01 95 18 132/72 (92) 97 Room Air 04/07/17 18:34 64 18 142/70 (94) 97 Room Air 04/07/17 15:27 75 18 134/64 (87) 95 Room Air Diagnosis Primary Impression: Schizoaffective disorder, bipolar type Additional Impression: Drug-induced mood disorder Ruled Out: Depression with suicidal ideation Psychiatrically Cleared: Yes Med/ Other Pt Specific Info: No Change to Meds Disposition: 01 DISCHARGE HOME Condition: Stable Problem Qualifiers Arianna Barksdale Apr 08, 2017 09:43
--- NOTE | 2017-04-08 09:45 | PD ---
Physical Exam Time Seen by Provider: 09:43 Narrative Please see previous providers documentation for details surrounding the patient' s current visit. Data Data Last Documented VS Vital Signs Date Time Temp Pulse Resp B/P (MAP) Pulse Ox O2 Delivery O2 Flow Rate FiO2 04/08/17 06:16 98.1 66 18 147/69 (95) 98 Room Air Orders Orders Complete Blood Count With Diff (04/06/17 15:57) Comprehensive Metabolic Panel (04/06/17 15:57) Psych Screen (04/06/17 15:57) Drug Screen, Random Urine (04/06/17 15:57) Diet Regular Basic (04/07/17 Breakfast) Diet Regular Basic (04/07/17 Lunch) Diet Regular Basic (04/07/17 Dinner) Diet Regular Basic (04/08/17 Breakfast) Labs Laboratory Tests Test 04/06/17 15:57 04/06/17 16:11 Blood Urea Nitrogen 9 MG/DL Creatinine 1.08 MG/DL Random Glucose 86 MG/DL Total Protein 8.0 GM/DL Albumin 4.1 GM/DL Calcium Level 9.3 MG/DL Alkaline Phosphatase 76 U/L Aspartate Amino Transf (AST/SGOT) 50 U/L Alanine Aminotransferase (ALT/SGPT) 107 U/L Total Bilirubin 0.5 MG/DL Sodium Level 138 MEQ/L Potassium Level 4.0 MEQ/L Chloride Level 103 MEQ/L Carbon Dioxide Level 28.9 MEQ/L Anion Gap 6 MEQ/L Estimat Glomerular Filtration Rate 76 ML/MIN White Blood Count 9.4 TH/MM3 Red Blood Count 6.29 MIL/MM3 Hemoglobin 18.5 GM/DL Hematocrit 53.7 % Mean Corpuscular Volume 85.4 FL Mean Corpuscular Hemoglobin 29.4 PG Mean Corpuscular Hemoglobin Concent 34.4 % Red Cell Distribution Width 13.7 % Platelet Count 259 TH/MM3 Mean Platelet Volume 9.0 FL Neutrophils (%) (Auto) 72.5 % Lymphocytes (%) (Auto) 15.2 % Monocytes (%) (Auto) 8.3 % Eosinophils (%) (Auto) 3.2 % Basophils (%) (Auto) 0.8 % Neutrophils # (Auto) 6.8 TH/MM3 Lymphocytes # (Auto) 1.4 TH/MM3 Monocytes # (Auto) 0.8 TH/MM3 Eosinophils # (Auto) 0.3 TH/MM3 Basophils # (Auto) 0.1 TH/MM3 CBC Comment DIFF FINAL Differential Comment Urine Opiates Screen NEG Urine Barbiturates Screen NEG Urine Amphetamines Screen NEG Urine Benzodiazepines Screen NEG Urine Cocaine Screen NEG Urine Cannabinoids Screen NEG MDM Medical Record Reviewed: Yes Supervised Visit with FRANCINE: No Narrative Course Patient was seen and evaluated by medical staff, medically cleared, then evaluated by psychiatry today. Pitts act has been listed. Patient will be discharged at this time with no further medical needs. Diagnosis Primary Impression: Depression with suicidal ideation Additional Impression: Malingering Referrals: [facility] (Out patient) [facility] Instructions: General Instructions, Polysubstance Abuse (ED) Additional Instruction: Follow-up with a primary care provider Utilize outpatient resources as provided Return immediately to the emergency department with any acute worsening of symptoms Med/Other Pt SpecificInfo: No Change to Meds Disposition: 01 DISCHARGE HOME Condition: Stable Nina Stephenson Apr 08, 2017 09:45
== END 2017-04-08 11:09 | disposition home or self-care (01) ==
LOC: NEPD 15:41 → NEPJ 04-08 11:09
DX: F25.0 Schizoaffective disorder, bipolar type (principal); F19.94 Other psychoactive substance use, unspecified with psychoactive substance-induced mood disorder; F17.210 Nicotine dependence, cigarettes, uncomplicated; Z79.899 Other long term (current) drug therapy
CPT/HCPCS: 80053; 80307; 85025; 99284

== ENCOUNTER 2018-05-07 09:33 | Inpatient (IN) ==
[2018-05-07] MEDS ORDERED: predniSONE 20 MG Tablet PO ONE (10:14)
[2018-05-07] MEDS ORDERED: Methocarbamol 500 MG Tablet PO ONE (10:14)
[2018-05-07 10:35] LABS: Baso # (Auto) 0.1 th/mm3 (0.0-0.2); Baso % (Auto) 0.6 % (0.0-2.0); Eos # (Auto) 0.1 th/mm3 (0.0-0.4); Eos % (Auto) 1.5 % (0.0-4.0); Hematocrit 51.7 % (39.0-51.0); Lymph # (Auto) 1.3 th/mm3 (1.0-4.8); Lymph % (Auto) 14.1 % (9.0-44.0); Mean Corpuscular HGB Conc 34.9 % (32.0-36.0); Mean Corpuscular Volume 85.9 fL (80.0-100.0); Mean Platelet Volume 8.5 fL (7.0-11.0); Mono % (Auto) 10.3 % (0.0-8.0); Neut # (Auto) 6.9 th/mm3 (1.8-7.7); Neut % (Auto) 73.5 % (16.0-70.0); Platelet Count 227 th/mm3 (150-450); Red Blood Count 6.02 mil/mm3 (4.50-5.90); Red Cell Distribution Width 13.3 % (11.6-17.2); White Blood Count 9.4 th/mm3 (4.0-11.0)
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
[2018-05-07 11:03] LABS: Glucose,Random 91 mg/dL (74-106)
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
[2018-05-07 11:11] LABS: Alkaline Phosphatase 63 U/L (45-117); Total Protein 7.6 g/dL (6.4-8.2)
[2018-05-07 11:51] LABS: Alanine Aminotransferase 67 U/L (12-78); Albumin 4.1 g/dL (3.4-5.0); Anion Gap 7 meq/L (5-15); Aspartate Aminotransferase 52 U/L (15-37); Blood Urea Nitrogen 7 mg/dL (7-18); Carbon Dioxide 27.9 meq/L (21.0-32.0); Chloride 104 meq/L (98-107); Glomerular Filtration Rate Greater Than 89 mL/min (>89); Magnesium 2.2 mg/dL (1.5-2.5); Potassium 4.6 meq/L (3.5-5.1); Sodium 139 meq/L (136-145)
[2018-05-07 12:08] LABS: Amphetamine Screen,Urine Neg (Neg); Barbiturate Screen,Urine Neg (Neg); Cannabinoid Screen,Urine Pos (Neg); Cocaine Screen,Urine Neg (Neg); Opiate Screen,Urine Neg (Neg)
[2018-05-07] MEDS ORDERED: Aluminum/Magnesium/Simethacone Susp 30 ML UDC PO PRN (23:29)
[2018-05-08] MEDS: ARIPiprazole 10 MG Tablet PO SCH (08:59)
[2018-05-08] MEDS: Senna/Docusate Sodium 8.6/50 MG Tablet PO SCH ×2 (09:03→20:58)
[2018-05-08 09:36] LABS: Chol/HDL Ratio 4.12 Ratio
[2018-05-08 11:31] LABS: Hemoglobin A1c 5.1 % (4.3-6.0)
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
[2018-05-09] MEDS: ARIPiprazole 10 MG Tablet PO SCH (08:25)
[2018-05-09] MEDS: Senna/Docusate Sodium 8.6/50 MG Tablet PO SCH ×2 (08:25→21:10)
--- NOTE | 2018-05-09 17:42 | P.PNPSY ---
Subjective Chief Complaint: SI Remarks: Patient is a 42-year-old man, single, domiciled with roommate, with a past psychiatric history of schizoaffective disorder, previous psychiatric admissions, previous suicide attempts was admitted recently due to auditory hallucinations and increasing depressive symptoms along with suicide ideation with plan to jump off of a bridge which patient was admitted to the inpatient psychiatry unit for further evaluation and management. Patient currently under voluntary admission. Patient states that he continues to feel "the same" reporting feeling very depressed along with continue suicide ideations. Patient reports having difficulty with sleep in the evening but reports having taken trazodone in the past which has helped. Patient recalls having one previous suicide attempt back in 2017 when she walked into traffic. Patient reports his current stressors to include having being legally blind, and mother having 2017. Patient denies any social support but states he domiciled with roommate. He reports having auditory hallucinations "all day" but denying them being command in nature. Review of Systems All other systems reviewed negative except as stated in HPI Mental Status Examination Appearance: Appropriate Consciousness: Vigilant Orientation: x4 Motor Activity: Normal gait Speech: Pressured Language: Adequate Fund of Knowledge: Adequate Attention and Concentration: Adequate Memory: Unremarkable Mood: Sad Affect: Sad Thought Process & Associations: Intact Thought Content: Hallucinations, Derealization, Delusional Hallucination Type: Auditory Delusion Type: Paranoid Suicidal Ideation: Yes Suicidal Plan: No Suicidal Intention: No Homicidal Ideation: No Homicidal Plan: No Homicidal Intention: No Insight: Poor Judgment: Poor Assessment and Plan - Assessment (1) Schizoaffective disorder Code(s): F25.9 - Schizoaffective disorder, unspecified Status: Acute - Plan Plan: Patient this time continues with depressed mood along with suicide ideations and auditory clues. We will continue to titrate Abilify to 50 mg p.o. at bedtime, continue rest of medications. We will also add trazodone 50 mg p.o. at bedtime for sleep disturbance. We will continue to monitor mood and behavior. Discharge planning in progress. Justification for Continued Inpatient Stay: At risk of further decompensation at lower level care.
[2018-05-09] MEDS: Acetaminophen 325 MG Tablet PO PRN (18:37)
[2018-05-09] MEDS: traZODone 50 MG Tablet PO SCH (21:12)
[2018-05-10] MEDS: Senna/Docusate Sodium 8.6/50 MG Tablet PO SCH ×2 (12:33→21:43)
--- NOTE | 2018-05-10 14:42 | P.PNPSY ---
Subjective Chief Complaint: SI Remarks: Patient seen for follow-up, chart reviewed. Discussion with nursing staff reported that patient no behavioral disturbances, he is not reports suicidal ideation. Patient was found ambulating on unit noted B, cooperative. Patient state he is feeling "high anxiety" stating that he is always had this level of anxiety in the past but states the Atarax helps. Patient reports feeling depressed, "deep depression" stating that his worsening eyesight and missing his mother have contributed to his current mood. He states that he has continuing having suicidal ideation but states he is feeling safe here in the hospital would not try to hurt himself either. He mentions being worried about having been told of having hepatitis C in the past and later and reported that he did not have this at a different facility. Continues to deny any perceptional services or delusions. Patient appears somewhat somatic stating worried about his liver function, having recent sunburn on his neck believing he might have melanoma. Review of Systems All other systems reviewed negative except as stated in HPI Mental Status Examination Appearance: Appropriate Consciousness: Vigilant Orientation: x4 Motor Activity: Normal gait Speech: Pressured Language: Adequate Fund of Knowledge: Adequate Attention and Concentration: Adequate Memory: Unremarkable Mood: Sad Affect: Sad Thought Process & Associations: Intact Thought Content: Hallucinations, Derealization, Delusional Hallucination Type: None Delusion Type: Paranoid, Somatic Suicidal Ideation: Yes Suicidal Plan: No Suicidal Intention: No Homicidal Ideation: No Homicidal Plan: No Homicidal Intention: No Insight: Poor Judgment: Poor Assessment and Plan - Assessment (1) Schizoaffective disorder Code(s): F25.9 - Schizoaffective disorder, unspecified Status: Acute - Plan Plan: Patient continues to report depressed mood along with continue suicide ideations. We will increase Cymbalta to 20 mg p.o. twice daily for depression, continue rest of medication. Continue to monitor mood and behavior. Discharge planning in progress. Justification for Continued Inpatient Stay: At risk of further decompensation at lower level care.
[2018-05-10] MEDS: Acetaminophen 325 MG Tablet PO PRN (21:25)
[2018-05-10] MEDS: traZODone 50 MG Tablet PO SCH (21:25)
[2018-05-11] MEDS: Senna/Docusate Sodium 8.6/50 MG Tablet PO SCH ×2 (08:15→22:42)
[2018-05-11] MEDS: Acetaminophen 325 MG Tablet PO PRN ×2 (13:32→21:23)
--- NOTE | 2018-05-11 15:13 | P.PNPSY ---
Subjective Chief Complaint: SI Remarks: Patient seen for follow-up, chart reviewed. Discussion with nursing staff reported that patient continues to endorse having auditory hallucinations suicide ideations to patient was found participating in group activity noted B, cooperative. Patient states that his depression is improving and feels medications are helping. Patient reports having slept better with the addition of trazodone. He also reports anxiety also improving with Atarax during the day as needed. He reports having decreased suicide ideations now that they are fleeting and of less duration. He states that he no longer has audible auditory hallucinations but stating "only my mind". Patient mentions that he had run out of money and was unable to fill prescriptions when he is discharged from the hospital and states that he will receive his next check beginning of May. Review of Systems All other systems reviewed negative except as stated in HPI Mental Status Examination Appearance: Appropriate Consciousness: Vigilant Orientation: x4 Motor Activity: Normal gait Speech: Pressured Language: Adequate Fund of Knowledge: Adequate Attention and Concentration: Adequate Memory: Unremarkable Mood: Other ("Better") Affect: Sad (Lessening) Thought Process & Associations: Intact Thought Content: Hallucinations (Denies today) Hallucination Type: None Delusion Type: Paranoid, Somatic Suicidal Ideation: Yes (Intermittent, fleeting) Suicidal Plan: No Suicidal Intention: No Homicidal Ideation: No Homicidal Plan: No Homicidal Intention: No Insight: Fair Judgment: Impulsive Assessment and Plan - Assessment (1) Schizoaffective disorder Code(s): F25.9 - Schizoaffective disorder, unspecified Status: Acute - Plan Plan: Patient continues to endorse intermittent suicide ideations but is decreasing in intensity and frequency, reporting depressed mood improving. We will continue current treatment. We will continue monitor mood and behavior. Discharge planning in progress. Justification for Continued Inpatient Stay: At risk of further decompensation at lower level care.
[2018-05-11] MEDS: traZODone 50 MG Tablet PO SCH (21:23)
[2018-05-12] MEDS: Senna/Docusate Sodium 8.6/50 MG Tablet PO SCH ×2 (08:34→23:36)
--- NOTE | 2018-05-12 08:46 | P.TTN ---
- Patient Problems Problems: 1. Discharge planning 2. Medication compliance 3. Knowledge deficit 4. Lack of coping skills - Progress Toward Goals Provider Present: Dr. Paulette Martinez Provider Input: 05/11: Pt is known to this facility for previous admissions; current SI Nurse(s) Present: Kiah Nurse Input: 05/12: Pt stated that he does not has SI as often; cooperative and compliant with medication; doctor will discharge by Wednesday Psychiatric Counselors Present: Geraldo Laboy Jr., [facility] Psychiatric Therapist Input: 05/11: Pt has a home to return to upon discharge; he is waiting to receive his disability check Group Spec/RT/OT/BUSTOS Present: AKASH Castro, Rohit Leonard, OT Group Spec/RT/OT/BUSTOS Input: 05/11: Pt has attended communion group only; he remains seclusive to room - Discharge Plan Other 05/11: Discharge planning in process. Pt will return home when discharged - Documentation Teaching Recipient: Patient
--- NOTE | 2018-05-12 17:51 | P.PNPSY ---
Subjective Chief Complaint: SI Remarks: Patient seen for follow-up, chart reviewed. Discussion with nursing staff reported that patient continues to report fleeting suicide ideations with staff and auditory hallucinations. Patient was found heavily on unit noted B, cooperative. Patient states that he is feeling that he is improving and almost ready to go home. He denies any suicide ideations stating that he had come much less now and that he no longer has audible" hallucinations but that now they are just his thoughts. Patient reports eating and drinking well tolerating medication well and denies any side effects from medications. Discussion had to be patient discharged tomorrow back to his regimen was reviewed patient which she agrees. Review of Systems All other systems reviewed negative except as stated in HPI Mental Status Examination Appearance: Appropriate Consciousness: Alert Orientation: x4 Motor Activity: Normal gait Speech: Pressured Language: Adequate Fund of Knowledge: Adequate Attention and Concentration: Adequate Memory: Unremarkable Mood: Appropriate Affect: Blunt Thought Process & Associations: Intact Thought Content: Appropriate Hallucination Type: None Delusion Type: None Suicidal Ideation: Yes (Denies today) Suicidal Plan: No Suicidal Intention: No Homicidal Ideation: No Homicidal Plan: No Homicidal Intention: No Insight: Fair Judgment: Impulsive Assessment and Plan - Assessment (1) Schizoaffective disorder Code(s): F25.9 - Schizoaffective disorder, unspecified Status: Acute - Plan Plan: Patient appeared to be improving with decrease in auditory hallucinations and suicidal ideations today. We will continue current treatment. Patient likely for discharge tomorrow back to his residence with outpatient follow-up. Continue to monitor mood and behavior. Discharge planning in progress. Justification for Continued Inpatient Stay: At risk of further decompensation at lower level care.
[2018-05-12] MEDS: Acetaminophen 325 MG Tablet PO PRN (18:11)
[2018-05-12] MEDS: traZODone 50 MG Tablet PO SCH (20:25)
[2018-05-13 00:39] VITALS: RESP 18
[2018-05-13 05:54] VITALS: BP 128/62; PULSE 55; TEMP 97.3; O2SAT 97
[2018-05-13] MEDS: Senna/Docusate Sodium 8.6/50 MG Tablet PO SCH (08:44)
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
== END 2018-05-13 13:15 | disposition home or self-care (01) ==
LOC: NEPE 09:33 → NEDA 21:37 → H260 22:06
PROVIDERS: ADMIT Student in an Organized Health Care Education/Training Program; ATTEND Student in an Organized Health Care Education/Training Program